=== PATIENT | male | born 1970 | race Caucasian/White ===

== ENCOUNTER 2021-12-02 06:25 | Inpatient (IN) | payer OTHER ==
[~2021-12-02] VITALS: Ht 182.9 cm; Wt 85.9 kg
[~2021-12-02 06:25] MED LIST: ASPI81CH PO; IBUP200 PO; LISI5 PO; Lisinopril-Hct1 EAC4 PO; METO50ER PO; NITR.4SL SL; SIMV5
[2021-12-02 06:54] LABS: BASOPHILS ABSOLUTE AUTO 0.05 K/mm3 (0.00-0.23); BASOPHILS PERCENT AUTO 0 % (0-2); EOSINOPHILS ABSOLUTE AUTO 0.07 K/mm3 (0.00-0.68); EOSINOPHILS PERCENT AUTO 1 % (0-6); Hematocrit 42.7 % (37.0-53.0); IMMATURE GRAN ABSOLUTE AUTO 0.05 K/mm3 (0.00-0.10); IMMATURE GRAN PERCENT AUTO 0 % (0-1); LYMPHOCYTES ABSOLUTE AUTO 0.84 K/mm3 (0.84-5.20); LYMPHOCYTES PERCENT AUTO 7 % (21-46); MONOCYTES ABSOLUTE AUTO 0.65 K/mm3 (0.16-1.47); MONOCYTES PERCENT AUTO 5 % (4-13); Mean Corpuscular HGB Conc 35.1 g/dL (31.5-36.5); Mean Corpuscular Volume 83 fL (80-100); Mean Platelet Volume 8.9 fL (9.1-12.4); NEUTROPHILS ABSOLUTE AUTO 11.09 K/mm3 (1.96-9.15); NEUTROPHILS PERCENT AUTO 87 % (41-73); Platelet Count 364 K/mm3 (150-400); RDW Coefficient Variation 14.6 % (11.7-14.2); RDW Standard Deviation 44.3 fL (35.1-46.3); Red Blood Cell Count 5.17 M/mm3 (4.30-5.90); White Blood Cell Count 12.75 K/mm3 (4.00-11.30)
[2021-12-02 07:10] LABS: Albumin/Globulin Ratio 0.6 (0.8-1.8); Bilirubin, Total 0.8 mg/dL (0.1-1.0); Calcium, Blood 9.5 mg/dL (8.5-10.1); Creatinine, Blood 0.67 mg/dL (0.60-1.20); Potassium, Blood 3.9 mmol/L (3.5-5.5)
--- NOTE | 2021-12-02 09:09 | NUR ---
History, Chart, Medications and Allergies reviewed before start of procedure.Patient confirms NPO status and agrees with scheduled surgery. Pre-Op teaching done. Pt verbalizes understanding. at bedside.
--- NOTE | 2021-12-02 09:53 | NUR ---
PT WAS EMERGENT, IN EXTREME PAIN, SWEATING, VOMITING, AND RUSHED BACK TO OR SOON ANESTHESIA AND DR HAD SEEN. PRE-OP MAY BE INCOMPLETE, COMPLETED TASKS TO THE BEST OF MY ABILITY IN THE GIVEN SITUATION.
--- NOTE | 2021-12-02 13:33 | NUR ---
ASSUMED CARE AT 1330, REPORT FROM ISAIAH MUELLER
--- NOTE | 2021-12-02 15:23 | NUR ---
AT 1430 REPORT GIVEN TO ANUM LIZ, HE WANTED TO MAKE SURE PT WAS SURG STATUS, AND TALK WITH DR ORDONEZ ABOUT TEMP DROP. RN KEPT PT IN PACU UNTILL SHE COULD GET CLAIFICATION FROM DR ORDONEZ WHO WAS IN SURGERY BUT ALMOST DONE. RN MOVED PT FROM PACU STATUS TO SURG AND PROVIDED VITALS/MONITORING. DR ORDONEZ UPDATED ON VITALS OKAY WITH PT GOING TO SURGICAL FLOOR. RN TOOK PT TO ROOM 211 WITH BELONGINGS.
--- NOTE | 2021-12-02 15:25 | NUR ---
1258 PT HAS 2 LIZETTE DRAINAGE TUBES, PICCO DRESSING WITH LEN UNDERNEATH, AND NEW STOMA PINK/RED COLORING.
--- NOTE | 2021-12-02 20:03 | NUR ---
ADMIT NOTE PATIENT NEW ADMIT TO UNIT FROM OR. WENT FROM ER TO OR WITH DR ORDONEZ FOR EX LAP FOR ABD PAIN. COLON CANCER FOUND IN SIGMOID COLON, COLECTOMY WAS DONE WITH LEFT ABD OSTOMY. MIDLINE SINCERE DRESSING C/D/I, AND BILAT LOWER LIZETTE DRAINS. METS WERE SEEN ON LIVER AND AND BOWEL WAS PERFED WITH STOOL IN ABD CAVITITY. PATIENT ARRIVED IN ROOM LETHARGIC BUT ABLE TO RESPOND APPROPRIATELY. ON 4L NC IN MOUTH. SATS STABLE IN 90S. NG TUBE TO RIGHT NARE. NG WAS PLACED TO LIWS. DILAUDID CNC MACHINE PROGRAMMER WAS STARTED. O2 WAS WEANED OFF. CONT BIOX WAS SET UP. IV FLUID WITH ABX WAS STARTED. SPOUSE WAS ATTENTIVE AT BEDSIDE. SULLIVAN PATENT AND DRAINING DARK DAVID URINE. REPORT GIVEN TO BLOCK HACKER RN.
[2021-12-03 04:07] LABS: Hemoglobin 13.1 g/dL (13.5-17.5); Mean Corpuscular HGB 28.7 pg (26.0-34.0); Mean Corpuscular HGB Conc 33.6 g/dL (31.5-36.5); Mean Corpuscular Volume 86 fL (80-100); Mean Platelet Volume 8.7 fL (9.1-12.4); Platelet Count 297 K/mm3 (150-400); RDW Coefficient Variation 15.4 % (11.7-14.2); RDW Standard Deviation 48.2 fL (35.1-46.3); Red Blood Cell Count 4.56 M/mm3 (4.30-5.90); White Blood Cell Count 11.69 K/mm3 (4.00-11.30)
[2021-12-03 04:30] LABS: BAND PERCENT MAN 41 % (0-8); BASOPHILS PERCENT MAN 0 % (0-2); EOSINOPHILS PERCENT MAN 0 % (0-6); LYMPHOCYTES ABSOLUTE MAN 0.35 K/mm3 (0.84-5.20); LYMPHOCYTES PERCENT MAN 3 % (21-46); MONOCYTES ABSOLUTE MAN 0.35 K/mm3 (0.16-1.47); MONOCYTES PERCENT MAN 3 % (4-13); NEUTROPHILS ABSOLUTE MAN 10.98 K/mm3 (1.96-9.15); SEG NEUTROPHILS PERCENT MAN 53 % (41-73); TOTAL CELLS COUNTED 100
[2021-12-03 04:32] LABS: Albumin, Blood 1.9 g/dL (3.4-5.0); Albumin/Globulin Ratio 0.5 (0.8-1.8); Bilirubin, Total 0.6 mg/dL (0.1-1.0); Bun/Creatinine Ratio 23.6 (12.0-20.0); Calcium, Blood 8.1 mg/dL (8.5-10.1); Creatinine, Blood 0.85 mg/dL (0.60-1.20); Potassium, Blood 4.3 mmol/L (3.5-5.5)
[2021-12-03 05:31] LABS: Total Protein, Blood 5.9 g/dL (6.4-8.2)
--- NOTE | 2021-12-03 07:15 | NUR ---
GRADUATE RESEARCH ASSISTANT SUMMARY POD 0 COLECTOMY WITH OSTOMY PLACEMENT. NO OUTPUT IN OSTOMY AT THIS TIME. APPROXIMATELY 260 ML OF OUTPUT BETWEEN BOTH LIZETTE DRAINS, LEFT DRAIN WITH SLIGHTLY MORE OUTPUT. MIDLINE SINCERE DRESSING C/D/I. PAIN WELL CONTROLLED WITH DILAUDID SPRING WINDER. PT ON 2-3L OF O2 SATTING 89-93%. MEDICATED WITH ATIVAN X2 FOR MILD WITHDRAWAL SYMPTOMS, PT VERY ANXIOUS AT TIMES AND DIAPHORETIC. PT ABLE TO SLEEP WELL AFTER ATIVAN. VSS, WCTM.
--- NOTE | 2021-12-03 10:30 | NUR ---
Call and new referral received for pt admitted yesterday with severe abd pain and emergent surgery due to bowel perforation from neoplasm. Pt found to have colon cancer with metastasis to liver. This is a new DX. Dr birch. Plan to see pt/ this afternoon for supportive visit. Pt has new colostomy and multiple drains placed after surgery. Pt also heavy alcohol user and withdrawl precautions, Rxs in place. RN reports pt and experiencing high level of anxiety.
--- NOTE | 2021-12-03 11:22 | NUR ---
SULLIVAN REMOVED. PT TOLERATING WELL. PT ENJOYING ICE CHIPS AT THIS TIME. DENIES NAUSEA OR INCREASE IN PAIN.
--- NOTE | 2021-12-03 13:50 | NUR ---
NOTIFIED BY TELE OF HR SUSTAINING IN THE 120'S. PT DENIES CHEST PAIN OR SOB. REPORTS ANXIETY INCREASING. MEDICATED WITH ATIVAN PER EMAR AND PER DR. ORDONEZ GIVE A 500CC BOLUS OF LR AT THIS TIME
--- NOTE | 2021-12-03 15:05 | NUR ---
Initial Pal Care visit: Case conferenced with pt's RN and reviewed EMR prior to my visit. Pt has a new dx as of yesterday of malignant neoplasm of the colon with mets to liver. He was in severe pain at home for three days and experienced perforation of the bowel, peritonitis and sepsis upon arrival in ER. Pt had emergent surgery. Pt appears older than his 51 years. He has etoh dependence and CAD. Pt appears anxious but is very receptive of visit. He denies severe pain or nausea currently and rates his pain at 3/10. He has an NG tube in place, which is clamped currently and allowed ice chips today, tolerating well. Pt is sitting up in chair. He states his went home for a bit. She was able to be present during Dr's visit earlier this am. After I introduced myself, I asked pt if he understood the information received and if he had any questions. He reports the plan is for a lot of testing over the next few days with results to be reviewed with him and sent to an oncologist for a consult, once obtained. He stated, "then they'll know if I am going to make it". He had asked his RN when he could return to work. He did not ask me about recovery timeframe and seems to be processing and understanding the gravity of his new cancer dx. Time spent listening and supporting pt. He reports that current medications have been effective in managing his pain, anxiety and nausea. Most pressing s/s currently, per pt, is anxiety. Pt agreeable to daily Pal Care visits for s/s managment and support. He expressed appreciation for the visit. Reported to RN on my visit before I left the unit.
--- NOTE | 2021-12-03 16:12 | NUR ---
SHIFT SUMMARY POD 1 EX LAP WITH NEW OSTOMY. NO FUNCTION IN OSTOMY, NO FLATUS HEARD, SEROUS DRAINAGE, SLIGHT AMOUNT IN BAG. MIDLINE PICCO REMAINS UNCHANGED AND MINIMAL DRAINAGE IN LIZETTE DRAINS. PT REPORTS NO PAIN OR NAUSEA SINCE TOLERATING ICE CHIPS. NG REMAINS CLAMPED. SULLIVAN REMOVED, AWAITING FIRST VOID SINCE REMOVAL. PT APPEARS TO BE SLIGHTLY CONFUSED AT TIMES, HE IS IMPULSIVE WITH SOME DECISIONS, ATTEMPTING TO TRANSFER SELF TO BED. HR REMAINS TACHY BUT DOWN TO LOW 110'S. DENIES ANY CHEST PAIN. DOWN TO 1L OXYGEN, SATS 92-94%.
--- NOTE | 2021-12-03 23:30 | NUR ---
INCREASED 02 NEEDS, TACYCARDIA PT HAS REQUIRED A INCREASE IN O2 THIS SHIFT. PT WENT FROM NEEDING 3-4; NC TO REQUIERING 8L VIA OXYMIZER. PT WAS HAVING A DIFFICULT TIME KEEPING HIS SATS ABOVE 90%. SATS RANGING IN THE MID TO UPPER 80'S. PT REPORTS SOB. PT LUNGS ARE CONGESTED, COURSE AND MOIST. PT HAS A NONPRODUCTIVE COUGH. PT REPORTS THAT HE IS UNABLE TO COUGH DEEPLY D/T THE PAIN. PT REMAINS TACYCARDIC ON TELE DISPITE 1.5 FLUID BOLUSES BY DAYSHIFT. HEART RATE IN THE 111-116 RANGE. TEMP IS 100.2-100.8 DESPITE COOLING MEASURES REMOVING BLANKETS AND COOLING ROOM TEMP. URINE OUTPUT IS LOW. 100 CC OUT AROUND 1800, NONE FOR THIS RN. DR. ORDONEZ CALLED AND NOTIFIED OF INCREASED O2 NEEDS, HR, URINE OUTPUT AND CONTINUED TACYCARDIA, FEVER. NO ADDITIONAL ORDERS TO ADDRESS HEART RATE. NEB TREATMENTS ORDERED TO HELP DECREASE O2 NEED. BLADDER SCAN ORDERED. WILL CONTINUE TO MONITOR. PT AND FAMILY AWARE OF CURRENT COURSE OF ACTION.
--- NOTE | 2021-12-04 01:21 | NUR ---
IV NO IV ACCESS FOR ZOSYN. LR AND DILAUDID MANAGER FOOD BEVERAGE RUNNING IN THE OTHER IV. PT HAS SECOND IV IN PLACE THAT IS NO LONGER PATENT.ONCOMING RN TO FOLLOW UP WITH IV ISSUE BEFORE STARTING 0000 ZOSYN.
--- NOTE | 2021-12-04 01:53 | NUR ---
IMPROVEMENT PT TEMP HAS IMPROVED, O2 NEEDS DECREASED AFTER NEB TREATMENT FROM 8L DOWN TO 6. PT BLADDER SCAN SHOWED 416, HE HAS NOW VOIDED 300. WILL REPORT TO ONCOMING RN FOR CONTINUED MONITORNING.
[2021-12-04 05:11] LABS: BASOPHILS ABSOLUTE AUTO 0.02 K/mm3 (0.00-0.23); BASOPHILS PERCENT AUTO 0 % (0-2); EOSINOPHILS ABSOLUTE AUTO 0.05 K/mm3 (0.00-0.68); EOSINOPHILS PERCENT AUTO 0 % (0-6); Hematocrit 35.4 % (37.0-53.0); IMMATURE GRAN PERCENT AUTO 1 % (0-1); LYMPHOCYTES ABSOLUTE AUTO 0.55 K/mm3 (0.84-5.20); LYMPHOCYTES PERCENT AUTO 4 % (21-46); MONOCYTES ABSOLUTE AUTO 0.72 K/mm3 (0.16-1.47); MONOCYTES PERCENT AUTO 5 % (4-13); Mean Corpuscular HGB 28.7 pg (26.0-34.0); Mean Corpuscular HGB Conc 33.9 g/dL (31.5-36.5); Mean Corpuscular Volume 85 fL (80-100); Mean Platelet Volume 9.3 fL (9.1-12.4); NEUTROPHILS ABSOLUTE AUTO 12.88 K/mm3 (1.96-9.15); NEUTROPHILS PERCENT AUTO 90 % (41-73); Platelet Count 309 K/mm3 (150-400); RDW Standard Deviation 46.8 fL (35.1-46.3); Red Blood Cell Count 4.18 M/mm3 (4.30-5.90); White Blood Cell Count 14.32 K/mm3 (4.00-11.30)
[2021-12-04 05:33] LABS: Albumin, Blood 1.9 g/dL (3.4-5.0); Anion Gap 6 mmol/L (6-16); Blood Urea Nitrogen 19 mg/dL (8-24); Bun/Creatinine Ratio 33.5 (12.0-20.0); CO2, Blood 28 mmol/L (21-32); Calcium, Blood 8.2 mg/dL (8.5-10.1); Chloride, Blood 99 mmol/L (98-108); Creatinine, Blood 0.57 mg/dL (0.60-1.20); Glomerular Filtration Rate 118 (60-); Glucose, Blood 99 mg/dL (70-99); Phosphorus, Blood 2.5 mg/dL (2.5-4.9); Potassium, Blood 3.9 mmol/L (3.5-5.5); Sodium, Blood 133 mmol/L (136-145)
--- NOTE | 2021-12-04 07:16 | NUR ---
SUMMARY ASSUMED CARE OF PT AT 215. AT 6 L N/C. SATS LOW TO MID 90'S.VOIDED TOTAL OF 300ML. MED WITH ZOFRAN.CONT WITH NAUSEA.NG OPENED TO SX WITH SUDDEN RETURN OF 700 ML OF BILE GREEN.PT HAS NEW POWER GLIDE LUE.DAY RN NOTES O2 REQUIREMENT INCREASED FROM DAY SHIFT YESTERDAY.NO OUTPUT EPR OSTOMY. DAY RN CALLED DR ORDONEZ AND HOSPITALIST CX CALLED FOR MEDICAL CONCERNS.
--- NOTE | 2021-12-04 07:42 | NUR ---
NOTIFED DR. ORDONEZ OF PATIENTS OUTPUT IN NG TUBE, INCREASED OXYGEN NEEDS AND HIS MENTATION. ORDERS RECIEVED FOR HOSPITALIST CONSULT. SPOKE WITH DR. ZAMARRIPA TO HELP MANAGE DELIRIUM AND WITHDRAWL SYMPTOMS. DR ZAMARRIPA CURRENTLY IN ROOM. AT BEDSIDE. PT RESTING IN BED. ABLE TO ANSWER ALL QUESTIONS APPRORPRIATLY, KNOWS DATE AND TIME, LOCATION, REASON FOR HOSPITALIZATION. BUT HAS ASKED THIS RN VARIOIUS QUESTIONS THAT ARE NONSENSICAL.
--- NOTE | 2021-12-04 11:34 | NUR ---
PT ATTEMPTING TO GET OUT OF BED. SPOUSE CALLED SHE WAS UNABLE TO REORIENT HIM. ATTEMPTING TO GET OUT OF BED WITH NO REGARD TO CORDS AND TUBES. THIS RN WAS ABLE TO GET HIM OUT OF BED ON SIDE OF BED WITH 2 ASSIST TO USE URINAL. PT DESATTED TO LOW 80'S WHILE STANDING AND TOOK APPROX 30-45 SECONDS TO RECOVER INTO LOW 90'S. PT VERY UNSTEADY AND IMPULSIVELY TRYING TO MOVE AROUND ROOM, WANTING TO GO FOR SMOKE, AGITATION WHEN REDIRECTING PATIENT. HE REFUSED TO ANSWER QUESTIONS BUT COULD NOT REMEMBER WHY HE WAS HERE EVEN AFTER BEING TOLD.
--- NOTE | 2021-12-04 13:37 | NUR ---
PT IS MUCH MORE CLEAR AT THIS TIME. HE HAS NO AGITATION AND HAS BEEN COMMUNICATING APPROPRIATLY. HE REPORTS ANXIETY IS DECREASED. HE IS SATTING 90-92% ON ROOM AIR CURRENTLY. VERY MILD TREMORS IN HANDS. ASKS SPOUSE TO CALL WHEN NEEDING TO VOID AT THIS TIME.
[2021-12-04 18:20] LABS: Source, Urine Foley catheter
[2021-12-04 18:33] LABS: Appearance, Urine Clear (Clear); Bilirubin, Urine Neg (Neg); Blood, Urine Neg (Neg); Glucose Qualitative, Urine Neg (Neg); Ketones, Urine Neg (Neg); Leukocyte Esterase, Urine Neg (Neg); Nitrite, Urine Neg (Neg); Protein, Urine Neg (Neg); Specific Gravity, Urine 1.005 (1.003-1.022); Urobilinogen, Urine NORM (Normal)
[2021-12-04 18:39] LABS: Color, Urine Pale Yellow (P-Yellow)
--- NOTE | 2021-12-04 19:15 | NUR ---
ASSUMPTION OF CARE BEDSIDE REPORT RECEIVED FROM ALANIS MUELLER. PT TRANSFERRED FROM SURGICAL FLOOR THIS EVENING. OMID RN AT BEDSIDE PERFORMING DRESSING CHANGE. PT HAS A MIDLINE SINCERE DRAIN, BILATERAL LIZETTE DRAINS WITH SEROSANGUANOUS DRAINAGE AND L SIDED COLOSTOMY. STOMA RED, NO DRAINAGE OR GAS IN BAG. NO BOWEL TONES AUDIBLE. NG CLAMPED. PT IS A&OX3. PT ANSWERS QUESTIONS BUT THEN SAYS NONSENSICAL PHRASES. HE REPEATEDLY ASKS FOR "ARLEN" AND "I HAVE SEPSIS". HE IS CONSTANTLY RESTLESS, PULLING AGAINST RESTRAINTS, ATTEMPING TO SIT UP. PT IS NOT REDIRECTABLE. HE VERBALIZES UNDERSTANDING BUT CONTINUES BEHAVIOR. PRECEDEX INCREASED TO 07MCG/KG/HR AND MEDICATED PER EMAR. CIWA 20. PT DENIES ABDOMINAL PAIN AND STS "I FEEL GREAT". LR INFUSING AT 100ML/HR. SINUS RHTYHM ON MONITOR WITH RATE 90S, SBP 120S. STRONG PULSES. HE IS ON 2L NC WITH SPO2 >93%. RR 20-30 WHILE RESTLESS. POWERGLIDE TO SULAIMAN, PERIPHERAL IV TO RFA. SEE SHIFT ASSESSMENT.
--- NOTE | 2021-12-04 19:16 | NUR ---
pt transfered to icu. report given at bedside to recieving nurse. belongings sent with patient and notified by credit charge authorizer. Midline picco dressing changed upon arrival. small dehisced spot approx 6 aleksandar up from bottom of incision. otherwise midline incision cdi. no redness noted around incision. stoma pink and beefy in appearance. lumen pointing down. 2 1/ appliance applied.
--- NOTE | 2021-12-04 19:19 | NUR ---
Transfer from surgical floor to ICU 11 Pt hypertensive and tachy. A/O to location, date/year, and able to follow directions occasionally. Pulling at lines/tubes/cords unable to redirect, SWB in place. Lawson placed and temp of 103.6, ice packs in place and treated per emar. NG tube in place and medications given per emar. Post surgery patient with midline picco dressing in place, monitor flashing green light. Small dehisced spot (6 aleksandar up from bottom of incision). Two beau drains in place. Stoma pink and beefy, no drainage currently, Surgical nurse Jono montilla at bedside changing dressings. Overall patient dusky and diaphoretic. CIWA 24, report givent nightshift and asked to treat per emar. Pt on MEDICAL EDUCATION COORDINATOR, DC'd due to low mentation and provider made aware. Treat per emar for pain. Pt in SVT for 16 beats, HR 170's, shortly after arrival. Dr. Larkin made aware. No new orders. Pt currently in sinus tach. Bedside report recieved from surgical floor and report given to oncoming nurse Kiara. See nurse shift assessment.
--- NOTE | 2021-12-05 02:10 | NUR ---
UPDATE PT MEDICATED PER EMAR FOR AGITATION AND WITHDRAWAL SYMPTOMS. CIWA 20, DECREASED TO 10. PRECEDEX AT 0.7MCG/KG/HR, TITRATION DUE TO PT ATTEMPTING TO REMOVE RESTRAINTS, SITTING UP AND TRYING TO GET OUT OF BED. PT IS NOT REDIRECTABLE. PT NOW SLEEPING, WAKENS TO VERBAL STIMULI BUT REMAINS DROWSY. PT'S CORE TEMP DECREASING, ICE PACKS REMOVED AND WARM BLANKETS APPLIED. SULLIVAN TEMP 95.0. VERIFIED WITH TEMPORAL, ORAL, AND RECTAL TEMP THAT WERE ALL CONSISTENT BETWEEN 94-96. BEAR HUGGER IN PLACE WITH MULTIPLE BLANKETS. PT HAD 9 BEAT RUN OF SVT, HR THEN DECREASED TO 40S FOR A FEW SECONDS AND INCREASED TO 70S. SINCE EVENT, HR HAS REMAINED IN 70S. BP STABLE. PRECEDEX TITRATED TO 0.4MCG/KG/HR THEN PLACED ON STANDBY.
[2021-12-05 04:24] LABS: BASOPHILS ABSOLUTE AUTO 0.03 K/mm3 (0.00-0.23); BASOPHILS PERCENT AUTO 0 % (0-2); EOSINOPHILS ABSOLUTE AUTO 0.16 K/mm3 (0.00-0.68); EOSINOPHILS PERCENT AUTO 1 % (0-6); Hemoglobin 11.8 g/dL (13.5-17.5); IMMATURE GRAN ABSOLUTE AUTO 0.07 K/mm3 (0.00-0.10); IMMATURE GRAN PERCENT AUTO 1 % (0-1); LYMPHOCYTES ABSOLUTE AUTO 0.69 K/mm3 (0.84-5.20); LYMPHOCYTES PERCENT AUTO 6 % (21-46); MONOCYTES ABSOLUTE AUTO 0.94 K/mm3 (0.16-1.47); MONOCYTES PERCENT AUTO 8 % (4-13); Mean Corpuscular HGB 28.8 pg (26.0-34.0); Mean Corpuscular HGB Conc 33.7 g/dL (31.5-36.5); Mean Corpuscular Volume 85 fL (80-100); Mean Platelet Volume 8.5 fL (9.1-12.4); NEUTROPHILS ABSOLUTE AUTO 10.51 K/mm3 (1.96-9.15); NEUTROPHILS PERCENT AUTO 85 % (41-73); Platelet Count 300 K/mm3 (150-400); RDW Coefficient Variation 14.6 % (11.7-14.2); RDW Standard Deviation 45.6 fL (35.1-46.3)
[2021-12-05 04:41] LABS: Albumin, Blood 1.7 g/dL (3.4-5.0); Anion Gap 8 mmol/L (6-16); Blood Urea Nitrogen 20 mg/dL (8-24); Bun/Creatinine Ratio 27.1 (12.0-20.0); CO2, Blood 30 mmol/L (21-32); Calcium, Blood 7.9 mg/dL (8.5-10.1); Chloride, Blood 96 mmol/L (98-108); Creatinine, Blood 0.74 mg/dL (0.60-1.20); Glomerular Filtration Rate 109 (60-); Glucose, Blood 103 mg/dL (70-99); Magnesium, Blood 2.2 mg/dL (1.6-2.4); Phosphorus, Blood 4.1 mg/dL (2.5-4.9); Potassium, Blood 3.1 mmol/L (3.5-5.5); Sodium, Blood 134 mmol/L (136-145)
--- NOTE | 2021-12-05 05:50 | NUR ---
SHIFT SUMMARY PT IS RECEIVING PRECEDEX 0.4MCG/KG/HR AND LR 100ML/HR. PT IS A&OX3. PT WILL ANSWER QUESTIONS BUT HAS FREQUENT EPISODES OF CONFUSION, MUMBLING WORDS AND MAKING NONSENSICAL STATEMENTS. PT OCCASIONALLY ATTEMPTS TO SIT UP IN BED, PULLS AGAINST RESTRAINTS AND IS NOT REDIRECTABLE. HE MAKES STRONG AND PURPOSEFUL MOVEMENTS WITH ALL EXTREMITIES. MOST RECENT CIWA 13. PT CONFUSED, SOMETIMES FEARFUL, TREMULOUS AND VISIBLY SWEATING. MEDICATED THROUGHOUT NIGHT PER EMAR. LUNG SOUNDS CLEAR T/O. 2L NC WITH SPO2 >95%, RR 14-26. OGT TO LOW CONTINUOUS SUCTION WITH 350ML DARK GREEN OUTPUT. SINCERE DRESSING C/D/I ON MIDLINE. BILAT LIZETTE DRAINS DRAINING SEROUS FLUID. R DRAIN HAD 60ML OUTPUT, L DRAIN 80ML. LLQ COLOSTOMY HAD ZERO OUTPUT. STOMA IS PINK. PT C/O 5/10 ADB PAIN. SULLIVAN PATENT AND DRAINING WITH SHIFT OUPUT OF 925ML. AT THE BEGINNING OF THE SHIFT URINE WAS CLEAR YELLOW, NOW IT IS DARK DAVID. SINUS RHYTHM ON MONITOR WITH RATE 70S-80S, BP STABLE. POWERGLIDE TO SULAIMAN, PERIPHERAL IV IN RFA. TMAX 103.5, CURREMT TEMP 98.7. WILL REPORT TO ONCOMING RN.
--- NOTE | 2021-12-05 07:30 | NUR ---
ASSUMPTION OF CARE RECEIVED REPORT FROM DEAN MUELLER AT 0700, ASSUMED CARE OF PATIENT. PATIENT IN BED, EYES CLOSED. EASILY AGITATED TO VERBAL AND PHYSICAL STIMULI. PATIENT MUMBLING WORDS AND ATTEMPTED TO PULL AT LINES AND WAS SITTING UP. VERBAL REASSURANCE, PATIENT RESPONDED AND ANSWERED QUESTIONS ABOUT PAIN APPROPRIATELY. 2L [address] WITH SP02 ABOVE 90%. NG TO RIGHT NARE TO CONTINUOUS SUCTIONS WITH SCANT GREEN OUTPUT. MIDLINE ABD SURGICAL INCISION COVERED WITH DRESSING AND WOUND VAC, C/D/I. BILATERAL LIZETTE DRAINS TO LOWER ABD QUADRANTS WITH SCANT S/S DRAINAGE. SULLIVAN PATENT AND DRAINING DAVID URINE. PRECEDEX INFUSING AT 0.4MCG/KG, POTASSIUM REPLACEMENT INFUSING ORDERED. WILL REVIEW ORDERS AND TREAT PRESCRIBED.
[2021-12-05 14:37] LABS: Bun/Creatinine Ratio 27.2 (12.0-20.0); Calcium, Blood 8.3 mg/dL (8.5-10.1); Creatinine, Blood 0.7 mg/dL (0.60-1.20); Potassium, Blood 3.3 mmol/L (3.5-5.5)
--- NOTE | 2021-12-05 18:24 | NUR ---
SHIFT SUMMARY PATIENT CONFUSED, CIWA UP TO 18. PRECEDEX INFUSING CURRENTLY AT 0.7MCG/KG, WITH PRN ATIVAN PUSHES NEEDED. PATIENT REPORTS PAIN CLEARLY, DILAUDID PRN GIVEN CHARTED. 2L [address] NC [address] WITH SP02 ABOVE 90%. NG TO RIGHT NARE REMAINS TO LOW CONTINUOUS SUCTION WITH GREEN OUTPUT. HEART RATE AND BLOOD PRESSURE REMAIN STABLE WITH METOPROLOL SCHEDULED. PPN INITIATED. WOUND TO MID ABD WITH SINCERE DRAIN, REDRESSED DUE TO ISSUES WITH SEAL. BILAT LOWER QUADRANT DRAINS INTACT WITH S/S DRAINAGE. SULLIVAN PATENT AND DRAINING DAVID URINE. POTASSIUM REPLACED CHARTED, LASIX REMAINS SCHEDULED. FEBRILE WITH TYLENOL WV GIVEN, FAN IN PLACE. TEMPERATURE CURRENTLY 101.2 WITH MAX OF 103.5. FAN TO BEDSIDE WITH BLANKETS REMOVED. WILL REPORT TO ONCOMING RN.
--- NOTE | 2021-12-05 19:20 | NUR ---
ASSUMPTION OF CARE BEDSIDE REPORT GIVEN BY DANNY MUELLER. PT RECEIVED RELAXING IN BED IN SOFT UPPER EXTREMETY RESTRAINTS. PT VSS. PT NOTED TO BE WEARING 3L NC, AND RECEIVING IV INFUSIONS LR, POTASSIUM REPLACEMENT, PPN AND PRECEDEX. PT NOTED TO HAVE ML INCISION WITH DRSG CDI, TWO IRA DRAINS IN PLACE DRAINING MOSTLY SEROUS FLUID. OSTOMY NOTED WITH NO COTENTS IN BAG. SOME MOISTURE IN BAG NOTED. SMALL STOMA NOTED BUT NOT WELL VISUALIZED. STOMA RED IN COLOR WITH NO OUTPUT. SULLIVAN CATHETER IS DRAINING CLEAR YELLOW URINE AND IS PATENT AND SECURE. PT ROOM CLOSE TO THE NURSES STATION, BED IN LOW POSITION AND LOCKED. SEE ASSESSMENT FOR FURTHER DETAILS. WILL CONTINUE TO MONITOR.
--- NOTE | 2021-12-06 | NUR ---
FOLLOW UP ASSESSMENT PT REMAINS RESTRAINED IN BED ON PRECEDEX GTT. PT REQUIRING SEVERAL DOSES OF IV ATIVAN DUE TO HIGH CIWA SCORES AND PT PRESENTATION. PT ANXIOUS, AGITATED AND CONFUSED. PT ATTEMPTING TO PULL NG TUBE OUT THAT IS TO LWS. ML ABD INCISION DRSG IS CDI. IRA DRAINS REMAIN DRAINING SEROUS FLUID. SEE I&O SHEET FOR RECORDING OF THESE OUTPUTS. VITALS HAVE BEEN STABLE DESPITE PT AGITATION. LUNGS ARE NOTABLY DIMINISHED, WEARING 3L NC. NO OUTPUT FROM END COLOSTOMY NOTED. URINE OUTPUT ADEQUATE. PT HAS BECOME FEBRILE. TYLENOL SUPPOSITORY GIVEN. WILL CONTINUE TO MONITOR.
[2021-12-06 03:47] LABS: BASOPHILS ABSOLUTE AUTO 0.06 K/mm3 (0.00-0.23); BASOPHILS PERCENT AUTO 0 % (0-2); EOSINOPHILS ABSOLUTE AUTO 0.15 K/mm3 (0.00-0.68); EOSINOPHILS PERCENT AUTO 1 % (0-6); Hematocrit 39.5 % (37.0-53.0); Hemoglobin 13.2 g/dL (13.5-17.5); IMMATURE GRAN ABSOLUTE AUTO 0.12 K/mm3 (0.00-0.10); IMMATURE GRAN PERCENT AUTO 1 % (0-1); LYMPHOCYTES ABSOLUTE AUTO 1.13 K/mm3 (0.84-5.20); LYMPHOCYTES PERCENT AUTO 6 % (21-46); MONOCYTES PERCENT AUTO 12 % (4-13); Mean Corpuscular HGB 28.4 pg (26.0-34.0); Mean Corpuscular HGB Conc 33.4 g/dL (31.5-36.5); Mean Corpuscular Volume 85 fL (80-100); Mean Platelet Volume 9.1 fL (9.1-12.4); NEUTROPHILS ABSOLUTE AUTO 14.57 K/mm3 (1.96-9.15); NEUTROPHILS PERCENT AUTO 80 % (41-73); Platelet Count 351 K/mm3 (150-400); RDW Coefficient Variation 14.8 % (11.7-14.2); RDW Standard Deviation 45.6 fL (35.1-46.3); Red Blood Cell Count 4.65 M/mm3 (4.30-5.90); White Blood Cell Count 18.13 K/mm3 (4.00-11.30)
[2021-12-06 04:03] LABS: Alanine Aminotransfer (ALT/SGP 21 U/L (12-78); Albumin, Blood 1.7 g/dL (3.4-5.0); Albumin/Globulin Ratio 0.4 (0.8-1.8); Alk Phos 85 U/L (50-136); Anion Gap 4 mmol/L (6-16); Aspartate Aminotrans (AST/SGOT 23 U/L (12-37); Bilirubin, Total 0.5 mg/dL (0.1-1.0); Blood Urea Nitrogen 17 mg/dL (8-24); Bun/Creatinine Ratio 26.9 (12.0-20.0); CO2, Blood 32 mmol/L (21-32); Calcium, Blood 8.3 mg/dL (8.5-10.1); Chloride, Blood 99 mmol/L (98-108); Creatinine, Blood 0.63 mg/dL (0.60-1.20); Globulin, Blood 4.4 g/dL (2.2-4.0); Glomerular Filtration Rate 114 (60-); Glucose, Blood 146 mg/dL (70-99); Magnesium, Blood 2.1 mg/dL (1.6-2.4); Phosphorus, Blood 2.3 mg/dL (2.5-4.9); Potassium, Blood 3.6 mmol/L (3.5-5.5); Sodium, Blood 135 mmol/L (136-145); Total Protein, Blood 6.1 g/dL (6.4-8.2); Triglycerides 101 mg/dL (30-160)
--- NOTE | 2021-12-06 04:37 | NUR ---
FOLLOW UP ASSESSMENT PT ASLEEP IN BED WEARING NASAL CANNULA. PT REMAINS RESTRAINED. PT HAD ONE EPISODE AROUND 0330 WHERE PT DESAT TO 79 AND WAS PLACED ON NRB FOR A FEW MINUTES AND RECOVERED QUICKLY AFTER SOME DEEP BREATHING AND COUGHING. PT COUGHED UP LARGE AMOUNT OF MUCUS. PT SWALLOWED THIS BEFORE WE COULD COLLECT THE SPUTUM. PT HAS BEEN MORE TACHYPNEIC THIS LAST HOUR. PT COMFORT OPTIMIZED. PT REMAINS ON PRECEDEX ON 0.7. LR @ 100. POTASSIUM REPLACEMENT HAS FINISHED. PRN ATIVAN AND PAIN MEDICINE GIVEN PT NEED. PT BLOOD CULTURES PRELIMINARY RESULT CAME BACK GRAM POSITIVE COCCI IN CL[facility]ERS AND THIS RESULT WAS CALLED TO DR. WRIGHT. PT IS ON ZOSYN. NO FURTHER ORDERS GIVEN. VITALS STABLE AT THIS TIME. WILL CONTINUE TO MONITOR.
--- NOTE | 2021-12-06 06:26 | NUR ---
SHIFT SUMMARY PT HAS BEEN STABLE FOR MOST OF THE NIGHT. MOST OF THIS PATIENT ISSUES ARE PAIN AND ETOH WITHDRAWAL. CIWA IN THE TEENS ALL NIGHT. SEE ALCOHOL WITHDRAWAL ASSESSMENT. LORAZEPAM GIVEN FOR THIS RATING AND PT AGITATION/CONFUSION. PT RESTRAINED THROUGHOUT THE NIGHT. RESTRAINTS ARE NOT APPROPRIATE FOR REMOVAL AT THIS TIME DUE TO PT INABILITY TO FOLLOW DIRECTIONS. PRECEDEX HAS BEEN INFUSING AT 0.7 ALL NIGHT. PT VSS THROUGHOUOT THE NIGHT. PT ABDOMEN IS DISTENDED, BOWEL SOUNDS ARE HYPOACTIVE AND NO OUTPUT NOTED IN COLOSTOMY BAG. UOP HAS BEEN ADEUATE. WILL PASS ALONG REPORT TO AM NURSE WHEN AVAILABLE. WILL CONTINUE TO MONITOR.
--- NOTE | 2021-12-06 08:00 | NUR ---
RECEIVED PT AT 0700, PT RESTRAINED, ASKING TO BE UNRESTRAINED. STATES HE NEEDS TO "STAND UP AND PEE". REORIENTED. PPN INFUSING @ 95ML/HR, PRECEDEX @ 0.7MCG, LR @ 100ML/HR. PIV IN RIGHT ARM, PG IN LEFT. SULLIVAN TO GRAVITY DRAINAGE. ABD DRESSING C/D/I, IRA X 2 LLQ/RLQ, COLOSTOMY INTACT WITH CONDENSATION. SEE ASSESS MENT FOR DETAILS.
--- NOTE | 2021-12-06 16:48 | NUR ---
PT HAS BEEN RESTLESS, THINKING HE IS AT THE BANK, AT THE BEDSIDE, SHE WAS WASHING HIS FACE AND HE TOLD HER NOT TO TELL "JESICA" (SHE WAS THE ONE DOING IT). HIS TEMP CAME DOWN WITH THE TORADOL. HE DENIES BELLY PAIN WHEN QUESTIONED IRA DRAINS WITH GOOD OUTPUT, SEROUS. NO DRAINAGE FROM MIDLINE INCISION. NO OUT- PUT FROM OSTOMY YET. CONTINUES TO BE TURNED Q2 AND PRN. ORAL CARE Q4.
--- NOTE | 2021-12-06 18:31 | NUR ---
PT HAS BEEN SLEEPING ON AND OFF T/O THE DAY. HE HAS BEEN ABLE TO SAY HE IS AT THE HOSPITAL AT VARYING TIMES T/O THE DAY. HE HAS SAID HE WAS AT THE BANK, HE WAS IN [place], HE ASKS TO GO OUTSIDE AND SMOKE, HE WANTS TO GO HOME. OCC. REDIRECTABLE. HE WAS MEDICATED WITH LIBRIUM PER TUBE, ATIVAN 1MG, AND TORADOL 15MG T/O THE SHIFT. HE HAD 50 AND 70 ML OUT THE IRA'S, L > R. ABD DRESSING REMAINS C/D/I, NO CHANGE IN OSTOMY. CONTINUES ON PPN @ 95, PRECEDEX @ 0.7MCG/KG, SULLIVAN TO GRAVITY DRAINAGE. AT BEDSIDE MOST OF THE AFTERNOON. WHEN ASKED ABOUT PAIN, DENIES. HAS BEEN REPOSITIONED Q2 AND PRN, ORAL CARE DONE Q4. COUGH MOIST, UNABLE TO PRODUCE. STATES THAT HE HAS COUGH EVERY DAY FROM SMOKING, SOUNDS VERY SIMILAR. BOWEL TONES QUIET.
--- NOTE | 2021-12-06 19:08 | NUR ---
ASSUMPTION OF CARE REPORT RECEIVED AT THE BEDSIDE WITH THIS PATIENT AND HIS . PT IS CURRENTLY CALM, HOLDING HIS WIFES HAND. PT APPEARS DROWSY. PT HAS A NG TUBE TO LWS DRAINING GREEN CONTENTS. PT IS CURRENTLY RECEIVING A PRECEDEX INFUSION AT 0.7 MCG/KG/HR. PT IS ALSO GETTING A PHOSPHORUS INFUSION AND PPN. NEW ANTIBIOTICS WERE ORDERED TODAY FOR COVERAGE OF PRELIMINARY POSITIVE BLOOD CULTURE. PT HAS A SULLIVAN IN PLACE AND IT IS PATENT, SECURE AND DRAINING TO GRAVITY. PT NOTED TO HAVE MIDLINE INCISION, IRA DRAINS X2 AND COLOSTOMY. THESE SITES WERE VISUALIZED BY THER MEDICAL TEAM AND THEY STATED THESE APPEARED EXPECTED. PT VITALS ARE STABLE AT THIS TIME. WILL CONTINUE TO MONITOR.
--- NOTE | 2021-12-07 00:22 | NUR ---
FOLLOW UP ASSESSMENT PT RESTING COMFORTABLY IN BED ON HIS LEFT SIDE. PT GIVEN PRN ATIVAN AND DILAUDID FOR PAIN. PT C/O ABDOMINAL PAIN AT 8. SEE PREVIOUS PAIN ASSESSMENTS. NO ACUTE DISTRESS NOTED AT THIS TIME. PT FEVER FINALLY SUBSIDING WITH A SULLIVAN TEMP OF 99.9. PT REMAINS CONFUSED AND CIWA ASSESSMENTS ARE BEING PERFORMED TO ASSESS S/S OF WITHDRAWAL AND TO MEDICATE THEM APPROPRIATELY TO AVOID ANY ADVERSE EVENTS THAT CAN RESULT IN ETOH WITHDRAWAL. NG REMAINS TO LWS EXCEPT WHEN RECEIVING PO MEDS IN WHICH IT IS CLAMPED FOR SOME TIME AFTER ADMINISTRATION. SULLIVAN CATHETHER OUTPUT CLEAR YELLOW. SULLIVAN CATHETER PATENT, SECURE AND DRAINING INTO SULLIVAN COLLECTION CONTAINER BY GRAVITY. PT REMAINS ON 0.7 OF PRECEDEX VIA POWERGLIDE IV IN SULAIMAN. PT REMAINS IN RESTRAINTS AND HAS PERIODS OF AGITATION THAT REQUIRE ATIVAN AT TIMES. ML INCISION IS COVERED BY A DRESSGING THAT IS CDI. TWO IRA DRAINS ARE DRAINING SEROUS FLUID ON EACH SIDE OF THE ABDOMEN. VITALS HAVE REMAINED STABLE. WILL CONTINUE TO MONITOR.
[2021-12-07 03:45] LABS: BASOPHILS ABSOLUTE AUTO 0.06 K/mm3 (0.00-0.23); BASOPHILS PERCENT AUTO 0 % (0-2); EOSINOPHILS ABSOLUTE AUTO 0.34 K/mm3 (0.00-0.68); EOSINOPHILS PERCENT AUTO 2 % (0-6); Hematocrit 36.1 % (37.0-53.0); Hemoglobin 12.3 g/dL (13.5-17.5); IMMATURE GRAN ABSOLUTE AUTO 0.13 K/mm3 (0.00-0.10); IMMATURE GRAN PERCENT AUTO 1 % (0-1); LYMPHOCYTES ABSOLUTE AUTO 1.24 K/mm3 (0.84-5.20); LYMPHOCYTES PERCENT AUTO 8 % (21-46); MONOCYTES ABSOLUTE AUTO 1.26 K/mm3 (0.16-1.47); MONOCYTES PERCENT AUTO 8 % (4-13); Mean Corpuscular HGB 28.5 pg (26.0-34.0); Mean Corpuscular HGB Conc 34.1 g/dL (31.5-36.5); Mean Corpuscular Volume 84 fL (80-100); Mean Platelet Volume 9.1 fL (9.1-12.4); NEUTROPHILS PERCENT AUTO 80 % (41-73); Platelet Count 346 K/mm3 (150-400); RDW Coefficient Variation 14.9 % (11.7-14.2); RDW Standard Deviation 45.7 fL (35.1-46.3); Red Blood Cell Count 4.32 M/mm3 (4.30-5.90); White Blood Cell Count 15.03 K/mm3 (4.00-11.30)
[2021-12-07 04:00] LABS: Bun/Creatinine Ratio 18.9 (12.0-20.0); Creatinine, Blood 0.9 mg/dL (0.60-1.20); Magnesium, Blood 2.2 mg/dL (1.6-2.4); Phosphorus, Blood 3.9 mg/dL (2.5-4.9); Potassium, Blood 3.3 mmol/L (3.5-5.5)
--- NOTE | 2021-12-07 04:00 | NUR ---
FOLLOW UP ASSESSMENT PT REMAINS RESTRAINED RESTING IN BED. PT HAS BEEN SLEEPING INTERMITTENTLY THROUGHOUT THE NIGHT BUT SEEMS MORE CONFUSED THIS NIGHT. PT CIWA SCORE HAS BEEN HIGH AND HAS REQUIRED SEVERAL DOSES OF ATIVAN. SEE EMAR AND CIWA DOCUMENTATION. VITALS HAVE REMAINED STABLE AND PT TEMP HAS WENT DOWN WITH ADJUSTMENT OF PT ENVIRONMENT AND MEDICATION. PT COMPLAINING WITH ABDOMEN HURTING. PT REPOSITIONED AND GIVEN PILLOW SUPPORT. ALSO SEE EMAR PAIN DYNAMICS AX TECHNICAL ARCHITECT. PT REMAINS ON PRECEDEX AT 0.7 MCG/KG/HR. EXCELLENT UOP NOTED IN SULLIVAN CATHETER. PT TUBES, DRAINS AND LINES SECURE AND PATENT. VSS. WILL CONTINUE TO MONITOR.
--- NOTE | 2021-12-07 06:22 | NUR ---
SHIFT SUMMARY OVERNIGHT PT HAS REMAINED CONFUSED, REQUIRING RESTRAINTS. PT HAS NGT PLACED IN RIGHT NOSTRIL CONNECTED TO LWS DRAINING DARK GREEN CONTENTS. PT HAS A DRESSING OVER A ML INCISION THAT IS CDI. THIS WAS CHANGED YESTERDAY BY DR. DELGADO. PT ALSO HAS A COLOSTOMY IN PLACE. APPLIANCE FITS WELL AND STOMA IS NOTED TO BE PINK/RED BUT HAS NOT HAD ANY DRAINAGE. IRA DRAINS NOTED ON RIGHT AND LEFT SIDE. BOTH DRAINS ARE PRODUCING SEROSANGUINOUS DRAINAGE WITH LEFT IRA PRODUCING > THAN RIGHT IRA. URINE OUTPUT FOR THIS SHIFT WAS EXCELLENT. SULLIVAN SECURE IN PLACE. PRECEDEX INFUSING AT 0.7 MCG/KG/HR. TKO INFUSING IN OTHER LUMEN OF POWERGLIDE TO GIVE IV ABX INTERMITTENTLY. PPN INFUSING IN PIV IN RIGHT WRIST. VITALS HAVE BEEN STABLE OVERNIGHT. PT NEEDS AGGRESSIVE PULMONARY TOILETING. WILL GIVE REPORT TO DAY RN WHEN AVAILABLE.
[2021-12-07 08:43] LABS: Vancomycin, Trough 18.2 ug/mL (5.0-10.0)
--- NOTE | 2021-12-07 12:43 | NUR ---
CARE OF PT ASSUMED AT 0700. PT SLEEPING, SEDATED ON PRECEDEX AT 0.7MCG. PPN AT 95CC/HR. RIGHT NGT TO LIS W MOD AMT BILE OUTPUT. TYPANIC BT'S PRESENT T/O. NO OUTPUT TO COLOSTOMY. STOMA IS LIN. FLEETS ENEMA GIVEN VIA STOMA PER DR ORDONEZ W/O MUCH OUTPUT. IRA DRAINAGE TO RIGHT SIDE SM AMT OF SEROUS DRAINAGE. LEFT IRA DRAINING LARGER AMT OF SS FLUID. PT MOANS W CARE, ABLE TO FOLLOW SOME SIMPLE COMMANDS. PT TEMP TRENDING UP T/O SHIFT, BP TRENDING DOWN. DR ORDONEZ CALLED AND UPDATED, DR ZAMARRIPA CALLED WELL. STAT CT OF ABD/PELVIS ORDERED. DR CASTRO CONSULTED AND UPDATED. CT OF CHEST ORDERED. TYLENOL CA GIVEN FOR TEMP 102.5. FAN ON PT, BLANKETS REMOVED, WILL ADD ICE APACKS. DILAUDID GIVEN W FLEETS ENEMA PT VERY UNCOMFORATBLE WHEN ABD TOUCHED. ATIVAN GIVEN DURING CT SCAN PT BECAME AGITATED JUST PRIOR TO SCAN. PICC LINE TO BE PLACED. PT'S CALLED AND UPDATED TWICE.
--- NOTE | 2021-12-07 13:11 | NUR ---
DR ORDONEZ IN TO SEE PT. THERE IS A STAPLE THAT HAD COME LOOSE AND MAY BE REMOVED AT ANY TIME. PT EXAMINED BY DR ORDONEZ. AFTER PICC PLACED CPN MAY BE STARTED.
--- NOTE | 2021-12-07 18:49 | NUR ---
SUMMERY: PT'S BP DID TREND DOWNWARD TODAY W MAP .65. LASIX DC'D BY DR CASTRO, LOPRESSOR HELD. BP MORE STABLE NOW. TMAX 102.8. TYLENOL GIVEN, ICE PACKS PLACED. CT OF CHEST/ABD/PELVIS COMPLETE. DR ORDONEZ IN SEVERAL TIMES TO CHECK ON PT. DR CASTRO CONSULTED. DR CASTRO CALLED AT 1400 FOR INCREASING O2 NEEDS. PT SEDATED BUT ABLE TO WAKE AND COUGH WHEN ASKED. COUGH STRONG BUT UNABLE TO BRING UP MUCUS. PT NT SUCTIONED SEVERAL TIMES W LARGE AMT OF THICK SPUTUM. SPUTUM SAMPLE SENT. CHST XRAY ORDERED AND TAKEN AT 1400. PT NOW ON 13L O2 VIA HIGH FLOW N/C. SATS >90% PRECEDEX INCREASED TO 1.4MCG PER DR CASTRO. ATIVAN GIVEN 3 TIMES FOR ETOH W/D/AGITATION. PT REMAINED CONFUSED T/O SHIFT, COOPERATIVE AND REDIRECTABLE AT TIMES. PT REQUIRED A FEW DOSES OF DILAUDID FOR ABD PAIN. NGT PUT OUT 500CC BILE. FLEETS ENEMA GIVEN VIA OSTOMY PER DR ORDONEZ AND HAS STARTED PRODUCING SM AMT OF LIQUID BROWN STOOL. PT DID WAKE UP AND ASK FOR BEER SEVERAL TIMES. PICC LINE PLACED. AT BEDSIDE AND GIVEN SEVERAL UPDATES T/O SHIFT. BOTH DR CASTRO AND DR ORDONEZ SPOKE W PT'S .
--- NOTE | 2021-12-07 20:00 | NUR ---
ASSUMPTION OF CARE REPORT RECEIVED AT THE BEDSIDE WITH PRESENT. PT PRESENTS DROWSY IN BED AND LOOKS PALE. PT'S OXYGEN REQUIREMENTS MORE THAN DOUBLED TODAT. PT HAS HAD A VERY WEAK, PRODUCTIVE COUGH THAT REQUIRED NT SUCTIONING ON THIS DAY. PT IS ON 15L HFNC, PT NSR ON THE MONITOR. PT HAS NEW PICC PLACED IN [place] THAT IS PATENT AND SECURE. PT ABDOMEN OBSEVRED WITH OFF-GOING NURSE AND PT HAS A DRESSING OVER COLECTOMY INCISION. PT HAS ONE REMAINING STAPLE THAT WE HAVE BEEN INSTRUCTED TO REMOVE BUT PT IS DISTENDED AND THERE IS CONCERN FOR DEHISCENCE SO STAPLE REMOVAL WAS DECIDED AGAINST. PT ALSO NOTED TO HAVE [address] DRAINING MOSTLY SEROUS FLUID. ABDOMEN IS SLIGHTLY DISTENDED BUT SOME BOWEL CONTENTS HAVE STARTED TO COME FROM THE COLOSTOMY. PT IS RESTRAINED BUT IS TOLERATING THIS WELL. PT ON PRECEDEX AT 1.4 MCG HAS PRNS FOR AGITATION. SULLIVAN IS PATENT, SECURE AND DRAINING CLEAR, YELLOW URINE. VSS AT THIS TIME. WILL CONTINUE TO MONITOR.
[2021-12-08 03:34] LABS: BASOPHILS ABSOLUTE AUTO 0.06 K/mm3 (0.00-0.23); BASOPHILS PERCENT AUTO 0 % (0-2); EOSINOPHILS ABSOLUTE AUTO 0.34 K/mm3 (0.00-0.68); EOSINOPHILS PERCENT AUTO 2 % (0-6); Hematocrit 35.4 % (37.0-53.0); Hemoglobin 12.2 g/dL (13.5-17.5); IMMATURE GRAN ABSOLUTE AUTO 0.18 K/mm3 (0.00-0.10); IMMATURE GRAN PERCENT AUTO 1 % (0-1); LYMPHOCYTES ABSOLUTE AUTO 1.23 K/mm3 (0.84-5.20); LYMPHOCYTES PERCENT AUTO 9 % (21-46); MONOCYTES ABSOLUTE AUTO 1.22 K/mm3 (0.16-1.47); MONOCYTES PERCENT AUTO 9 % (4-13); Mean Corpuscular HGB Conc 34.5 g/dL (31.5-36.5); Mean Corpuscular Volume 84 fL (80-100); Mean Platelet Volume 9.3 fL (9.1-12.4); NEUTROPHILS ABSOLUTE AUTO 11.12 K/mm3 (1.96-9.15); NEUTROPHILS PERCENT AUTO 79 % (41-73); Platelet Count 430 K/mm3 (150-400); RDW Coefficient Variation 15.4 % (11.7-14.2); RDW Standard Deviation 47.7 fL (35.1-46.3); Red Blood Cell Count 4.21 M/mm3 (4.30-5.90); White Blood Cell Count 14.15 K/mm3 (4.00-11.30)
[2021-12-08 03:50] LABS: Magnesium, Blood 2.5 mg/dL (1.6-2.4)
[2021-12-08 03:51] LABS: Albumin, Blood 1.6 g/dL (3.4-5.0); Anion Gap 6 mmol/L (6-16); Blood Urea Nitrogen 19 mg/dL (8-24); Bun/Creatinine Ratio 20.3 (12.0-20.0); CO2, Blood 29 mmol/L (21-32); Calcium, Blood 8.2 mg/dL (8.5-10.1); Chloride, Blood 107 mmol/L (98-108); Creatinine, Blood 0.94 mg/dL (0.60-1.20); Glomerular Filtration Rate 98 (60-); Glucose, Blood 143 mg/dL (70-99); Phosphorus, Blood 4.6 mg/dL (2.5-4.9); Potassium, Blood 3.2 mmol/L (3.5-5.5); Sodium, Blood 142 mmol/L (136-145)
--- NOTE | 2021-12-08 06:02 | NUR ---
SHIFT SUMMARY PT HAS RESTED MOST OF THE NIGHT ON PRECEDEX AT 1.4 MCG. PT HAS REQUIRED INTERMITTENT PRN MEDS FOR PAIN AND AGITATION, BUT VITALS HAVE REMAINED STABLE THROUGHOUT THE NIGHT. PT WAS AFEBRILE MOST OF THE NIGHT. PT STILL HAS A NG TO LWS DRAINING GREEN CONTENTS. SULLIVAN IS SECURE AND PATENT. URINE OUTPUT HAS BEEN ADEQUATE FOR THE NIGHT. PT RECEIVING NUTRITION VIA PPN ADMINISTERED IV. SMALL AMOUNT OF DARK BROWN DRAINAGE NOTES IN COLOSTOMY BAG. IRA DRAINS EMPTIED OF MOSTLY SEROUS FLUID. OUTPUT CHARTED. K+ WAS NOTED TO BE LOW THIS MORNING. 40 MEQ K+ ORDERED PER DR. WRIGHT. REPORT TO BE GIVEN TO DAYSHIFT NURSE WHEN AVAILABLE.
--- NOTE | 2021-12-08 08:38 | NUR ---
CARE OF PT ASSUMED AT 0700. PT VERY RESTLESS IN BED, CONFUSED. PRECEDEX IS AT 1.4MCG; PT PULLING ON RESTRAINTS, NG BECAME LOOSE AND NEEDED TO BE RE-TAPED. ATIVAN 2MG IV GIVEN. K+ RIDER STARTED. HYPOACTIVE BT'S TO LEFT QUAD, SCANT AMT OF STOOL TO COLOSTOMY, SCANT SS DRAINAGE TO IRA X2. MIDLINE DRSG INTACT. PT NOW HYPERTENSIVE. SATS 97% ON 11L VIA HIGH FLOW N/C. TEMP IS DOWN AT 99.2. PT STILL HAS WET COUGH. PT'S CALLED AND GIVEN UPDATE THIS MORNING.
--- NOTE | 2021-12-08 10:56 | NUR ---
DR ORDONEZ IN TO SEE PT. ORDERS TO REPEAT FLEETS VIA STOMA W PAPI MARISCAL CATH. IRA DRAIN MIGHT BE REMOVED TOMORROW. DR CASTRO IN TO SEE PT. FULL UPDATE GIVEN. LASIX RESTARTED. PT AGITATED AND CRYING OUT "HURTS". DILAUDID GIVEN FOR PAIN.
--- NOTE | 2021-12-08 13:13 | NUR ---
FLEETS ENEMA GIVEN; SMALL AMT OF STOOL BACK. O2 TITRATED DOWN TO 8L, SATS 100%. PT DID REQUIRE NT SUCTIONING; KARIN WELL. LARGE AMTS OF THICK YELLOW SPUTUM SUCTIONED. MUCOMYST UDN ORDERED. WILL CONT TO ENCOURAGE COUGHING.
--- NOTE | 2021-12-08 16:35 | NUR ---
PT GIVEN MUCOMYST UDN BY RT. COPIOUS AMT OF THICK WHITE/YELLOW SPUTUM SUCTIONED, PT ALSO REQUIRED NT SUCTION HE WAS UNABLE TO CLEAR HIS OWN AIRWAY AND SATS BEGAN TO DIP INTO 80'S. PT'S AT BEDSIDE.
--- NOTE | 2021-12-08 21:14 | NUR ---
pT AGITATED THIS EVENING CALLING OUT DEMANDING WHISKEY AND TO LEAVE. HE THINKS HE IS IN AN AMBULANCE AND WANTS TO GO HOME. PT KEEPS TRAYING TO PULL OUT TUBES RESTRAINTS INPLACE FOR PT SAFETY AND TO MAINTAIN ESSENTIAL TUBES AND IV'S. HAD TO ENT SUCTION PT GOT COPIOUS AMOUNTS OF THICK WHITE MUCOUS. PT IS CONSTANTLY MOVING FROM SIDE TO SIDE IN BED. CIWA CONSISTENTLY GREATER THAN 20. PT HAS PRECEDEX AT 1.4 RUNNING IN ADDITION TO PRN LIBRIUM AND ATIVAN GIVEN PER CIWA PROTOCOLS. WILL CONTINUE TO MONITOR AT THIS TIME.
--- NOTE | 2021-12-08 23:32 | NUR ---
PT CONTINUES TO BE RESTLESS IN BED. PT SHIFTS SELF BACK AND FORTH FROM SIDE TO SIDE. PUTS FEET OVER SIDE RAILS. KICKS OUT PILLOWS USED TO FLOAT HEELS AND PULLS OUT PILLOWS UNDER ARMS AND PUSHES THEM ONTO THE FLOOR. MEDICATING PER CIWA PROTOCOL WITH ATIVAN AND LIBRIUM IN ADDITION TO CONTINOUS PRECEDEX GTT.
[2021-12-09 01:27] LABS: Vancomycin, Trough 21.3 ug/mL (5.0-10.0)
--- NOTE | 2021-12-09 02:46 | NUR ---
PT YELLING OUT "HELP" AND WHEN RN ENTERED ROOM PT KEPT YELLING HE WAS GOING TO "SHANK YOU". PT KEPT KICKING LEGS AND KICKING PILLOWS OFF THE BED. PT GRABBED SULLIVAN AND TRIED TO PULL IT OUT WITH BILAT SOFT RESTRAINTS IN PLACE. ADMINISTERED LIBRIUM PER CIWA ORDERS.
[2021-12-09 03:36] LABS: BASOPHILS ABSOLUTE AUTO 0.04 K/mm3 (0.00-0.23); BASOPHILS PERCENT AUTO 0 % (0-2); EOSINOPHILS PERCENT AUTO 2 % (0-6); Hematocrit 35.6 % (37.0-53.0); IMMATURE GRAN PERCENT AUTO 1 % (0-1); LYMPHOCYTES ABSOLUTE AUTO 1.27 K/mm3 (0.84-5.20); LYMPHOCYTES PERCENT AUTO 10 % (21-46); MONOCYTES PERCENT AUTO 8 % (4-13); Mean Corpuscular HGB 28.5 pg (26.0-34.0); Mean Corpuscular HGB Conc 33.7 g/dL (31.5-36.5); Mean Corpuscular Volume 85 fL (80-100); Mean Platelet Volume 9.1 fL (9.1-12.4); NEUTROPHILS PERCENT AUTO 79 % (41-73); Platelet Count 503 K/mm3 (150-400); RDW Coefficient Variation 15.4 % (11.7-14.2); RDW Standard Deviation 47.6 fL (35.1-46.3); Red Blood Cell Count 4.21 M/mm3 (4.30-5.90); White Blood Cell Count 12.61 K/mm3 (4.00-11.30)
[2021-12-09 03:52] LABS: Albumin, Blood 1.6 g/dL (3.4-5.0); Albumin/Globulin Ratio 0.3 (0.8-1.8); Bilirubin, Total 0.4 mg/dL (0.1-1.0); Bun/Creatinine Ratio 23.6 (12.0-20.0); Calcium, Blood 8.5 mg/dL (8.5-10.1); Creatinine, Blood 0.89 mg/dL (0.60-1.20); Globulin, Blood 4.6 g/dL (2.2-4.0); Magnesium, Blood 2.5 mg/dL (1.6-2.4); Phosphorus, Blood 3.7 mg/dL (2.5-4.9); Potassium, Blood 3.2 mmol/L (3.5-5.5); Total Protein, Blood 6.2 g/dL (6.4-8.2)
--- NOTE | 2021-12-09 06:07 | NUR ---
PT STARTED YELLING LOUDLY HELLO HELP ME. RN ENTERED ROOM PT KICKING OFF PILLOWS TRYING TO PULL LINES AND SULLIVAN. TALKING NONSENSICAL NOT REDIRECTABLE. GAVE ATIVAN PER CIWA ORDERS. WILL MONITOR.
--- NOTE | 2021-12-09 06:08 | NUR ---
END OF SHIFT SUMMARY PT CIWA SCORES REMAINED 25 THROUGHOUT THE NIGHT. PT WILL BE LAYING STILL AND THEN START YELLING AND KICKING LEGS AND TRYING TO PULL OUT LINES AND WAS NOT REDIRECTABLE. HAD TO GIVE FREQUENT DOSES OF ATIVAN PER CIWA ORDERS IN ADDITION TO LIBRIUM DOSES WELL. BOTH WOULD SEEM TO LAST ROUGHLY 1.5-2 HOURS BEFORE PT WAS AGITATED AGAIN. PT ALSO HAS PRECEDEX AT 1.4 INFUSING WELL. PT HAS NG TUBE IN RIGHT NARE. PT REQUIRING 13-15 L O2 THROUGH HIGH FLOW NC TO MAINTAIN SATS. PT FREQUENTLY SUCTIONED THROUGHOUT THE NIGHT WITH LARGE AMOUNTS OF THICK WHITE SPUTUM. PT MOVES AROUND CONSTANTLY IN BED AND THROWS PILLOWS OFF THE BED AND ATTEMPTS TO GET A HOLD OF AND PULL OUT LINES. WILL GIVE REPORT TO ONCOMING RN.
--- NOTE | 2021-12-09 07:21 | NUR ---
TOOK OVER CARE OF PT AT 0700. PT ON 1.4 OF PRECEDEX GTT, 12L HFNC.
--- NOTE | 2021-12-09 17:16 | NUR ---
SUMMARY NEURO: PT MORE COOPERATIVE THE DAY PROGRESSES. ORIENTED TO SELF, AND ORIENTED TO CITY X1. REORIENTED. PT WAS EXPERIENCING HALLUCINATIONS AND DELUSIONS AT BEGINNING OF SHIFT AND WOULD OSCILLATE BETWEEN IMPULSIVE AND LETHARGIC. THE LAST FEW HOURSE PT HAS STOPPED HALLUCINATING EVERYTIME HE WAKES UP BUT IS STILL ANXIOUS. PT MOVES ALL EXTREMETIES WITH EQUAL STRENGTH. PUPILS ARE NOW AT A 2 AND ARE NOW ABLE TO ASSESS BRISK CONSTRICTION. PT BEGAN THE SHIFT NEEDING 2MG ATIVAN Q2 AND HAS SINCE DECREASED TO 1MG Q2-3. CARDIAC: PT HAS BEEN IN NSR, WITH A SHORT PERIOD OF TACHYCARDIA UP TO 105. PT HAS BEEN RANGING BETWEEN 80-95 MOSTLY. BP'S HAVE RANGED FROM A SYSTOLIC OF 105-150'S. FAINT PULSES IN ALL EXTREMETIES. PALE APPEARANCE TO BLE. DUSKY APPEARANCE IN PT'S FACE. LUNGS: DIMINISHED THROUGHOUT. PT IS TACHPNEIC AND TAKING SHALLOW BREATHS. PT HAS BEEN UNABLE TO PARTICIPATE WITH A FLUTTER VALVE OR INCENTIVE SPIROMETER. PT IS CURRENTLY ON 8 L HFNC. A NASAL TRUMPET WAS PLACED AT THE BEGINNING OF THE SHIFT AND WAS USED TO FACILITATE DEEP NT SUCTIONING. A REPEAT SPUTUM SAMPLE WAS SENT- VERIFIED WITH LAB TO CONTINUE CULTURE EVEN THOUGH SAMPLE IS PRESUMED INADEQUATE. LARGE MUCOUSE PLUGS SUCTIONED THROUGHOUT THEW DAY OF CLEAR/YELLOW FROTHY CHARACTER. PT'S ORAL CAVITY IS DRY, EVEN AFTER APPLYING MOISTURIZER REPEATEDLY AND SMALL BLEEDING LACERATIONS NOTED. GI: PT'S MIDLINE INCISION WAS CHANGED WITH DR. ORDONEZ AT BEDSIDE. IODINE AND SURE PREP WAS USED PRIOR TO PLACING A [place] DRESSING. DRESSING DATED. NO DRAINAGE NOTED. LOOSE STAPLE WAS REMOVED BY . EDGES WERE APPROXIMATED AND NO REDNESS NOTED ALONG INCISION. IRA DRAINS WERE REMOVED BR , SEROUS FLUID HAS BEEN DRAINING ONTO THE DRESSINGS AND CHANGED NEEDED. PT HAS AN NG TO LIWS THAT HAS EMPTIED 450ML OF BROWN/GREEN FLUID. BOWELS SOUNDS WERE ABSENT AT 0800, PT WAS GIVEN 5MG OF REGLAN. PT NOW HAS ACTIVE BOWEL SOUNDS IN RUQ, HYPOACTIVE IN LUQ AND ABSENT BILAT LOWER QUADRANTS. SLIGHT DISTENTION NOTED IN THE RUQ/LIVER AREA. STOMA IS AN ODD LIN/PALE PINK COLOR AND HAS A LEATHERY TEXTURE- DR. ORDONEZ MADE AWARE. COLOSTOMY IS DRAINING LIGHT BROWN WATER, WITH SOME MUCOUS SHREDS. NO LEAK NOTED AROUND STOMA APPLIANCE. COLOSTOMY BAG WAS EMPTIED AT 0800 WITH 10ML, THEN AGAIN AT 1200 WITH 2.5ML, NO OUTPUT AT 1600. DR. ORDONEZ STATED TO POSSIBLE START TRICKLE FEEDS AFTER SIGNS OF GAS OR INCREASED OUTPUT FROM COLOSTOMY AND TO CONTACT OVER THE WEEKEND. : SULLIVAN IN PLACE, DRAINING BELOW LEVEL OF BLADDER. SULLIVAN CARE COMPLETED. SKIN: CLAMMY, DUSKY APPEARANCE. PT'S HAD 40MEQ OF POTASSIUM REPLACED SINCE AM LAB DRAW. PT'S NEW CPN BAG ALSO HAS 60MEQ OF POTASSIUM.
--- NOTE | 2021-12-09 18:07 | NUR ---
Review of patient decline with bus inspector. Review of patient on rounds with team. Called to have a careful conversationabout future care needs and code status. has a lot of family support through social media and texting. She does not have a lot of local support. Their son arriver today with his family so that has helped. is having great stress in that she was supposed to start a promotion this week and could not take the pormotion due to his illness. Her employer stepped up and gave her the opportunity to work remotely during her husbands time of need. She wants to be with her but he has had bouts of aggitation when she is present. She feels this makes him worse. she is struggling because he was not complaing of any pain until just before the event. We discussed his new cancer diagnosis and prognosis. We discussed that if he does not improve may not be able to tolerate and oncology care. She reviewed some of her and Dr. Noel conversation and preparing for decline. She is starting to process his cancer diagnosis. we discussed that he could end back up on the ventilator. She knows that may be futile, she relays a serious discussion they had about his congregational eliu and his desire to fithe to the . He made her promise to give him everything she promised whe will honor his wishes. Advised we will give him full respect and help her through this process. We will follow up.
--- NOTE | 2021-12-09 20:07 | NUR ---
WENT IN TO DO AN ASSESSMENT PT AWAKE WITH BOTH EYES OPENED. PT KNEW NAME, DATE OF , HE KNEW HE WAS IN THE HOSPITAL AND HE HAD CANCER, HE WAS ABLE TO STATE THE YEAR, THE CITY, AND THE STATE HE WAS IN. PT WANTED TO SEE HIS . HE TOLD RN HE WANTS THE AGAINST MEDICAL ADVICE PAPERWORK THAT HE WAS LEAVING AND GOING TO ANOTHER HOSPITAL. SPOKE WITH [employer] INSTRUCTORAMI PLASENCIA AND WITH DR. RUTHERFORD BOTH AGREED TO HAVE FAMILY COME IN AND TO TALK WITH PT. DR. RUTHERFORD GAVE VERBAL ORDER TO SHUT OFF PRECEDEX AT THIS TIME IT WAS ON AT 0.6. AND STEP SON ARE NOW AT BEDSIDE TALKING WITH PT. HE IS CALMING DOWN IS GETTING HIM REDIRECTED. WILL MONITOR. PT DID COUGH AND RN SUCTIONED LARGE AMOUNT OF THICK WHITE SPUTUM.
--- NOTE | 2021-12-09 22:02 | NUR ---
PT ALERT AND ORIENTED FOLLOWING ALL COMMANDS AND NO LONGER ATTEMPTING TO PULL LINES. IS STAYING WITH PT THROUGH THE NIGHT TO HELP KEEP HIM CALM. RESTRAINTS DISCONTINUED AT THIS TIME.
[2021-12-10 03:28] LABS: BASOPHILS ABSOLUTE AUTO 0.06 K/mm3 (0.00-0.23); BASOPHILS PERCENT AUTO 0 % (0-2); EOSINOPHILS ABSOLUTE AUTO 0.17 K/mm3 (0.00-0.68); EOSINOPHILS PERCENT AUTO 1 % (0-6); Hemoglobin 12.2 g/dL (13.5-17.5); IMMATURE GRAN ABSOLUTE AUTO 0.12 K/mm3 (0.00-0.10); IMMATURE GRAN PERCENT AUTO 1 % (0-1); LYMPHOCYTES ABSOLUTE AUTO 1.88 K/mm3 (0.84-5.20); LYMPHOCYTES PERCENT AUTO 13 % (21-46); MONOCYTES PERCENT AUTO 8 % (4-13); Mean Corpuscular HGB 28.3 pg (26.0-34.0); Mean Corpuscular Volume 86 fL (80-100); Mean Platelet Volume 9.2 fL (9.1-12.4); NEUTROPHILS ABSOLUTE AUTO 10.99 K/mm3 (1.96-9.15); NEUTROPHILS PERCENT AUTO 77 % (41-73); Platelet Count 542 K/mm3 (150-400); RDW Coefficient Variation 15.5 % (11.7-14.2); Red Blood Cell Count 4.31 M/mm3 (4.30-5.90); White Blood Cell Count 14.32 K/mm3 (4.00-11.30)
[2021-12-10 03:53] LABS: Anion Gap 6 mmol/L (6-16); Blood Urea Nitrogen 23 mg/dL (8-24); Bun/Creatinine Ratio 22.5 (12.0-20.0); CO2, Blood 27 mmol/L (21-32); Calcium, Blood 8.8 mg/dL (8.5-10.1); Chloride, Blood 113 mmol/L (98-108); Creatinine, Blood 1.02 mg/dL (0.60-1.20); Glomerular Filtration Rate 88 (60-); Glucose, Blood 119 mg/dL (70-99); Magnesium, Blood 2.4 mg/dL (1.6-2.4); Phosphorus, Blood 4.2 mg/dL (2.5-4.9); Potassium, Blood 3.3 mmol/L (3.5-5.5); Sodium, Blood 146 mmol/L (136-145); Vancomycin, Trough 19.2 ug/mL (5.0-10.0)
--- NOTE | 2021-12-10 03:56 | NUR ---
PT GOT ANXIOUS WAS HAVING PAIN AND TRYING TO CRAWL OUT OF BED. GAVE ATIVAN AND HYDROMORPHONE. HR INCREASED TO 133 WIHT REPOSITIONED.
--- NOTE | 2021-12-10 06:01 | NUR ---
PT OFF PRECEDEX FOLLOWING COMMANDS AND ORIENTED. STAYED AT BEDSIDE THROUGH THE NIGHT. PT OUT OF RESTRAINTS DOES NOT ATTEMPT TO PULL LINES AND IS SAYING PLEASE AND THANK YOU. POTASSIUM WAS 3.[address] SEE MAR. PPN INCREASED TO GOAL RATE OF 75ML/HR. HAD LARGE STOOL FROM COLOSTOMY ABOUT 600 MLS OF DARK BROWN LIQUID STOOL. STILL GETTING A LOT OF MUCOUS WITH SUCTIONING. REMAINS ON 8 LITERS O2 VIA HFNC. PT HR INCREASED AFTER MUCOMIST TX REMAINS BETWEEN 100-120. WILL GIVE REPORT TO ONCOMING RN.
--- NOTE | 2021-12-10 07:51 | NUR ---
TOOK OVER CARE OF PT AT 0700, PT RESTING ON 14L HFNC
--- NOTE | 2021-12-10 13:29 | NUR ---
PT DESATTING INTO HIGH 70'S, RESPIRATORY NOTIFIED, UNRESOLVED WITH REPOSITIONING, NT SUCTIONING AND INCREASING O2 SUPPLY. PT THEN PLACED ON BIPAP. NOTIFIED, PT'S NOTIFIED. THEN BEGAN SETTING UP FOR INTUBATION. 1245 HASEEBTA TO ROOM 1249 20 OF ETOMIDATE 1250 ETT 8.0 26 AT LIP PROPOFOL GTT STARTED AND TITRATED 1251 2MG VERSED PUSH 1258 50MCG OF FENTANYL 1301 2MG ATIVAN PUSH CXR COMPLETED. PT VENTED ON ACVC 16/450/7/100%
[2021-12-10 14:23] LABS: Hematocrit 37.9 % (37.0-53.0); Hemoglobin 12.2 g/dL (13.5-17.5)
--- NOTE | 2021-12-10 19:09 | NUR ---
SUMMARY NEURO: PT INTUBATED/SEDATED. CARDIAC: PT HAS BEEN TACHY ALL SHIT 120'S-140'S. PO METOPROLOL RESTARTED. 5MG IV METOPROLOL GIVEN WITH EFFECT. PT LATER BOLUSED WO WITH 1L LR. EKG COMPLETED, H&H CHECKED AND STABLE, POTASSIUM LAB DRAWN AND REPLACEMENT ORDERED. PRN ATIVAN GIVEN. GI: DARK BROWN/GREEN FORMED OUTPUT FROM COLOSTOMY. TRICKLE RATE OF 10ML TUBE FEEDS RESTARTED AFTER INTUBATION. MIDLINE DRESSING CDI. : SULLIVAN IN PLACE AND DRAINING BELOW THE BLADDER. LUNGS: PT INTUBATED ON ACVC 16/450/7/50%. SEDATED WITH 50MCG OF PROPOFOL. LARGE MUCOUS PLUG COUGHED UP TODAY, FOLLOWED BY LARGE AMOUNTS OF SECRETIONS. LUNGS SOUNDS NOW PRESENT IN THE RIGHT UPPER LOBE.
--- NOTE | 2021-12-11 00:41 | NUR ---
PT GIVEN BED BATH ALL TURN SHEETS AND PILLOW CASES CHANGED. ORAL CARE PERFORMED AND ET TUBE MOVED TO THE LEFT. FIO2 DECREASED TO 30 % sats at 97% will monitor.
--- NOTE | 2021-12-11 02:02 | NUR ---
pt sats kept dropping to 90% increased fio2 back to 35%
[2021-12-11 04:01] LABS: BASOPHILS ABSOLUTE AUTO 0.07 K/mm3 (0.00-0.23); BASOPHILS PERCENT AUTO 1 % (0-2); EOSINOPHILS ABSOLUTE AUTO 0.28 K/mm3 (0.00-0.68); EOSINOPHILS PERCENT AUTO 2 % (0-6); Hematocrit 33.7 % (37.0-53.0); IMMATURE GRAN ABSOLUTE AUTO 0.11 K/mm3 (0.00-0.10); IMMATURE GRAN PERCENT AUTO 1 % (0-1); LYMPHOCYTES ABSOLUTE AUTO 1.41 K/mm3 (0.84-5.20); LYMPHOCYTES PERCENT AUTO 10 % (21-46); MONOCYTES ABSOLUTE AUTO 1.05 K/mm3 (0.16-1.47); MONOCYTES PERCENT AUTO 7 % (4-13); Mean Corpuscular HGB 28.6 pg (26.0-34.0); Mean Corpuscular HGB Conc 32.6 g/dL (31.5-36.5); Mean Corpuscular Volume 88 fL (80-100); Mean Platelet Volume 9.5 fL (9.1-12.4); NEUTROPHILS ABSOLUTE AUTO 11.34 K/mm3 (1.96-9.15); NEUTROPHILS PERCENT AUTO 79 % (41-73); Platelet Count 536 K/mm3 (150-400); RDW Standard Deviation 51.7 fL (35.1-46.3); Red Blood Cell Count 3.84 M/mm3 (4.30-5.90); White Blood Cell Count 14.26 K/mm3 (4.00-11.30)
[2021-12-11 04:18] LABS: Magnesium, Blood 2.5 mg/dL (1.6-2.4)
[2021-12-11 04:24] LABS: Alanine Aminotransfer (ALT/SGP 18 U/L (12-78); Albumin, Blood 1.8 g/dL (3.4-5.0); Albumin/Globulin Ratio 0.4 (0.8-1.8); Alk Phos 158 U/L (50-136); Anion Gap 6 mmol/L (6-16); Aspartate Aminotrans (AST/SGOT 21 U/L (12-37); Bilirubin, Total 0.3 mg/dL (0.1-1.0); Blood Urea Nitrogen 30 mg/dL (8-24); CO2, Blood 27 mmol/L (21-32); Calcium, Blood 8.8 mg/dL (8.5-10.1); Chloride, Blood 113 mmol/L (98-108); Creatinine, Blood 1.25 mg/dL (0.60-1.20); Globulin, Blood 4.5 g/dL (2.2-4.0); Glomerular Filtration Rate 69 (60-); Glucose, Blood 138 mg/dL (70-99); Phosphorus, Blood 3.2 mg/dL (2.5-4.9); Potassium, Blood 3.6 mmol/L (3.5-5.5); Sodium, Blood 146 mmol/L (136-145); Total Protein, Blood 6.3 g/dL (6.4-8.2); Vancomycin, Trough 21.3 ug/mL (5.0-10.0)
--- NOTE | 2021-12-11 06:17 | NUR ---
NO ACUTE CHANGES OVER NIGHT. PT ON PEEP OF 7 FIO2 OF 35% SATS REMAINING IN MID 90'S. HR 100-120 ST. BP STABLE. COLOSTOMY HAD ABOUT [address] TREVOR KATE PT BEDSIDE THIS AM GAVE VERBAL TO INCREASE TF TO 20 ML/HR. RESIDUALS HAVE BEEN LOW THROUGHOUT THE NIGHT. PT DOES HAVE A LOT OF ORAL SECRETIONS REQUIRING FREQUENT SUCTIONING. WILL GIVE REPORT TO ONCOMING RN.
--- NOTE | 2021-12-11 07:23 | NUR ---
TOOK OVER CARE OF PT AT 0700. PT VENTED ON ACVC 450/16/7/35%, PROPOFOL AT 50MCG.
--- NOTE | 2021-12-11 16:40 | NUR ---
SUMMARY PT INTUBATED ON ACVC 16/450/5/30%, SEDATED WITH 35MCG OF PROPOFOL NEURO: PT'S SEDATION WAS PAUSED FOR APPROXIMATELY 20 MINUTES THIS MORNING BEFORE PT WAS ABLE TO WEAKLY FOLLOW COMMANDS AND ONLY AFTER STERNAL RUBS. PT'S SEDATION WAS OFF UNTIL ABOUT 1030 BEFORE THE PT'S PUPILS DILATED TO A THREE AND BECAME ALERT ENOUGH TO FOLLOW COMMANDS WITHOUT PRESSURE. PT WAS FOLLOWING COMMANDS WITH EQUAL STRENGTH IN ALL EXTREMETIES BUT STILL WEAK AND LETHARGIC. SEDATION RESTARTED DUE TO PT COUGHING. CARDIAC: PT'S HEART RATE HAS BEEN 90'S-120'S, INCREASING THE DAY PROGRESSED. PO METOPROLOL INCREASED. LUNGS: COPIOUS AMOUNTS OF CLEAR SECRETIONS FROM ETT, SOME STREAKS OF BLOOD WHEN ORAL. COURSE BILAT UPPER LOBES, DIMINISHED BILAT LOWER LOBES. GI: MIDLINE DRESSING CDI, COLOSTOMY STILL PRODUCING DARK BROWN LIQUID OUTPUT, LOW/NO RESIDUALS OF TUBE FEEDS. CPN STOPPED. : URINE IS GREEN, NOTIFIED. PT ON LOWEST TOLERATING DOSE OF PROPOFOL AND CPN STOPPED. SULLIVAN IN PLACE WITH BAG BELOW BLADDER. SUCTIONING
[2021-12-12 04:24] LABS: BASOPHILS ABSOLUTE AUTO 0.06 K/mm3 (0.00-0.23); BASOPHILS PERCENT AUTO 1 % (0-2); EOSINOPHILS ABSOLUTE AUTO 0.33 K/mm3 (0.00-0.68); EOSINOPHILS PERCENT AUTO 3 % (0-6); Hematocrit 33.3 % (37.0-53.0); Hemoglobin 10.8 g/dL (13.5-17.5); IMMATURE GRAN ABSOLUTE AUTO 0.14 K/mm3 (0.00-0.10); IMMATURE GRAN PERCENT AUTO 1 % (0-1); LYMPHOCYTES ABSOLUTE AUTO 1.61 K/mm3 (0.84-5.20); LYMPHOCYTES PERCENT AUTO 12 % (21-46); MONOCYTES ABSOLUTE AUTO 1.21 K/mm3 (0.16-1.47); MONOCYTES PERCENT AUTO 9 % (4-13); Mean Corpuscular HGB 28.3 pg (26.0-34.0); Mean Corpuscular HGB Conc 32.4 g/dL (31.5-36.5); Mean Corpuscular Volume 87 fL (80-100); NEUTROPHILS ABSOLUTE AUTO 9.89 K/mm3 (1.96-9.15); NEUTROPHILS PERCENT AUTO 75 % (41-73); Platelet Count 534 K/mm3 (150-400); RDW Coefficient Variation 16.2 % (11.7-14.2); RDW Standard Deviation 52.1 fL (35.1-46.3); Red Blood Cell Count 3.81 M/mm3 (4.30-5.90); White Blood Cell Count 13.24 K/mm3 (4.00-11.30)
[2021-12-12 04:36] LABS: Bun/Creatinine Ratio 19.5 (12.0-20.0); Creatinine, Blood 1.13 mg/dL (0.60-1.20); Magnesium, Blood 2.7 mg/dL (1.6-2.4); Phosphorus, Blood 4.1 mg/dL (2.5-4.9)
--- NOTE | 2021-12-12 05:33 | NUR ---
NO ACUTE CHANGES OVERNIGHT.PT REMAINED INTUBATED AND SEDATED THROUGHOUT SHIFT. WANTS TO BE PRESENT FOR SBT. SHE IS IN THE ROOM WITH DOCTOR IS READY. SPOKE WITH LUIS ANGEL FILLING MACHINE SET UP MECHANIC AND DOCTOR COMING ON FOR DAY SHIFT LIKES TO BE PRESENT FOR SBT. PT ON 35 OF PROPOFOL. WILL GIVE REPORT TO ONCOMING RN.
--- NOTE | 2021-12-12 08:00 | NUR ---
PT REMAINS INTUBATED, SEDATED, AND RESTRAINED. PT SEDATED ON PROPOFOL @ 35 MCG/KG/MIN. PT OPENS EYES WITH PAINFUL STIMULI-RESTS QUIETLY WHEN NOT DISTURBED. ECG SHOWS SR WITH RATE 90'S. PT IS AFEBRILE. BP STABLE. LUNGS COARSE L>R AND DIMINISHED IN THE BASES. ETT WITH FEW, THICK, WHITE SECRETIONS. VENT: AC 16, TV 450, PEEP 5, FIO2 35% SATS>90%. ANTICIPATE WEANING TRIAL DURING DR. SANCHEZ ROUNDS TODAY. ABDOMEN IS SOFT WITH BT'S X 4. MIDLINE DRESSING C/D/I. COLOSTOMY WITH SMALL AMOUNT OF DARK, BROWN LIQUID STOOL. OSTOMY STOMA SLIGHTLY DUSKY, BUT OVERALL PINK. SULLIVAN TO BSD WITH ADEQUATE AMOUNT OF YELLOW/GREEN URINE TO BSD. HEEL AND ELBOW PROTECTION/FOAM DRESSING C/D/I. PT BOOSTED IN BED AND EXTREMITIES ELEVATED ON PILLOWS. PT SPOUSE AT BEDSIDE-UPDATED TO CURRENT STATUS AND PLAN OF CARE.
--- NOTE | 2021-12-12 10:45 | NUR ---
DR. SANCHEZ IN TO SEE PT. FULL UPDATE GIVEN. PROPOFOL DRIP DECREASED TO 17 MCG/KG/MIN. PT PLACED ON PS 12, FIO2 30%-RR 20, SATS 93%
--- NOTE | 2021-12-12 12:00 | NUR ---
PS TRIAL CONTINUES. SATS>90% PT OPENING EYES TO VOICE AND SHAKES HIS HEAD "NO" WHEN ASKED IF IN PAIN. PRECEDEX DRIP @ 0.6 MCG/KG/MIN AND PROPOFOL @ 17 MCG/KG/MIN. WILL TITRATE PROPOFOL TO OFF TOLERATED.
--- NOTE | 2021-12-12 12:30 | NUR ---
PT RESTING QUIETLY ON VENT WITH PRECEDEX @ 0.7 MCG/KG/MIN. PROPOFOL DRIP OFF. SATS>90% STILL ON PS 12/FIO2 30%
--- NOTE | 2021-12-12 15:00 | NUR ---
DR. SANCHEZ IN TO SEE PT. UPDATE GIVEN. ORDER GIVEN TO INCREASE PRECEDEX TO 1.4 MCG/KG/MIN-TITRATE PROPOFOL DOWN TOLERATED. INCREASED PRECEDEX TO 1.4 MCG/KG/MIN AND TITRATED PROPOFOL DOWN TO 15 MCG/KG/MIN.
--- NOTE | 2021-12-12 16:00 | NUR ---
PT RESTING QUIETLY ON PRECEDEX @ 1.4 MCG/KG/MIN AND PROPOFOL @ 15 MCG/KG/MIN. CONTINUES ON PS 12, FIO2 30%-SATS>90%. ECG SHOWS SR WITH RATE 70'S. SBP 120'S. PT TOLERATING NGTF @ 30 CC/HR WITHOUT DIFFICULTY. ABDOMINAL DRESSING REMAINS C/D/I. COLOSTOMY CONTINUES TO DRAIN MODERATE AMOUNT OF BROWN/GREEN STOOL. SULLIVAN TO BSD WITH ADEQUATE AMOUNT OF GREEN URINE TO UROMETER.
--- NOTE | 2021-12-12 17:09 | NUR ---
INTAKE 527 VS. 1150 OUT THIS SHIFT.
[2021-12-13 04:43] LABS: Hematocrit 36.4 % (37.0-53.0); Hemoglobin 11.4 g/dL (13.5-17.5); Mean Corpuscular HGB 27.9 pg (26.0-34.0); Mean Corpuscular HGB Conc 31.3 g/dL (31.5-36.5); Mean Corpuscular Volume 89 fL (80-100); Mean Platelet Volume 9.7 fL (9.1-12.4); Platelet Count 554 K/mm3 (150-400); RDW Standard Deviation 52.5 fL (35.1-46.3); Red Blood Cell Count 4.09 M/mm3 (4.30-5.90); White Blood Cell Count 12.63 K/mm3 (4.00-11.30)
[2021-12-13 05:03] LABS: Magnesium, Blood 2.8 mg/dL (1.6-2.4)
[2021-12-13 05:08] LABS: Anion Gap 6 mmol/L (6-16); Blood Urea Nitrogen 20 mg/dL (8-24); CO2, Blood 24 mmol/L (21-32); Calcium, Blood 8.9 mg/dL (8.5-10.1); Chloride, Blood 116 mmol/L (98-108); Creatinine, Blood 0.95 mg/dL (0.60-1.20); Glomerular Filtration Rate 96 (60-); Glucose, Blood 129 mg/dL (70-99); Potassium, Blood 3.9 mmol/L (3.5-5.5); Sodium, Blood 146 mmol/L (136-145); Triglycerides 159 mg/dL (30-160)
--- NOTE | 2021-12-13 05:43 | NUR ---
NO ACUTE CHANGES OVERNIGHT. PT FOLLOWING COMMANDS NODDING HEAD APPROPRIATELY. WAS ABLE TO LET RN KNOW HE WAS COLD AND HAD PAIN. PT HR DID GO SB AFTER PM DOSE OF METOPROLOL. NOW SR IN 60-70'S. GOT LOW 44 BUT DID NOT SUSTAIN. ONLY 150 MLS OUT OF COLOSTOMY AT THIS TIME. GOT 800 MLS OF URINE FROM SULLIVAN. TF INCREASED TO 40 MLS. GOAL IS 55. RESIDUALS REMAIN LOW. WILL GIVE BEDSIDE REPORT TO ONCOMING RN.
--- NOTE | 2021-12-13 08:00 | NUR ---
PT REMAINS SEDATED, MECHANICALLY VENTILATED, AND RESTRAINED. OPENS EYES TO VOICE AND FOLLOW SIMPLE COMMANDS. PT SHOOK HIS HEAD "YES" WHEN ASKED IF HE WAS IN PAIN-MED WITH DILAUDID 1 MG IVP X 1. PRECEDEX @ 1.4 MCG/KG/MIN AND PROPOFOL @ 15 MCG/KG/MIN. ECG SHOWS SR WITH RATE 70-80'S. SBP 110'S-120'S. NO NOTED EDEMA. LUNGS COARSE TO UPPER LOBES, BUT MINIMAL ETT SECRETIONS. PT REMAINS ON PS VENTILATION. PS DECREASED TO 10 @ 0715. PT MAINTAINS SATS>90% AND TV>450. FIO2 30% ABDOMINAL/MIDLINE DRESSING C/D/I. COLOSTOMY APPLIANCE INTACT WITH SMALL AMOUNT OF GREEN LIQUID STOOL-STOMA SLIGHLTY DUSKY, BUT OVERALL PINK. ABDOMEN IN SOFT. NGTF PIVOT 1.5 INCREASED TO GOAL RATE OF 55 CC/HR NO RESIDUAL @ RATE OF 40 CC/HR. SULLIVAN TO BSD WITH MODERATE AMOUNT OF GREEN URINE TO UROMETER. PREVENTIVE DRESSINGS INTACT TO ELBOWS AND HEELS.
--- NOTE | 2021-12-13 10:45 | NUR ---
DR. SANCHEZ IN TO SEE PT. UPDATE GIVEN. PT AWAKE AND GESTURING THAT HE WANTS TO WRITE. RIGHT HAND UN-RESTRAINED AND PT ATTEMPTED TO WRITE. HOWEVER, PT JUST SCRIBBLED ON THE PAPER. PT THEN REACHED FOR ETT. RIGHT WRIST PLACED BACK IN RESTRAINT. PT AGITATED AND PULLING ON RESTRAINTS. PT POINTING AT RN, BUT UNABLE TO INDICATE WHAT IT IS THAT HE IS TRYING TO COMMUNICATE. PT SPOUSE AT BEDSIDE. SHE DECIDED TO MOVE TO THE RIGHT SIDE OF THE BED OUT OF PT VIEW SHE FELT THAT SHE WAS AGITATING HIM. PS DECREASED TO 5. DR. SANCHEZ TO RE-EVALUATE PT IN 30 MINUTES AND POSSIBLY LIBERATE FROM VENTILATOR.
--- NOTE | 2021-12-13 11:32 | NUR ---
PT SUCCESSFULLY LIBERATED FROM VENT AND PLACED ON 2 LITERS NASAL CANULA. PT FOLLOWING COMMANDS AND COOPERATIVE WITH CARE AT THIS TIME. PRECEDEX CONTINUES @ 1.4 MCG/KG/MIN. PT VOICE IS HOARSE, BUT HE IS ABLE TO COUGH UP SECRETIONS. SATS>90%.
--- NOTE | 2021-12-13 13:30 | NUR ---
PT REPORTS 7/10 ABDOMINAL PAIN-MED WITH DILAUDID 1 MG IVP-SEE EMAR. REPOSITIONED TO LEFT SIDE-HEELS FLOATED.
--- NOTE | 2021-12-13 13:45 | NUR ---
PT RESTING QUIETLY WITHOUT NOTED DISTRESS. DR. SANCHEZ IN BRIEFLY TO SEE PT. PRECEDEX TITRATED DOWN TO 1.0 MCG/KG/MIN PER VERBAL ORDER DR. SANCHEZ.
--- NOTE | 2021-12-13 14:30 | NUR ---
DR. ORDONEZ IN TO SEE PT. ORAL CARE DONE AND NYSTATIN SWABBED INTO PT MOUTH. PT GIVEN ONE SMALL ICE CHIP PER DR. ORDONEZ VERBAL ORDER. PT HAD DIFFICULTY SWALLOWING AND YANKEUR SUCTION PRODUCTIVE OF A LARGE AMOUNT OF THICK, YELLOW SPUTUM. PT VERY COOPERATIVE WITH CARE- DB AND COUGHING ON COMMAND. PRECEDEX @ 1 MCG/KG/MIN AND NO AGITATION NOTED.
--- NOTE | 2021-12-13 17:58 | NUR ---
DURING 1600 ASSESSMENT, INITIALLY PT AWAKE AND ALERT AND FOLLOWING COMMANDS. PT ABLE TO COUGH AND ALLOWING RN TO YANKEUR SUCTION. SATS >90% ON 2 LITERS NASAL CANULA. HR 90'S SR TO ST. TEMP 101.4. LUNGS VERY COARSE TO UPPER LOBES AND DIMINISHED IN THE BASES. SUDDENLY, PT BECAME VERY AGITATED AND STARTED HALLUCINATING. PT ATTEMPTING TO GET OUT OF BED. PT PULLING ON LINES AND TUBES AND ATTEMPTING HIT AND KICK STAFF. PRECEDEX TITRATED UP TO 1.4 MCG/KG/MIN @ 1620. PT CONTINUED TO BE AGITATED AND STARTED SCREAMING "HELP!" SATS DOWN TO 88%-FIO2 TITRATED UP TO 6 LITERS TO KEEP SATS>90%. DR. SANCHEZ SUMMONED TO BEDSIDE. PT MEDICATED WITH ATIVAN @ 1625. HE RECEIVED A TOTAL OF 4 MG IVP AND WAS STILL AGITATED. SOFT WRIST RESTRAINTS PLACED. PT RESPIRATIONS AUDIBLY MOIST, BUT HE WOULD NO LONGER ALLOW FOR ORAL SUCTIONING. RT AT BEDSIDE. PT MED WITH ZYPREXA 10 MG IM X 1-SEE EMAR. ONCE PT LESS RESTLESS, CXR AND CPT DONE TO RIGHT SIDE. A NASAL TRUMPET WAS INSERTED AND THEN PT NT SUCTIONED FOR A LARGE AMOUNT OF PURULENT SPUTUM. AFTER NT SUCTIONING, SATS 97% AND FIO2 TITRATED DOWN TO 3 LITERS NASAL CANULA. PT JESICA WAS AT THE BEDSIDE DURING THIS EPISODE. DIVYA FROM PALLIATIVE CARE AT BEDSIDE SUPPORTING PT SPOUSE.
--- NOTE | 2021-12-13 18:17 | NUR ---
Met with pt's today, as pt was yelling out. Staff at bedside, and appeared distraught. I asked her how long they've been , her line of work, etc. She appeared to calm with the distraction and told me about her and the pt's marriage in 2006, life in [place] for 14 years, and their new life here in [place]. 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 This is not what I had expected to hear, but I continued to actively listen as she made her way through many thoughts and feelings. She had acknowledged several days ago that pt may not become well enought to participate in chemo. Pt was in soft restraints when I left, as he was hallucinating and attempting to kick at staff and see "policemen with guns". Palliative will continue to working with pt and .
--- NOTE | 2021-12-13 18:30 | NUR ---
PT GIVEN LASIX 40 MG IVP X [address] SANCHEZ ORDERS. PT GRIMACING, MOANING, RESTLESS, AND TENSE-MED WITH DILAUDID 1 MG IVP X 1 SEE EMAR. MED WITH TYLENOL SUPPOSITORY FOR TEMP 101.4.
--- NOTE | 2021-12-13 21:52 | NUR ---
PT GOT AGITATED WITH RT WHILE DOING TREATMENTS WAS YELLING AND KICKING AT STAFF. DIFFICULT TO REDIRECT TOOK SEVERAL MINUTES TO GET HIM TO CALM DOWN. PT NOW CALM AND FOLLOWING COMMANDS AND OPENING EYES. WILL CONTINUE TO MONITOR.
[2021-12-14 06:21] LABS: Magnesium, Blood 2.4 mg/dL (1.6-2.4)
[2021-12-14 06:22] LABS: Bun/Creatinine Ratio 22.1 (12.0-20.0); Calcium, Blood 8.7 mg/dL (8.5-10.1); Creatinine, Blood 1.04 mg/dL (0.60-1.20); Phosphorus, Blood 3.9 mg/dL (2.5-4.9); Potassium, Blood 3.2 mmol/L (3.5-5.5)
--- NOTE | 2021-12-14 06:31 | NUR ---
PT WEANED DOWN TO 0.4 ON PRECEDEX USING IV PUSH ATIVAN AND DILAUDID PRN. ATIVAN APPEARS TO BE WORKING BETTER FOR AGITATION AND ANXIETY THAN PRECEDEX ALONE. CONTINUED SUCTIONING COPIOUS AMOUNTS OF SECRETIONS FROM PT. HE IS NOT ABLE TO COUGH THEM UP AND IS HIGH RISK OF ASPIRATION. MINIMAL OUTPUT FROM COLOSTOMY ONLY 50 CC OVERNIGHT. RESTRAINTS REMAIN IN PLACE PT GETS AGITATED AND CONFUSED AND CAN BE COMBATIVE AND DOES TRY TO PULL OUT LINES. V/S STABLE SATS BETWEEN 90-95% ON 2L NC. WILL CONTINUE TO MONITOR AND GIVE BEDSIDE REPORT TO ONCOMING RN.
--- NOTE | 2021-12-14 07:15 | NUR ---
ASSUMED CARE OF PT @0700. BEDSIDE REPORT GIVEN. PT IS CALM, BUE RESTRAINTS IN PLACE. PRECEDEX INFUSING @0.4MCG/KG/MIN, TWO TKO LINES @5MLS/HR. PICC LINE HOLLY, PERIPHERAL IV SULAIMAN, NASAL TRUMPET IN PLACE, O2 @3 LITERS VIA NASAL CANNULA. ABDOMINAL SURG SITE BANDAGE INTACT AND CLEAN. MODERATE AMOUNT OF DARK BROWN LIQUID STOOL IN COLOSTOMY. SULLIVAN CATH PATENT AND DRAINING TO GRAVITY.
--- NOTE | 2021-12-14 09:23 | NUR ---
SWO JESICA, GAVE UPDATE ON PT CONDITION.
--- NOTE | 2021-12-14 16:34 | NUR ---
T/C with pt's Magalie today. She visited pt earlier today, and decided to spend the rest of the day at home, due to feeling "exhausted and overwhelmed". She states this morning went much better than yesterday for pt. He has not been combative today, and although he was confused, he was calm. Today, she wonders if this phase of confusion will improve and what the future holds if he doesn't. She states she does realize his condition remains guarded. She complimented the staff in all departments they've been in contact with, and states her appreciation for "the excellent ongoing care from the doctors to the housekeepers". Magalie also states she is finally realizing she needs to take care of herself without feeling so much guilt. I reminded her that without first caring for ourselves, we are much less able to care for those we love. She states she needed to hear this today, and plans to stay home for the evening. Plan to check in with her again tomorrow.
--- NOTE | 2021-12-14 19:01 | NUR ---
SUMMARY: NEURO/PSYCH/MOBILITY: PT ALERT AND ORIENTED TO SELF, PLACE, AND FAMILY, FOLLOWS COMMANDS. WORKED W/PT AND OT TODAY. BECAME AGITATED AND DISORIENTED DURING AFTERNOON CARE. SOFT WRIST RESTRAINTS IN PLACE. PRECEDEX 0.4MCG/KG/HOUR. RESP: LUNGS CLEAR W/DIMINISHED BASES. SPO2 >94% ON 3L NC. RR 20. COPIOUS AMOUNTS OF ORAL SECRETIONS THAT REQUIRED MULTIPLE ORAL SUCTIONING THROUGH SHIFT. CARDIAC: CONTINUOUS MONITORING. HR 90-110. SBP 130-140'S. NO EDEMA NOTED. GI: COLOSTOMY BAG IN PLACE. PRODUCING LARGE AMOUNTS OF LIQUID BROWN STOOLS. APPLIANCE CHANGED, STOMA WAS BEEFY RED AND RETRACTED. DR ORDONEZ AWARE. MIDLINE ABDOMINAL INCISION DRESSING CHANGED. DOBHOFF INSERTED AND PIVOT TUBE FEED STARTED AT 25MLS/HR. : SULLIVAN CATH IN PLACE AND DRAINING CLEAR YELLOW URINE TO GRAVITY. SKIN: MEPIPLEX ON L ELBOW. MIDLINE INCISION DRESSING CHANGES PRN. PICC LINE IN HOLLY INFUSING AND PATENT. LUE PERIPHERAL PATENT W/SALINE LOCK.
--- NOTE | 2021-12-14 19:35 | NUR ---
ASSUMPTION OF CARE BEDSIDE REPORT GIVEN. PT NOTED TO BE IN BED, AGITATED, TURNING FROM SIDE TO SIDE. PT SWEATY. PT MADE COMFORTABLE REPOSITIONED IN BED. PT WEARING RESTRAINTS. PT ATTEMPTING TO PULL AT TUBES AND LINES. PT WEARING NASAL CANNULA AND VITALS ARE WNL. PT MADE SAFE BY PUTTING THE BED IN LOW POSITION, HEAD OF BED ELEVATED AND WHEELS LOCKED. PT IS CLOSE TO NURSING STAFF AND IS NOTED TO BE A FALL RISK. CONTINUING TO MONITOR.
--- NOTE | 2021-12-14 20:15 | NUR ---
ASSUMED CARE OF PT. REPORT RECEIVED FROM AMI BLISS. PT IS RESTLESS AND AGITATED IN BED. ON PRECEDEX GTT AT 0.6MCG/KG/HR. RESPONDS TO VOICE, BUT DOES NOT ANSWER QUESTIONS APPROPRIATELY. PT CAN HAVE ATIVAN AND DILAUDID NEEDED FOR PAIN AND AGITATION. DOBHOFF WAS PLACED TODAY, PIVOT TF RUNNING AT 25ML/HR. NC AT 2LPM, TURNED DOWN TO 1LPM. PT HAS ORAL SECRETIONS THAT NEED FREQUENT SX. COLOSTOMY IN PLACE WITH DARK BROWN/GREEN LIQUID OUTPUT, PLACED OVER MIDLINE DRESSING. SOME SATURATION NOTED ON DRESSING. SULLIVAN DRAINING YELLOW URINE TO GRAVITY. MEPILEX REMOVED ON L ELBOW FOR INSPECTION, SKIN INTACT, NO REDNESS. BELOW
--- NOTE | 2021-12-14 20:48 | NUR ---
BEDSIDE HANDOFF REPORT GIVEN TO MONI EDOUARD. PT AGAIN REPOSOTIONED AND MADE SAFE. NO ACUTE DISTRESS NOTED AT THIS TIME OTHER THAN AGITATION. PT RESTRAINED, HOB >30 DEGRESS. VSS OTHER THAN SOME NOTED TACYCARDIA.
--- NOTE | 2021-12-14 22:58 | NUR ---
DR WRIGHT IS CALLED FOR TEMP 100.7. ORDERS FOR BLODD CX X2 AND ASPIRIN RECEIVED.
[2021-12-15 04:03] LABS: Bun/Creatinine Ratio 25.6 (12.0-20.0); Calcium, Blood 8.6 mg/dL (8.5-10.1); Creatinine, Blood 0.94 mg/dL (0.60-1.20); Magnesium, Blood 2.6 mg/dL (1.6-2.4); Phosphorus, Blood 3.8 mg/dL (2.5-4.9); Potassium, Blood 3.3 mmol/L (3.5-5.5)
--- NOTE | 2021-12-15 04:48 | NUR ---
DR HALL IS CALLED WITH MORNING LAB RESULTS. IV POTASSIUM 20MEQ ORDERED AND WILL HAVE DIETARY CONSULT FOR MANAGEMENT OF TF PT MAY BENEFIT FROM INCREASED FREE WATER.
--- NOTE | 2021-12-15 06:44 | NUR ---
NO ACUTE CHANGES OVERNIGHT. PT REMAINS CONFUSED, RESPONDS TO VOICE BUT DOES NOT FOLLOW COMMANDS. PRECEDEX IS TITRATED DOWN TO 0.4MCG/KG/HR AND PRN ATIVAN AND DILAUDID ARE GIVEN SPARINGLY. PT IS RESTFUL FOR SEVERAL HOURS OVERNIGHT. HE HAS BEEN ON RA SINCE APPROX MIDNIGHT ND MAINTAINS SPO2 IN HIGH 90'S. OCCASIONAL SECRETIONS REQUIRE DEEP SX, WHICH PT TOLERATES WELL. FEVER RESOLVED WITH TYLENOL AND ASPIRIN. BLD CX PENDING. PT HAS GOOD URINE OUTPUT. TF IS NOW AT 45ML/HR WITH GOAL 55. DIETARY CONSULT IS ORDERED FOR MANAGEMENT. WILL CONTINUE TO MONITOR AND REPORT TO ONCOMING SHIFT.
--- NOTE | 2021-12-15 07:15 | NUR ---
ASSUMED CARE OF PT @0700. PT CALM AND QUIET DURING BEDSIDE REPORT. MUMBLING INCOHERANTLY. NOT ORIENTED. RR 20, SPO2 >94% ON RA. HR 90'S, SBP 130'S. PRECEDEX 0.2MCG/KG/HR. TWO TKO LINES INFUSING @10MLS/HR. PIVOT TF @45MLS/HR. COLOSTOMY LEAKING INTO SURGICAL INCISION/DRESSING. SULLIVAN CATH PATENT AND DRAINING TO GRAVITY.
--- NOTE | 2021-12-15 15:44 | NUR ---
JESICA CALLED AND NOTIFIED THAT PT PASSED SPEECH EVAL AND IS ABLE TO HAVE A PUREE DIET AND LIQUIDS. PT RESTING COMFORTABLY IN ROOM.
--- NOTE | 2021-12-15 17:50 | NUR ---
SUMMARY NEURO/PSYCH/MOBILITY: PRECEDEX INFUSING @0.2MCG/KG/HR. PT WAS ALERT AND ORIENTED X3 MOST OF THE MORNING. WORKED WITH PT/OT/ST. ABLE TO USE WALKER AND GATE BELT FOR TRANSFERS TO AND FROM RECLINER TO BED. PT COOPERATIVE AND APPRECIATIVE OF CARE. PT BECAME AGGITATED AND WAS HAVING VISUAL HALLUCINATIONS THIS EVENING. HALIDOL AND SEROQUEL GIVEN. MULTIPLE ATTEMPTS TO GET OUT OF BED. VEST RESTRAINT APPLIED. PT CALM AND RESTING IN BED. TEMP REMAINED <99.6 THROUGHOUT SHIFT. RESP: LUNGS CLEAR W/DIMINISHED R BASE. RR 19. SPO2 >92% ON RA. PT HAS COPIOUS AMOUNTS OF THICK ORAL SECRETIONS. OROPHARYNGEAL SUCTION PERFORMED MULTIPLE TIMES THROUGHOUT SHIFT. CARDIAC: CONTINUOUS CARDIAC MONITORING. HR 90-110'S. SBP 120-130'S. NO EDEMA NOTED. GI: COLOSTOMY APPLIANCE CHANGED THIS AM. MODERATE AMOUNTS OF LIQUID BROWN STOOLS THROUGHOUT SHIFT. PIVOT TF INFUSING AT GOAL RATE OF 55MLS/HR. SPEECH THERAPY EVAL: PT ON PUREE AND THIN LIQUIDS. : SULLIVAN CATH REMOVED END OF SHIFT. SKIN: MIDLINE INCISION DRESSING CHANGES PRN. MEPILEX ON BILATERAL ELBOWS. SKIN ASSESSMENT REMAINS UNCHANGED THROUGHOUT SHIFT. PICC PATENT AND INFUSING HOLLY. POWER GLIDE SALINE LOCK SULAIMAN.
--- NOTE | 2021-12-15 19:40 | NUR ---
ASSUMPTION OF CARE REPORT RECEIVED AT THE BEDSIDE FROM JOEY AND RAH RNS. PT RELAXING IN BED, WEARING A VEST RESTRAINT. PT HAD BEEN TRYING TO GET UP OUT OF BED. PT IS NO LONGER IN ANY WRIST RESTRAINTS AND DOES WELL WITH REDIRECTION AND REMINDERS TO LEAVE MEDICAL DEVICES AND TUBES IN PLACE. PT REPOSITIONED IN BED AND PULLED UP. VEST RESECURED. PT HAS A HOLLY PICC LINE THAT HAS PRECEDEX INFUSING AT 0.2 AND D5 @ 125 TO ADDRESS HYPONATREMIA. PT ALSO HAS SMALL BORE FEEDING TUBE IN THE NOSE. PT RECEIVING EN VIA DH TUBE. PT ASLSO IS ORDERED A PUREED DIET AND PASSED SPEECH EVAL TODAY WITHOUT ISSUES. SULLIVAN CATHETER HAS BEEN REMOVED PER MD ORDER. PT SAFE WITH BED IN LOW POSITION AND WHEELS LOCKEC. SIDRAILS UP X3. NO ACUTE DISTRESS NOTED AT THIS TIME. VSS. WILL CONTINUE TO MONITOR.
--- NOTE | 2021-12-15 22:00 | NUR ---
PT WAS OBSERVED ATTEMPTING TO GET OUT OF BED. PT REORIENTED AND PLACED BACK IN BED. VEST RETRAINT CHECKED AND RESECURED. PT GIVEN PAIN MEDICATION DUE TO ADBOMINAL DISCOMFORT AND HALDOL DUE TO AGITATION. PT HAS BEEN REQUIRING THIS INTERMITTENTLY. PT IS ORIENTED TO SELF AND LOCATION BUT DOESNT UNDERSTAND HIS SITUATION AND LIMITATIONS IN MOBILITY. PT GIVEN IV HALDOL AND GOT PT INTO A COMFORTABLE POSITION. VSS. WILL CONTINUE TO MONITOR.
--- NOTE | 2021-12-16 | NUR ---
FOLLOW UP ASSESSMENT PT REMAINS STABLE AT THIS TIME. PT LAYING IN BED, VERY RESTLESS INTERMITTENTLY. PT CAN TELL ME WHO HE IS AND WHERE HE IS BUT DOES NOT UNDERSTAND HIS LIMITATIONS OR HIS SITUATION, PT CONTINUOUSLY ATTEMPTING TO GET OUT OF BED. DENISSE VEST REMAINS IN PLACE AND IS SECURE. PT ON ROOM AIR, SATS ARE GOOD AND NAD NOTED AT THIS TIME. PT REMAINS WITH A LOW GRADE FEVER. PT HAVING GOOD COLOSTOMY OUTPUT, BUT HAS NOT VOIDED AT THIS TIME SINCE SULLIVAN WAS REMOVED AND EXTERNAL CATHETHER APPLIED. WILL CONITNUE TO MONITOR.
[2021-12-16 03:57] LABS: BASOPHILS ABSOLUTE AUTO 0.07 K/mm3 (0.00-0.23); BASOPHILS PERCENT AUTO 1 % (0-2); EOSINOPHILS ABSOLUTE AUTO 0.42 K/mm3 (0.00-0.68); EOSINOPHILS PERCENT AUTO 4 % (0-6); Hematocrit 30.9 % (37.0-53.0); IMMATURE GRAN ABSOLUTE AUTO 0.03 K/mm3 (0.00-0.10); IMMATURE GRAN PERCENT AUTO 0 % (0-1); LYMPHOCYTES ABSOLUTE AUTO 1.97 K/mm3 (0.84-5.20); LYMPHOCYTES PERCENT AUTO 19 % (21-46); MONOCYTES ABSOLUTE AUTO 0.78 K/mm3 (0.16-1.47); MONOCYTES PERCENT AUTO 8 % (4-13); Mean Corpuscular HGB 28.1 pg (26.0-34.0); Mean Corpuscular HGB Conc 32.4 g/dL (31.5-36.5); Mean Corpuscular Volume 87 fL (80-100); Mean Platelet Volume 9.6 fL (9.1-12.4); NEUTROPHILS ABSOLUTE AUTO 7.18 K/mm3 (1.96-9.15); NEUTROPHILS PERCENT AUTO 69 % (41-73); Platelet Count 550 K/mm3 (150-400); RDW Coefficient Variation 15.6 % (11.7-14.2); Red Blood Cell Count 3.56 M/mm3 (4.30-5.90); White Blood Cell Count 10.45 K/mm3 (4.00-11.30)
--- NOTE | 2021-12-16 04:00 | NUR ---
PT BECAME AGITATED A LITTLE AFTER MIDNIGHT. PT PRECEDEX WAS INCREASED FROM 0.4 TO 0.6 AT 0100 AND PATIENT WAS GIVEN HALDOL. AFTER THIS WAS INEFFECTIVE, RESIDENT ROD CUP FILLER WAS NOTIFIED AND AN ADDITIONAL 50MG OF SEROQUEL WAS GIVEN A ONE TIME DOSE FOR AGITATION. PT PRECEDEX REMAINS AT 0.6. PT RECEIVING EN VIA DHT FOR EXTRA NUTRITIONAL SUPPORT. PT VERY RESTLESS THROUGHOUT THE NIGHT AND IS ENDORSING VISUAL HALLUCINATIONS AND HAS DELUSIONS ABOUT MEN IN HIS ROOM "SMOKING METH". PT REMAINS OTHERWISE STABLE WITH VITALS. PT HAS STILL NOT VOIDED. BEDSIDE BLADDER SCANNER READS >600 IN BLADDER. PT STRAIGHT CATHED AND IMMEDIATELY RECEIVED >350 OF URINE. NOW TO GRAVITY TO DRAIN. COLOSTOMY HAS HAD GOOD OUTPUT AND IS NOTED TO HAVE FREQUENT FLATUS BUILDING UP IN BAG. PT VEST RESTRAINT REMAINS IN PLACE. PT IS SAFE WITH SIDERAILS UP X3, BED LOCKED IN LOW POSTION WITH THE BED ALARM ACTIVE. WILL CONTINUE TO MONITOR.
[2021-12-16 04:25] LABS: Bun/Creatinine Ratio 27.6 (12.0-20.0); Creatinine, Blood 0.83 mg/dL (0.60-1.20); Potassium, Blood 3.4 mmol/L (3.5-5.5)
--- NOTE | 2021-12-16 07:00 | NUR ---
ASSUMED CARE OF PT @0700. PT SLEEPING DURING BEDSIDE REPORT. SPO2 92% ON RA. HR 70'S. SPB 150'S. PIVOT TF INFUSING AT GOAL RATE 55MLS/HR. PRECEDEX 0.6MCG/KG/HR. TKO 10MLS/HR.
--- NOTE | 2021-12-16 18:15 | NUR ---
SUMMARY NEURO/PSYCH/MOBILITY: PT REMAINED ALERT, ORIENTED, COOPERATIVE, AND PLEASANT THROUGHOUT SHIFT. WORKED WITH PT/OT/SPEECH AND IS ABLE TO TRANSITION FROM BED TO RECLINER AND BACK WITH WALKER AND ASSISTANCE. PT IS ABLE TO COMPLETE MOST ADL'S WITH MINIMAL ASSISTANCE. PRECEDEX TITRATED DOWN AND TURNED OFF. RESP: LUNGS ARE CLEAR WITH DIMINISHED BASE ON RIGHT SIDE. RR 15-25. SPO2 >92% ON RA. PT HAS REDUCATION IN ORAL SECRETIONS THIS AFTERNOON. DID NOT NEED ORALPHARYNGEAL SUCTIONING THIS SHIFT. ABLE TO COUGH AND MANAGE SECRETIONS. CARDIAC: CONTINUOUS CARDIAC MONITORING. HR 90-120. SBP 130-150'S. NO EDEMA NOTED. GI: OSTOMY APPLIANCE CHANGED AT 1800. STOMA IS BEEFY AND MOIST. MODERATE AMOUNTS OF LIQUID BROWN STOOLS. PIVOT TF INFUSING AT GOAL RATE 55MLS/HR. PT IS ON MECHANICAL SOFT DIET. EATING 10-15% OF EACH MEAL. : PT VOIDING INDEPENDENTLY INTO URINAL MODERATE AMOUNTS OF YELLOW URINE. SKIN: MIDLINE INCISION DRESSING CHANGED. MEPILEX BILATERAL ELBOWS. SKIN ASSESSMENT REMAINS UNCHANGED THROUGHOUT SHIFT. PICC PATENT AND INFUSING TKO HOLLY. POWERGLIDE PATENT W/SALINE LOCK SULAIMAN.
--- NOTE | 2021-12-16 19:15 | NUR ---
ASSUMPTION OF CARE BEDSIDE REPORT GIVEN WITH THE PATIENT RESTING COMFROTABLY IN BED. PT HAS HAD SOME CHANGES IN MEDICATIONS SINCE PREVIOUS SHIFT AND SEEMS TO BE TOLERATING THEM VERY WELL. SEROQUEL WAS INCREASED AND OTHER ANTIPSYCHOTICS WERE DEC'D. ZYPREXA IM ON STANDBY USE PRN AGITATION. WILL AVOID THIS OPTION. PT DEMONSTRATED ABILITY TO SIT ON EOB AND SPONTANEOUSLY VOID. URINE NOTED TO BE CLEAR/STRAW COLORED PT HAS HAD LASIX TODAY. NO DISTRESS NOTED WITH THIS ACTIVITY. PT WAS ABLE TO GET BACK IN BED AND POSTITION HIMSELF WITH LIGHT ASSSISTANCE. PT MUCH MORE ALERT AND ORIENTED TO SITUATION. PT RESTING COMFORTABLY ON ROOM AIR, COLOSTOMY INTACT. MIDLINE ABDOMINAL INCISION DRESSING CDI. NERUROVASCULAR SYSTEM IS WNL. PO MEDS GIVEN AND PT NOW APPEARS TO BE RESTING AT 2130. VSS. WILL CONTINUE TO MONITOR.
--- NOTE | 2021-12-17 | NUR ---
FOLLOW UP ASSESSMENT THIS PATIENT WAS OBSERVED RESTING IN BED AT THIS TIME. NO ACUTE DISTRESS NOTED. PT HAD A EPISODE OF AGITATION EARLIER AND WAS GIVEN AN ADDITIONAL SEROQUEL PER THE HSOPTIALIST. PT ORDERED PRN ZYPREXA, BUT WANTED TO HOLD OFF ON THAT A LAST MEASURE FOR AGITATION. SEROQUEL WORKED WELL FOR THE PATIENT. PT HAS BEEN GETTING PAIN MEDICINE INTERMITTENTLY FOR ABDOMEN S/P COLECTOMY. PT HAS BEEN ALERT AND ORIENTED MOST OF THE NIGHT BUT IS HAZY ABOUT HIS CURRENT MEDICAL CONDITION AND THE EVENTS OF WHAT HAS HAPPENED SINCE HE WAS ADMITTED AND REQUIRED EMERGENCY SURGERY. PT CALM AND FOLLOWS COMMANDS WELL. VSS. WILL CONTINUE TO MONITOR.
[2021-12-17 03:58] LABS: BASOPHILS ABSOLUTE AUTO 0.06 K/mm3 (0.00-0.23); BASOPHILS PERCENT AUTO 1 % (0-2); EOSINOPHILS ABSOLUTE AUTO 0.39 K/mm3 (0.00-0.68); EOSINOPHILS PERCENT AUTO 4 % (0-6); Hematocrit 34.9 % (37.0-53.0); Hemoglobin 11.1 g/dL (13.5-17.5); IMMATURE GRAN ABSOLUTE AUTO 0.02 K/mm3 (0.00-0.10); IMMATURE GRAN PERCENT AUTO 0 % (0-1); LYMPHOCYTES ABSOLUTE AUTO 2.08 K/mm3 (0.84-5.20); LYMPHOCYTES PERCENT AUTO 21 % (21-46); MONOCYTES ABSOLUTE AUTO 0.74 K/mm3 (0.16-1.47); MONOCYTES PERCENT AUTO 7 % (4-13); Mean Corpuscular HGB 27.3 pg (26.0-34.0); Mean Corpuscular HGB Conc 31.8 g/dL (31.5-36.5); Mean Corpuscular Volume 86 fL (80-100); Mean Platelet Volume 9.8 fL (9.1-12.4); NEUTROPHILS ABSOLUTE AUTO 6.88 K/mm3 (1.96-9.15); NEUTROPHILS PERCENT AUTO 68 % (41-73); Platelet Count 607 K/mm3 (150-400); RDW Coefficient Variation 15.3 % (11.7-14.2); RDW Standard Deviation 48.3 fL (35.1-46.3); Red Blood Cell Count 4.06 M/mm3 (4.30-5.90); White Blood Cell Count 10.17 K/mm3 (4.00-11.30)
[2021-12-17 04:20] LABS: Bun/Creatinine Ratio 29.9 (12.0-20.0); Calcium, Blood 8.8 mg/dL (8.5-10.1); Creatinine, Blood 0.77 mg/dL (0.60-1.20); Magnesium, Blood 2.2 mg/dL (1.6-2.4); Phosphorus, Blood 3.4 mg/dL (2.5-4.9); Potassium, Blood 3.3 mmol/L (3.5-5.5)
--- NOTE | 2021-12-17 05:17 | NUR ---
SHIFT SUMMARY OVERNIGHT PT WAS STABLE, NOTED TO BE SINUS TACH ON THE MONITOR MOST OF THE NIGHT BUT ALSO CONCURRENTLY HAD A LOW GRADE FEVER. TMAX 99.3. PT HAS BEEN TURNING INDEPENDENTLY IN BED AND SITTING ON THE EDGE OF BED TO USE THE URINAL. PT VITALS HAVE BEEN STABLE OVERNIGHT OTHERWISE. PT HAS HAD GOOD URINE OUTPUT AND STOOL OUT OF OSTOMY. PT ALSO HAVING GAS IN APPLIANCE, REQUIRING BURPING OF THE BAG SEVERAL TIMES. PT STILL WITH THE DH TUBE IN PLACE RECEIVING PIVOT FOR EN SUPPORT. PICC TO HOLLY IS SALINE LOCKED, INTERMITTENTLY RECEIVING ANTIBIOTICS. PT MUCH MORE ORIENTED THIS SHIFT. WILL CONTINUE TO MONITOR.
--- NOTE | 2021-12-17 13:10 | NUR ---
REASSESSMENT PT CONTINUES TO BE ALERT AND ORIENTED, CONVERSING APPROPRIATELY. HE HAS BEEN SITTING UP ON THE EOB OR IN THE RECLINER ON AND OFF THROUGHOUT THE MORNING. LUNGS HAVE A FEW CRACKLES IN THE BASES, REMAINS ON RA WITH SPO2 95%. SINUS TACH WITH RATE IN THE 100S AT REST, UP TO 120S WITH ACTIVITY. POOR APPETITE. STILL RECEIVING TUBE FEED. COLOSTOMY WITH GOOD OUTPUT, LOOSE BROWN STOOL IN THE BAG. STOMA PINK. DR. SANCHEZ GAVE OK FOR PT TO BE PCU STATUS. PT'S AT THE BEDSIDE CURRENTLY.
--- NOTE | 2021-12-17 17:35 | NUR ---
SHIFT SUMMARY PT HAS CONTINUED TO BE ALERT AND ORIENTED THROUGHOUT THE SHIFT. MEDICATED ONCE FOR PAIN WITH GOOD EFFECT. REMAINS ON RA WITH SPO2 IN THE MID 90S. SINUS TACH WITH RATE IN THE 110S AT REST, 130 WITH ACTIVITY. PT ATE 1 BOWL OF FRUIT LOOPS THAT HIS BROUGHT IN BUT OTHERWISE HAS HAD POOR APPETITE. HE STATES EVERYTHING HAS A METALLIC TASTE MAKING IT UNAPPEALING. STILL RECEIVING TUBE FEED AND TOLERATING. COLOSTOMY WITH LOOSE BROWN STOOL IN THE BAG. VOIDING USING URINAL. PT REFUSED PHYSICAL THERAPY AND A BATH TODAY BECAUSE HE SAID HE FEELS WORN OUT, BUT HE DOES GET TO THE EDGE OF THE BED FREQUENTLY TO VOID, STOOD SEVERAL TIMES AND SAT IN THE CHAIR FOR ABOUT AN HOUR. PT ALSO SAYS HE HAS BEEN DOING THE LEG EXERCISES THE THERAPIST GAVE HIM. PT'S SPENT THE AFTERNOON AT THE BEDSIDE AND HAS BEEN UPDATED.
--- NOTE | 2021-12-17 19:30 | NUR ---
ASSUMPTION OF CARE REPORT GIVEN AT THE BEDSIDE WITH THE PATIENT AND HIS . PT CONTRIBUTING TO CONVERSATION AND VERBALIZED SHE IS FEELING RELIEVED KNOWING HE IS NO LONGER AGITATED. PT APPEARS COMFORTABLE IN BED AND HAS BEEN DOWN GRADED TO PCU STATUS. PATIENT IS ABLE TO INDEPENDENTLY MOVE IN BED AND SIT TO EOB TO VOID CLEAR YELLOW URINE. PT REMAINS WITH A DH TUBE IN PLACE TO SUPPLEMENT PATIENT NUTRITION. PIVOT TUBE FEEDING @55ML/HR. PT REPORTS JUST A GENERAL SENSE OF NOT FEELING WELL, EVEN THOUGH THE PATIENT DOESNT APPEAR TO BE IN ANY KIND OF DISTRESS. PT WAS UNABLE TO VERBALIZE WHAT EXACTLY IS BOTHERING HIM. PT ASSISTED WITH REPOSITIONING AND IMPROVING COMFORT. PT VITALS ARE STABLE BUT PT IS NOTED TO BE SINUS TACH ON THE MONITOR. WILL MONITOR PATIENT FOR S/S OF DEHYDRATION OR FEVER. WILL CONTINUE TO MONITOR.
--- NOTE | 2021-12-18 00:07 | NUR ---
FOLLOW UP ASSESSMENT FOLLOW UP ASSESSMENT COMPLETED AT THE BEDSIDE DURING HOURLY ROUNDING. PT REMAINS STABLE. PT OBSERVED SLEEPING IN BED WITH DH TUBE IN PLACE WITH PIVOT THROUGH IT AT 55. PT NSR ON THE MONITOR AND VITALS HAVE BEEN STABLE OTHER THAN SOME TACHYCARDIA NOTED. PT SAT GREAT ON ROOM AIR. HOLLY PICC SALINE LOCKED. PT VOIDING PER URINAL. WILL CONTINUE TO MONITOR.
--- NOTE | 2021-12-18 00:30 | NUR ---
NOT LONG AFTER MY MIDNIGHT ASSESSMENT PT WAS VISUALIZED GETTING OUT OF BED. PT HAD URINATED ALL OVER HIS GOWN AND VARIOUS OTHER ITEMS. PT ATTEMPTING TO UNSCREW PICC LINE. EDUCATED PT ON THE IMPORTANCE OF LEAVING MEDICAL DEVICES/ LINES ALONE AND CALLING OUT BEFORE ATTEMPTING TO GET OUT OF BED. PT ALSO REMOVED HIS DH TUBE. IT WAS FOUND IN THE FLOOR. PT HAS BEEN ALERT AND ORIENTED PRIOR TO THIS SO THERE IS SOME DEFINITE CONCERN FOR ICU DELERIUM. TURNED PT BED ALARM BACK ON. INSTRUCTED PT TO USE THE CALL LIGHT AND GET ASSISTANCE FROM STAFF IF HE NEEDS TO DO ANYTHING THAT REQUIRES HIM TO GET UP AND OOB. WILL CONTINUE TO MONITOR.
[2021-12-18 03:30] LABS: BASOPHILS ABSOLUTE AUTO 0.06 K/mm3 (0.00-0.23); BASOPHILS PERCENT AUTO 1 % (0-2); EOSINOPHILS ABSOLUTE AUTO 0.29 K/mm3 (0.00-0.68); EOSINOPHILS PERCENT AUTO 3 % (0-6); Hematocrit 33.8 % (37.0-53.0); Hemoglobin 11.1 g/dL (13.5-17.5); IMMATURE GRAN ABSOLUTE AUTO 0.05 K/mm3 (0.00-0.10); IMMATURE GRAN PERCENT AUTO 0 % (0-1); LYMPHOCYTES ABSOLUTE AUTO 2.27 K/mm3 (0.84-5.20); LYMPHOCYTES PERCENT AUTO 20 % (21-46); MONOCYTES PERCENT AUTO 8 % (4-13); Mean Corpuscular HGB Conc 32.8 g/dL (31.5-36.5); Mean Corpuscular Volume 85 fL (80-100); Mean Platelet Volume 9.8 fL (9.1-12.4); NEUTROPHILS ABSOLUTE AUTO 8.07 K/mm3 (1.96-9.15); NEUTROPHILS PERCENT AUTO 69 % (41-73); Platelet Count 545 K/mm3 (150-400); RDW Coefficient Variation 15.4 % (11.7-14.2); RDW Standard Deviation 48.1 fL (35.1-46.3); Red Blood Cell Count 3.96 M/mm3 (4.30-5.90); White Blood Cell Count 11.64 K/mm3 (4.00-11.30)
[2021-12-18 03:50] LABS: Albumin, Blood 2.4 g/dL (3.4-5.0); Albumin/Globulin Ratio 0.5 (0.8-1.8); Bilirubin, Total 0.3 mg/dL (0.1-1.0); Bun/Creatinine Ratio 32.7 (12.0-20.0); Calcium, Blood 8.7 mg/dL (8.5-10.1); Creatinine, Blood 0.86 mg/dL (0.60-1.20); Magnesium, Blood 2.1 mg/dL (1.6-2.4); Phosphorus, Blood 4.1 mg/dL (2.5-4.9); Potassium, Blood 3.5 mmol/L (3.5-5.5); Total Protein, Blood 7.4 g/dL (6.4-8.2)
--- NOTE | 2021-12-18 04:58 | NUR ---
SHIFT SUMMARY PT HAS RESTED COMFORTABLY OVERNIGHT IN BED. PT HAS BEEN ORIENTED MOST OF THE NIGHT, BUT HAD SOME CONFUSION AROUND 2 AM. PT WAS DROWSY FROM SEROQUEL SO THIS COULD HAVE BEEN A CONTRIBUTING FACTOR SINCE THIS IS A NEW MED FOR HIM. PT REORIENTED AND GUIDED BACK TO BED. PT HAS BEEN SLEEPING SINCE WITH NO ACUTE DISTRESS NOTED. VITALS HAVE ALL BEEN STABLE THROUGHOUT THE NIGHT. PT HAS BEEN VOIDING IN THE URINAL AND HAS HAD ADEQUATE OUTPUT THROUGHOUT THE NIGHT. LABS WERE DRAWN AND ARE NOTED TO BE CONSISTENT WITH PREVIOUS LAB FINDINGS. POTASSIUM IS 3.5, NOT REQUIRING REPLACEMENT THIS MORNING. HE WILL HAVE ANOTHER DOSE IN THE AM SO THIS SHOULD KEEP HIM ABOVE 3.5. VITALS ARE STABLE. WILL CONTINUE TO MONITOR.
--- NOTE | 2021-12-18 11:51 | NUR ---
REASSESSMENT PT HAS BEEN RESTING IN BED OR SITTING UP ON THE EDGE OF THE BED THIS MORNING. HE STATES THAT HE GENERALLY ISN'T FEELING WELL AGAIN TODAY. HE DESCRIBES GENERAL MALAISE AND SOME BODY ACHES. AFEBRILE. DISCUSSED WITH DR. COBOS. DOBHOFF REMAINS OUT AND PT WAS ABLE TO EAT A LITTLE BIT OF BREAKFAST. OFFERED TO ORDER HIM OTHER FOOD BUT PT REFUSES. HE STATES HE WILL ASK HIS IF ANYTHING SOUNDS GOOD. OFFERED PT BATH BUT HE SAYS HE HAS PLANS TO HAVE HIS HELP HIM LATER TODAY. PT WAS ABLE TO SLEEP FOR ABOUT AN HOUR THIS MORNING. OSTOMY PUTTING OUT LOOSE BROWN STOOL. EDUCATIONON OSTOMIES STARTED WHILE EMPTYING PT'S BAG. VOIDING USING THE URINAL.
--- NOTE | 2021-12-18 16:07 | NUR ---
Pt's mentation has improved dramatically. He is no longer requiring restraints, and is able to answer questions appropriately. No new issues at this time.
--- NOTE | 2021-12-18 16:46 | NUR ---
SHIFT SUMMARY PT HAS CONTINUED TO BE ALERT AND ORIENTED THROUGHOUT THE SHIFT. WHEN HE WAS WAKING UP FROM A NAP THIS AFTERNOON PT STATES THAT HE HE SAW A CAT IN THE CORNER OF THE ROOM, BUT HE WOKE UP MORE HE REALIZED THAT HE WAS SEEING THINGS AND THEN THE CAT WENT AWAY. HE HAS CONTINUED ON RA, CLEAR LUNGS. COUGHING BUT NOT BRINGING ANYTHING UP. SINUS TACH IN THE LOW 100S AT REST TODAY. PT ATE A LITTLE BIT OF BREAKFAST AND THEN A LITTLE BIT OF LUNCH THAT HIS BROUGHT IN. OSTOMY CONTINUES TO PUT OUT LOOSE BROWN STOOL. STOMA PINK. PT'S CAME IN AND WAS UPDATED. CONTINUING TO MONITOR.
--- NOTE | 2021-12-18 19:51 | NUR ---
ASSUMPTION OF CARE NOTE BEDSIDE REPORT GIVEN WITH THE PATIENT AVAILABLE TO CONTRIBUTE. PT IS SITTING COMFORTABLTY IN BED, NOTED TO BE SINUS TACH ON THE MONITOR, OTHER VSS. PT IS BECOMING MORE ORIENTED AND ACTIVE IN HIS CARE. PT IS SPONTANEOUSLY VOIDING IN THE URINAL AND IS ABLE TO DO THIS STANDING AT THE BEDSIE. PT IS CONTINUING TO ADVANCE AND IS ANTICIPATED TO GO OUT OF THE ICU SOON. WILL CONTINUE TO MONITOR.
--- NOTE | 2021-12-19 | NUR ---
PT A&OX4 DURING THE BEGIMNNING OF THE SHIFT, BUT ONCE THE SUN WENT DOWN THE PATIENT BECAUSE CONFUSED. IT STARTED WITH SOME PLEASANT CONFUSION AND THEN PROGRESSED TO WANTING TO LEAVE. REORIENTED AND REMINDED THE PATIENT OF THE RECENT EVENTS AND HE IS AGREEABLE AND CAME AROUND AND STATED HE REMEMBERS NOW. PATIENT HAS BEEN VERY PLEASANT AND THANKFUL FOR CARE. PT HAS BEEN STANDING AND USING THE URINAL AND IS ABLE TO WALK AROUND THE ROOM WITH ASSISTANCE. I ANTICIPATE PT BEING TRANSFERRED OUT OF THE ICU IF HE CONTINUES TO IMPROVE AT THIS RATE. WILL CONTINUE TO MONITOR.
[2021-12-19 04:11] LABS: BASOPHILS PERCENT AUTO 1 % (0-2); EOSINOPHILS ABSOLUTE AUTO 0.41 K/mm3 (0.00-0.68); EOSINOPHILS PERCENT AUTO 4 % (0-6); Hemoglobin 10.9 g/dL (13.5-17.5); IMMATURE GRAN ABSOLUTE AUTO 0.05 K/mm3 (0.00-0.10); IMMATURE GRAN PERCENT AUTO 1 % (0-1); LYMPHOCYTES ABSOLUTE AUTO 2.39 K/mm3 (0.84-5.20); LYMPHOCYTES PERCENT AUTO 24 % (21-46); MONOCYTES ABSOLUTE AUTO 0.83 K/mm3 (0.16-1.47); MONOCYTES PERCENT AUTO 8 % (4-13); Mean Corpuscular HGB 27.4 pg (26.0-34.0); Mean Corpuscular HGB Conc 32.1 g/dL (31.5-36.5); Mean Corpuscular Volume 85 fL (80-100); Mean Platelet Volume 10.6 fL (9.1-12.4); NEUTROPHILS ABSOLUTE AUTO 6.14 K/mm3 (1.96-9.15); NEUTROPHILS PERCENT AUTO 62 % (41-73); Platelet Count 410 K/mm3 (150-400); RDW Coefficient Variation 15.5 % (11.7-14.2); RDW Standard Deviation 48.5 fL (35.1-46.3); Red Blood Cell Count 3.98 M/mm3 (4.30-5.90); White Blood Cell Count 9.92 K/mm3 (4.00-11.30)
[2021-12-19 04:19] LABS: Bun/Creatinine Ratio 27.9 (12.0-20.0); Creatinine, Blood 0.86 mg/dL (0.60-1.20); Potassium, Blood 3.5 mmol/L (3.5-5.5)
--- NOTE | 2021-12-19 05:58 | NUR ---
SHIFT SUMMARY PT HAD A VERY GOOD NIGHT LAST NIGHT. HE WAS MUCH LESS CONFUSED THAN HE HAS BEEN THE LAST COUPLE OF WEEKS. PT REPORTS PAIN AT THE SURGICAL SITE WITH QUICK MOVEMENTS OR ABRUPT TURNS. PT PULLED DH TUBE OUT YESTERDAY SO TGHE PATIENT HAS A MECHANICAL SOFT FIET THAT HE NEEDS TO BE ENCOURAGERD TO GET HIS NUTRITION TO HELP HEAL FROM SURGERY. VITALS HAVE BEEN STABLE ALL NIGHT. WILL DONTINEU TO MONITOR.
--- NOTE | 2021-12-19 06:28 | NUR ---
SHIFT SUMMARY PT HAS BEEN STABLE OVERNIGHT. PT HAS REMAINED ON ROOM AIR, IS ABLE TO STAND AND VOID AND HAS BEEN ORIENTED EXCEPT FOR A COUPLE OF TIMES HE FORGETS WHERE HE IS/SITUATION. THESE EPISODES HAVE ALL HAPPENED AT NIGHT AND THEY ARE LIKELY DELERIUM SINCE PT IS ORIENTED THE REST OF THE DAY. NEW MEDICATION SEROQUEL CAN ALSO MAKE YOU A LITTLE DISORIENTED AT TIMES. PT WANTING TO GO SMOKE BUT REINFORCED THE FACT THAT HE HAS NO CIGARETTES AND SMOKING IS ALSO NOT ALLLOWED ON THE CAMPUS. PT PUT BACK INTO BED, SAFE WITH BED IN LOW AND LOCKED POSITION.
--- NOTE | 2021-12-19 09:25 | NUR ---
ASSUMED CARE OF TEREZA AT 0700, HE HAS BEEN UP AND WALKING ABOUT THE ROOM, HE WAS UP IN THE CHAIR FOR BREAKFAST. HE IS USING HIS URINAL INDEPENDENTLY, IS WITHOUT ANY COMPLAINTS OF PAIN. HE IS TOLERATING HIS PILLS WHOLE WITH SODA, S/T IN TO RE-EVAL AND MOVED HIM UP IN HIS DIET. HIS COLOSTOMY IS C/D/I, TAPED WELL, STATES HE NEEDS EDUCATION ON HOW TO CARE FOR THIS AT HOME. WILL WORK WITH HIM TODAY IN REGARDS TO THIS. HE WANTS TO GO FOR A WALK AROUND THE UNIT AND GET HIMSELF CLEANED UP. HE IS BEING APPROPRIATE, RECALLING NAMES OF STAFF THAT COME IN, CONCERNED ABOUT HIS BLOOD PRESSURE. REMINDED THAT HE JUST TOOK HIS METOPROLOL.
--- NOTE | 2021-12-19 12:48 | NUR ---
TEREZA FINISHED HIS LUNCH, HE ATE HIS SANDWICH AND DRANK HIS MILK, WHILE UP IN THE CHAIR. HE WENT BACK TO BED. DRESSING OVER INCISION REMOVED AND LEFT OPEN TO AIR, LEN INTACT, SKIN C/W/D. THE STOMA SITE WAS UNDRESSED AND PT WAS TAUGHT HOW TO MEASURE, CUT AND PLACE APPLIANCE. QUESTIONS WERE ANSWERED AND PT EXPRESSED UNDERSTANDING. PT ENCOURAGED TO CONTINUE TO ASK QUESTIONS AND REMINDED THAT HOME HEALTH WILL BE AVAILABLE FOR THE SHORT TERM TO ASSIST WITH ANY CONCERNS HE MAY HAVE ONCE HE GOES HOME.
--- NOTE | 2021-12-19 16:54 | NUR ---
TEREZA HAS WORKED WITH BOTH PT AND OT, HE HAS GIVEN HIMSELF A BATH. HE IS INDE- PENDENT IN THE ROOM, TO THE BATHROOM WHEN NEEDED. HE HAS WALKED AROUND THE UNIT WITHOUT AID. HIS ILIOSTOMY IS CLEAN/DRY/INTACT. MORE TEACHING DONE IN REGARDS TO CHANGING BAG POSITION. WILL ASK NEXT SHIFT TO LET HIM DO THE EMPTY. HE HAS BEEN DOZING ON AND OFF, UP IN THE CHAIR FOR MEALS. WATCHING TELEVISION AND CARRYING ON CONVERSATION.
--- NOTE | 2021-12-20 06:21 | NUR ---
Shift summary. Pt rested in bed throughout shift. Alert and oriented, on room air. No acute events overnight, VS stable throughout shift. See shift assessment for further details. Will continue to monitor and report off to dayshift RN.
[2021-12-20] MEDS ORDERED: BUSP5 PO (12:10)
[2021-12-20] MEDS ORDERED: QUETIAPINE FUMA50 M5 PO (12:10)
[2021-12-20] MEDS ORDERED: Seroquel Xr50 MG PO (12:12)
[2021-12-20] MEDS ORDERED: QUET200 PO (12:29)
--- NOTE | 2021-12-20 12:45 | NUR ---
SUMMARY PT A/OX4. DENIES PAIN. AMB INDEP IN ROOM. REPLACED OSTOMY APPLIANCE TWICE TODAY. REMOVED LEN TO MID ABD PER DR. ORDONEZ. SITE LOOKS GOOD. PT IS SET UP WITH HOME HEALTH FOR DISCHARGE. ALSO HAS APPT SET UP WITH ONCOLOGY. DISCHARGE INSTRUCTIONS GONE OVER WITH PT AND SPOUSE. VERBALIZES UNDERSTANDING. SENT HOME WITH EXTRA OSTOMY DEVICES. PICC LINE REMOVED. PT TAKEN OUT TO CAR VIA W/C WITH BOARDING SPECIALIST AND ACCOMPANYING. NO SIGN OF DISTRESS PT LEAVES THE UNIT.
== END 2021-12-20 12:45 | disposition home or self-care (01) | DRG 853 ==
LOC: ER 06:25 → SURS 08:53 → ICUW 14:04 → SURS 14:04 → ICUW 12-04 18:12
PROVIDERS: Emergency Medicine; Family Medicine; Internal Medicine; Internal Medicine Critical Care Medicine; Surgery; ADMIT Surgery
PROC: HZ2ZZZZ Detoxification Services for Substance Abuse Treatment (ICD-10-PCS; 2021-12-02)
PROC: 3E03329 Introduction of Other Anti-infective into Peripheral Vein, Percutaneous Approach (ICD-10-PCS; principal; 2021-12-02 10:00)
PROC: 0D1N0Z4 Bypass Sigmoid Colon to Cutaneous, Open Approach (ICD-10-PCS; 2021-12-02 10:00)
PROC: 0DBN0ZZ Excision of Sigmoid Colon, Open Approach (ICD-10-PCS; 2021-12-02 10:00)
PROC: 02HV33Z Insertion of Infusion Device into Superior Vena Cava, Percutaneous Approach (ICD-10-PCS; 2021-12-07)
PROC: 0BH18EZ Insertion of Endotracheal Airway into Trachea, Via Natural or Artificial Opening Endoscopic (ICD-10-PCS; 2021-12-11)
PROC: 5A1945Z Respiratory Ventilation, 24-96 Consecutive Hours (ICD-10-PCS; 2021-12-11)
DX: A41.9 Sepsis, unspecified organism (principal); G92.8 Other toxic encephalopathy; J18.9 Pneumonia, unspecified organism; K63.1 Perforation of intestine (nontraumatic); K65.9 Peritonitis, unspecified; J96.01 Acute respiratory failure with hypoxia; C18.9 Malignant neoplasm of colon, unspecified; C78.7 Secondary malignant neoplasm of liver and intrahepatic bile duct; E87.1 Hypo-osmolality and hyponatremia; F10.239 Alcohol dependence with withdrawal, unspecified; J91.8 Pleural effusion in other conditions classified elsewhere; J98.11 Atelectasis; C78.00 Secondary malignant neoplasm of unspecified lung; Z78.1 Physical restraint status; E87.6 Hypokalemia; E86.0 Dehydration; R45.1 Restlessness and agitation; I25.10 Atherosclerotic heart disease of native coronary artery without angina pectoris; I10 Essential (primary) hypertension; F17.210 Nicotine dependence, cigarettes, uncomplicated; I25.2 Old myocardial infarction; Z98.890 Other specified postprocedural states; Z79.82 Long term (current) use of aspirin; Z79.899 Other long term (current) drug therapy
CPT/HCPCS: 31500; 36415; 36569; 51702; 70470; 71045; 71260; 74177; 80048; 80053; 80069; 80202; 81003; 82140; 82378; 82947; 83690; 83735; 83880; 84100; 84132; 84145; 84295; 84478; 84484; 85014; 85018; 85025; 85027; 87040; 87070; 87075; 87076; 87077; 87185; 87186; 87205; 88309; 88342; 92526; 92610; 93005; 93010; 94002; 94003; 94640; 94664; 94667; 94668; 94760; 94762; 96374; 96375; 97110; 97112; 97116; 97162; 97164; 97167; 97530; 97535; 99285-25; A9270; C1751; C9113; J0295; J1100; J1170; J1630; J1650; J1885; J1940; J2060; J2250; J2270; J2370; J2405; J2543; J2704; J2765; J3010; J3370; J3411; J3475; J3480; J7030; J7050; J7060; J7070; J7120; J7131; Q9967

== ENCOUNTER 2022-01-09 05:56 | Day surgery (SDC) | payer OTHER ==
[~2022-01-09] VITALS: Ht 182.9 cm; Wt 83.5 kg
[~2022-01-09 05:56] MED LIST changes: +BUSP5 PO; +QUET200 PO; +QUETIAPINE FUMA50 M5 PO; +Seroquel Xr50 MG PO
--- NOTE | 2022-01-09 07:33 | NUR ---
Ambulatory in Day Surgery. Patient confirms NPO status and agrees with scheduled surgery. Lungs clear T/O to Auscultation. Pre-Op teaching done. Pt verbalizes understanding. Patient reports completing Chlorhexadine shower X2 prior to admission to hospital.
--- NOTE | 2022-01-09 09:10 | NUR ---
Patient up to Ambulate independently. Gait steady. Discharge instructions reviewed with patient. Patient verbalizes understanding. Copy given to patient to take home. Discharged via wheelchair to private car for ride home. PT OP SITES X [address] NO DRAINAGE NOTED INSTRUCTIONS GIVEN TO
--- NOTE | 2022-01-09 09:15 | NUR ---
Patient up to Ambulate independently. Gait steady. Discharge instructions reviewed with patient. Patient verbalizes understanding. Copy given to patient to take home. Discharged via wheelchair to private car for ride home. PT GIVEN 1 NORCO FOR INCREASING PAIN THAT IS NOW TOLERABLE PER PT. PT HAS TWO SITES THAT ARE CLEAR
== END 2022-01-09 23:03 | disposition home or self-care (01) ==
LOC: ORSCMMR 05:56 → ORD 07:30 → ORSCMMR 07:30
PROVIDERS: Surgery
PROC: 0JH60WZ Insertion of Totally Implantable Vascular Access Device into Chest Subcutaneous Tissue and Fascia, Open Approach (ICD-10-PCS; principal; 2022-01-09 07:30)
DX: C18.7 Malignant neoplasm of sigmoid colon (principal); C78.7 Secondary malignant neoplasm of liver and intrahepatic bile duct; I25.2 Old myocardial infarction; I10 Essential (primary) hypertension; Z79.899 Other long term (current) drug therapy
CPT/HCPCS: 77001; A9270; C1788; J0690; J1100; J1642; J2001; J2250; J2370; J2405; J2704; J3010; J7120

== ENCOUNTER 2022-09-19 12:18 | Day surgery (SDC) | payer OTHER ==
[~2022-09-19] VITALS: Ht 182.9 cm; Wt 87.1 kg
--- NOTE | 2022-09-19 15:21 | NUR ---
09/19/22 1521 RICO WEN PT WAS SCOPED RECTALLY FIRST AND THEN THROUGH THE STOMA.
[2022-09-19 15:25] VITALS: BP 128/81
[2022-09-20] MEDS ORDERED: NICO21TP (07:55)
== END 2022-09-19 15:35 | disposition home or self-care (01) ==
LOC: ORSCSDS 12:18
PROVIDERS: Surgery
PROC: 0DBM8ZX Excision of Descending Colon, Via Natural or Artificial Opening Endoscopic, Diagnostic (ICD-10-PCS; principal; 2022-09-19 14:00)
PROC: 0DBP8ZX Excision of Rectum, Via Natural or Artificial Opening Endoscopic, Diagnostic (ICD-10-PCS; principal; 2022-09-19 14:00)
DX: Z85.038 Personal history of other malignant neoplasm of large intestine (principal); K62.1 Rectal polyp; D12.4 Benign neoplasm of descending colon; Z93.3 Colostomy status; I21.9 Acute myocardial infarction, unspecified; I10 Essential (primary) hypertension; F17.210 Nicotine dependence, cigarettes, uncomplicated; Z79.82 Long term (current) use of aspirin; Z79.899 Other long term (current) drug therapy
CPT/HCPCS: 88305; J2250; J2704; J7120

== ENCOUNTER 2022-09-20 06:02 | Inpatient (IN) | payer OTHER ==
[~2022-09-20] VITALS: Ht 182.9 cm; Wt 91.6 kg
[2022-09-20] VITALS (22 sets, daily range): BP systolic 116–147; BP diastolic 79–96
[2022-09-20] MEDS ORDERED: NICO21TP (07:55)
--- NOTE | 2022-09-20 10:14 | NUR ---
NICODERM PATCH REMOVED FROM UPPER RIGHT ARM PER DR. GREER REQUEST. WILL RE START IN PACU PER ORDERS
--- NOTE | 2022-09-20 16:41 | NUR ---
SHIFT SUMMARY/POST OP NOTE: POD 0 COLOSTOMY CLOSURE PATIENT IS A&OX4. VS ARE WNL AND IS ON RA. PAIN IS MANAGED SO FAR WITH IV DILAUDID BUT ALSO HAS OXY PRN. HE IS TOLERATING SMALL AMOUNTS OF CLEAR LIQUIDS PO INTAKE. ABD HAS 4 LAP SITES THAT ARE C/D/I. BOWEL TONES ARE HYPOACTIVE. SULLIVAN IS DRAINING PER GRAVITY WITH LIGHT YELLOW URINE. PATIENT DENIES NAUSEA OR VOMITING AT THIS TIME. PATIENT CALLS APPROPRIATELY. HE IS LAYING IN BED WITH CALL LIGHT IN REACH.
[2022-09-21 04:33] VITALS: BP 125/90
[2022-09-21 05:20] LABS: Hematocrit 43.4 % (37.0-53.0); Hemoglobin 14.6 g/dL (13.5-17.5); Mean Corpuscular HGB 34.2 pg (26.0-34.0); Mean Corpuscular HGB Conc 33.6 g/dL (31.5-36.5); Mean Corpuscular Volume 102 fL (80-100); Mean Platelet Volume 9.5 fL (9.1-12.4); Platelet Count 273 K/mm3 (150-400); RDW Standard Deviation 48.7 fL (35.1-46.3); Red Blood Cell Count 4.27 M/mm3 (4.30-5.90); White Blood Cell Count 12.88 K/mm3 (4.00-11.30)
[2022-09-21 05:33] LABS: Bun/Creatinine Ratio 8.9 (12.0-20.0); Calcium, Blood 8.8 mg/dL (8.5-10.1); Creatinine, Blood 0.68 mg/dL (0.60-1.20); Magnesium, Blood 2.1 mg/dL (1.6-2.4); Potassium, Blood 3.7 mmol/L (3.5-5.5)
--- NOTE | 2022-09-21 06:32 | NUR ---
SUMMARY PT REPORTS PASSING FLATUS.VERB SLEPT WELL.
[2022-09-21 07:21] VITALS: BP 132/90
--- NOTE | 2022-09-21 13:21 | NUR ---
PT REPORTED "PUSHED TOO HARD" TRYING TO HAVE BM IS HAVING INCREASED PAIN. WAS MEDICATED PER ORDERS FOR PAIN SHORTLY PRIOR TO INCIDENT. PT COACHED ON RELAXATION BREATHING. DECLINED OFFER OF ICE OR HEAT TO ABD. STATES JUST WANTS TO REST IN BED. SO BEDSIDE. CALL LIGHT IN REACH.
[2022-09-21] MEDS ORDERED: OXAYDO5 M1 PO (14:19)
[2022-09-21 14:48] VITALS: BP 127/91
--- NOTE | 2022-09-21 14:56 | NUR ---
DISCHARGED PT'S PAIN MUCH IMPROVED WHEN DR ORDONEZ ROUNDED. DC ORDERS OBTAINED. DR ORDONEZ SENT PAIN MED SCRIPT ELECTRONICALLY TO [facility]. DC'D PATIENT'S IV, CATHETER INTACT. VSS. REVIEWED DC INSTRUCTIONS; PT VERBALIZED UNDERSTANDING. PT LEFT UNIT IN WC ACCOMPANIED BY SPOUSE WITH POSSESSIONS AND DC PAPERWORK IN HAND.
== END 2022-09-21 14:58 | disposition home or self-care (01) | DRG 330 ==
LOC: SURS 06:02 → PRE IP 07:30 → SURS 13:43
PROVIDERS: ADMIT Surgery
PROC: 0DBN4ZZ Excision of Sigmoid Colon, Percutaneous Endoscopic Approach (ICD-10-PCS; principal; 2022-09-20 09:00)
DX: Z43.3 Encounter for attention to colostomy (principal); C18.7 Malignant neoplasm of sigmoid colon; C78.7 Secondary malignant neoplasm of liver and intrahepatic bile duct; I10 Essential (primary) hypertension; L72.3 Sebaceous cyst; F17.210 Nicotine dependence, cigarettes, uncomplicated; F10.90 Alcohol use, unspecified, uncomplicated; I25.10 Atherosclerotic heart disease of native coronary artery without angina pectoris; J44.9 Chronic obstructive pulmonary disease, unspecified; F12.90 Cannabis use, unspecified, uncomplicated; K66.0 Peritoneal adhesions (postprocedural) (postinfection); Z98.890 Other specified postprocedural states; I25.2 Old myocardial infarction; Z79.82 Long term (current) use of aspirin; Z79.811 Long term (current) use of aromatase inhibitors; Z79.899 Other long term (current) drug therapy
CPT/HCPCS: 36415; 80048; 83735; 85027; A9270; J0694; J1100; J1170; J1644; J1650; J1885; J2405; J2704; J3010; J7120

== ENCOUNTER 2024-05-05 04:17 | Inpatient (IN) | payer OTHER ==
[~2024-05-05] VITALS: Ht 182.9 cm; Wt 69.5 kg
[2024-05-05] VITALS (41 sets, daily range): BP systolic 75–116; BP diastolic 59–77
[~2024-05-05 04:17] MED LIST changes: +HYDR1TAB94; +METOPROLOL TART5010 PO; +NICO21TP; +OXAYDO5 M1 PO; +PROM25 PO
[2024-05-05] MEDS ORDERED: Albuterol 2.5 MG/3 ML VIAL INH SCH (04:25)
[2024-05-05] MEDS ORDERED: Vancomycin HCL 1,000 MG in NS 250 ML IV ONE (04:40)
[2024-05-05] MEDS ORDERED: NS 1,000 ML IV SCH ×4 (04:40→05:20)
[2024-05-05] MEDS ORDERED: Digoxin 0.25 MG/ML 2ML Amp IV ONE (04:40)
[2024-05-05] MEDS ORDERED: Piperacillin/Tazobactam Sod 4.5 GM in NS 100 ML IV ONE (04:40)
[2024-05-05 04:46] LABS: Hematocrit 42.4 % (37.0-53.0); Hemoglobin 14.4 g/dL (13.5-17.5); Mean Corpuscular HGB 35.3 pg (26.0-34.0); Mean Corpuscular Volume 104 fL (80-100); Mean Platelet Volume 10.6 fL (9.1-12.4); Platelet Count 243 K/mm3 (150-400); RDW Coefficient Variation 15.9 % (11.7-14.2); RDW Standard Deviation 61.1 fL (35.1-46.3); Red Blood Cell Count 4.08 M/mm3 (4.30-5.90); White Blood Cell Count 20.13 K/mm3 (4.00-11.30)
[2024-05-05 04:48] LABS: PO2 Arterial 67.5 mmHg (80-100); pH Blood Arterial 7.33 (7.35-7.45)
[2024-05-05] MEDS ORDERED: FLU VACC TS2024-25(6MOS UP)/PF 45 MCG/0.5 ML SYRINGE IM ONE ×2 (05:05)
[2024-05-05] MEDS ORDERED: Ipratropium/Albuterol SulF 2.5-0.5MG/3 ML Amp INH PRN ×2 (05:05→05:20)
[2024-05-05] MEDS ORDERED: Ondansetron HCl 2 MG / ML 2ML Vial IV PRN ×2 (05:05→05:20)
[2024-05-05 05:06] LABS: Albumin, Blood 2.1 g/dL (3.4-5.0); Albumin/Globulin Ratio 0.4 (0.8-1.8); Bilirubin, Total 0.6 mg/dL (0.1-1.0); Bun/Creatinine Ratio 46.9 (12.0-20.0); Calcium, Blood 11.2 mg/dL (8.5-10.1); Creatinine, Blood 0.68 mg/dL (0.60-1.20); Potassium, Blood 3.2 mmol/L (3.5-5.5); Total Protein, Blood 7.1 g/dL (6.4-8.2)
[2024-05-05 05:13] LABS: BAND PERCENT MAN 22 % (0-8); BASOPHILS PERCENT MAN 0 % (0-2); EOSINOPHILS PERCENT MAN 0 % (0-6); LYMPHOCYTES ABSOLUTE MAN 2.01 K/mm3 (0.84-5.20); LYMPHOCYTES PERCENT MAN 10 % (21-46); MONOCYTES ABSOLUTE MAN 2.01 K/mm3 (0.16-1.47); MONOCYTES PERCENT MAN 10 % (4-13); SEG NEUTROPHILS PERCENT MAN 58 % (41-73); TOTAL CELLS COUNTED 100
[2024-05-05 05:43] LABS: Influenza A, PCR NEGATIVE (NEGATIVE); Influenza B, PCR NEGATIVE (NEGATIVE); Resp Syncytial Virus, PCR NEGATIVE (NEGATIVE); SARS-Cov-2 (COVID-19) PCR, MMC NEGATIVE (NEGATIVE)
[2024-05-05] MEDS ORDERED: Potassium Chloride 40 MEQ in NS 250 ML IV ONE (06:00)
[2024-05-05] MEDS ORDERED: Albumin (Human) 25gm/100ml 100 ML IV ONE (06:05)
[2024-05-05] MEDS ORDERED: Vancomycin HCL 1,500 MG in NS 250 ML IV ONE (06:10)
[2024-05-05] MEDS ORDERED: dexmedeTOMIDine 100 ML IV SCH (06:30)
[2024-05-05] MEDS ORDERED: MethylPREDNISolone Sod Succ 125 MG Vial IV SCH (07:00)
--- NOTE | 2024-05-05 07:06 | NUR ---
PT ARRIVES TO ICU ROOM 10 AT APPROX 0550 PT ALERT, ON CPAP 10/100%. LUNG SOUNDS COARSE AND DIM IN BASES. PT TACHY RATE OF 120S ON CONTINUOUS MONITOR. BP SOFT, LEVO ON STAND BY. PT NOT TOLERATING CPAP MASK- ORDERS TO START PRECEDEX DRIP RECIEVED. INITIATED AT 0.2MCG/KG/HR. PT PALE AND COOL, SKIN TO BACKSIDE AND KNEES MOTTLED. PT , JESICA TO BEDSIDE. PLAN OF CARE ONGOING.
[2024-05-05] MEDS ORDERED: Enoxaparin 40 MG/0.4 ML SYR SC SCH ×2 (09:00)
[2024-05-05] MEDS ORDERED: Piperacillin/Tazobactam Sod 4.5 GM in NS 100 ML IV SCH (10:00)
--- NOTE | 2024-05-05 10:43 | NUR ---
0700 ASSUMED CARE OF PT WITH PT CONSENT. BEDSIDE REPORT RECIEVED FROM OUTGOING RNLUIS. PT RESTING IN BED, RESPIRATIONS EQUAL AND NON-LABORED, PT ON BI-PAP, PT ABLE TO COMMUNICATE NEEDS. FALL PRECAUTIONS IN PLACE. AT BEDSIDE.
--- NOTE | 2024-05-05 13:20 | NUR ---
Spiritual care visit conducted. Pt was asleep. Pt's spouse is friendly and actively engaging in conversation. Pt's spouse describes long history of medical complications including a begum with colon cancer as well as a bout of pneumonia. Pt describes many difficulty but responds to them with gratitude for the attentive healhcare provided on numerous visits. This prepress manager encouraged pt's spouse to continue cultivating gratitude. Spiritual assessment conducted. Provided compassionate and non-judgemental listening and demonstrated an understanding of pt's spouse's incense burning practices and provided space for pt's spouse to examine her beliefs and practices. Pt grew up confucianism but no longer practices or attends hindu. Pt's spouse is not necessarily relgious but reports being raising in a [place] background and is . Pt's spouse feels deeply connected to the "creator" via observations of natural phenomea. Pt's spouse derives "power" from things such as the sunset or nature. Pt's spouse does not immediate family to connect with locally but reports feeling supported by a large "virtual family." Prayer offered. Pt's spouse expressed gratitude and thanked me for prayer and visit and verbalized being eager for this prepress manager to visit with spouse when they're awake.
--- NOTE | 2024-05-05 13:35 | NUR ---
REASSESSMENT PT REMAINS ALERT AND ORIENTED. HIS MAP HAS MAINTAINED ABOVE 65 WITHOUT STARTING THE LEVOPHED. HR HAS ALSO DECREASED AND IS IN THE 80S. PT STATES HE IS FEELING MUCH BETTER. LUGNS CONTINUE TO BE COARSE AND HAVE SOME WHEEZES. PRODUCTIVE COUGH, BUT PT HAS NOT BEEN ABLE TO SPIT THE SPUTUM OUT YET. HE HAS BEEN OFF OF CPAP AND ON 11-13L OXYMASK FOR ABOUT 3 HOURS. NO VOID THIS MORNING. BLADDER SCAN SHOWED 560ML AND PT UNABLE TO VOID SO STRAIGHT CATH FOR 650ML. PT'S WAS AT THE BEDSIDE THROUGH THE MORNING AND UPDATED THROUGHOUT.
[2024-05-05] MEDS ORDERED: Lactated Ringer's 1,000 ML IV SCH (16:05)
[2024-05-05] MEDS ORDERED: Lactated Ringer's 1,000 ML IV ONE (16:05)
[2024-05-05] MEDS ORDERED: Ipratropium/Albuterol SulF 2.5-0.5MG/3 ML Amp INH SCH (16:20)
[2024-05-05] MEDS ORDERED: Vancomycin HCL 1,000 MG in NS 250 ML IV SCH (18:00)
--- NOTE | 2024-05-05 18:38 | NUR ---
END OF SHIFT- PT REPOSITIONED, ABX TX ONGOING, SEE BENITO, PT COMMUNICATING NEEDS,SAFETY MEASURES IN PLACE, CALL LIGHT IN REACH, PLAN OF CARE ONGOING. BUTCH, RN ASSISTED WITH CARE OF PATIENT.
[2024-05-05] MEDS ORDERED: Lactobacil 2-S.Thermo-Bifido 1 1 Cap PO SCH (21:00)
[2024-05-06] VITALS (45 sets, daily range): BP systolic 87–143; BP diastolic 57–93
[2024-05-06 03:40] LABS: Hematocrit 29.5 % (37.0-53.0); Mean Corpuscular HGB 34.7 pg (26.0-34.0); Mean Corpuscular HGB Conc 33.9 g/dL (31.5-36.5); Mean Corpuscular Volume 102 fL (80-100); Mean Platelet Volume 9.9 fL (9.1-12.4); Platelet Count 198 K/mm3 (150-400); RDW Standard Deviation 59.7 fL (35.1-46.3); Red Blood Cell Count 2.88 M/mm3 (4.30-5.90)
[2024-05-06 03:59] LABS: BAND PERCENT MAN 25 % (0-8); BASOPHILS PERCENT MAN 0 % (0-2); EOSINOPHILS PERCENT MAN 0 % (0-6); LYMPHOCYTES ABSOLUTE MAN 0.34 K/mm3 (0.84-5.20); LYMPHOCYTES PERCENT MAN 3 % (21-46); MONOCYTES ABSOLUTE MAN 0.68 K/mm3 (0.16-1.47); MONOCYTES PERCENT MAN 6 % (4-13); NEUTROPHILS ABSOLUTE MAN 10.37 K/mm3 (1.96-9.15); SEG NEUTROPHILS PERCENT MAN 66 % (41-73); TOTAL CELLS COUNTED 100
[2024-05-06 04:01] LABS: Bun/Creatinine Ratio 71.4 (12.0-20.0); Calcium, Blood 9.3 mg/dL (8.5-10.1); Creatinine, Blood 0.35 mg/dL (0.60-1.20); Magnesium, Blood 1.6 mg/dL (1.6-2.4); Phosphorus, Blood 2.4 mg/dL (2.5-4.9); Potassium, Blood 3.3 mmol/L (3.5-5.5)
[2024-05-06] MEDS ORDERED: Potassium Phosphate Dibasic 20 MM in Dextrose 5% 500 ML IV ONE (05:30)
--- NOTE | 2024-05-06 07:35 | NUR ---
NOC SHIFT SUMMARY PT ORIENTED AND COOPERATIVE W/ CARE. WAS ANXIOUS T/O NIGHT AND WOULD CALL OUT. COMPLAINTS OF NOT GETTING ENOUGH AIR- ENDORSES ANXIETY. PRECEDEX DRIP INITIATED AT 0.2MCG/KG/HR W/ GOOD EFFECT. PT NSR, RATE OF 70S. BP STABLE. LUNGS REMAIN COARSE W/ PRODUCTIVE COUGH. PT TOLERATING AIRVO WELL, SEE RT NOTES FOR SETTINGS. NO BM THIS SHIFT. PT STRAIGHT CATHED FOR RETENTION AND TOLERATED POORLY. SEVERE PAIN UPON INSERTION- NO RESISTANCE FELT. NO BLOOD IN URINE. REQUESTED WATER FREQUENTLY- POSSIBLE ASPIRATION [facility]. PT DECLINED PO MEDICAITON. PT AFEBRILE DURING SHIFT. PLAN OF CARE ONGOING.
[2024-05-06] MEDS ORDERED: Lidocaine 2% Jelly Uro-Jet TOP PRN (09:05)
[2024-05-06] MEDS ORDERED: OLAN2.5 PO (11:05)
[2024-05-06] MEDS ORDERED: OXYC10TA19 PO (11:06)
--- NOTE | 2024-05-06 11:21 | NUR ---
Met with pt's Magalie at bedside. Pt intermittently waking, moans and grimaces. Asked about pain, pt said, "Yes, ma'am. I'm having chest and all over pain. I could use some pain medication." Pt has no pain medication ordered currently. Per , takes 20mg oxycodone up to 2 times daily as needed. Med rec completed. Discussed with bedside RN, and phone call placed to hospitalist regarding pain, and nothing currently for pain on JUN. Pt's is tearful, states she is beginning the mourning process. She states she knows the patient's health is declining faster over the past few weeks, states his appetite has decreased, he is sleeping more. She wants to continue to honor his wish for intubation if needed. Pt is currently not oriented to place or time. Palliative Care will remain available, will continue offering support to patient and .
[2024-05-06] MEDS ORDERED: Morphine Sulfate 10 MG/ML 1MLSYR INH ONE (12:05)
[2024-05-06] MEDS ORDERED: LORazepam 2 MG/ML 1ML Injection IV PRN (13:10)
[2024-05-06] MEDS ORDERED: OxyCODONE HCL 5 MG TAB PO PRN (13:15)
[2024-05-06] MEDS ORDERED: Promethazine HCl 25 MG Tab PO PRN (13:15)
[2024-05-06] MEDS ORDERED: Lactated Ringer's 1,000 ML IV SCH (14:00)
[2024-05-06] MEDS ORDERED: Thiamine HCl 100 MG Tab PO SCH (14:00)
[2024-05-06] MEDS ORDERED: Folic Acid 1 MG TAB PO SCH (14:00)
[2024-05-06] MEDS ORDERED: Vancomycin HCL 1,250 MG in NS 250 ML IV SCH (18:00)
[2024-05-06 18:09] LABS: Vancomycin, Trough 11.5 ug/mL (5.0-10.0)
[2024-05-06] MEDS ORDERED: BusPIRone HCl 5 MG Tab PO SCH (21:00)
[2024-05-06] MEDS ORDERED: OLANZapine 5 MG Tab PO SCH (21:00)
--- NOTE | 2024-05-06 21:00 | NUR ---
ASSUMPTION OF CARE CARE OF PT ASSUMED AT 1900 AFTER RECEIPT OF REPORT FROM DAY RN. PT SLEEPING, AWAKES TO VOICE AND ORIENTED TO SELF. WILL ASSESS FURTHER ORIENTATION DURING SEDATION VACATION. PRECEDEX INFUSING AT 0.4. REPORTEDLY PT HAS BEEN IN PAIN. HE TAKES 20MG Q 4 OXYCODONE AT HOME AND IS PRESCRIBED TO 10MG HERE. WILL TREAT ACCORDINGLY. HR NSR IN THE 70'S WITH MAP OF 101. LR INFUSING AT 75. PT SATURATIONS > 94% ON 3L NC. AIRVO IS IN THE ROOM, MOST RECENT SETTING OF 40/40, IF NEEDED OR PT ABLE TO TOLERATE. NO CHEST PAIN OR SOB. PT HAS THICK LIN SECRETIONS BEING EXPECTORATED INTO ORAL CAVITY; WILL SUCTION NEEDED. SULLIVAN PATENT AND DRAINING- IN PLACE FOLLOWING A FEW PAINFUL STRAIGHT CATHERIZATIONS. CALL LIGHT IS NEARBY.
[2024-05-07] VITALS (28 sets, daily range): BP systolic 105–155; BP diastolic 72–105
[2024-05-07] MEDS ORDERED: FentaNYL Citrate 50 MCG/ML 2 ML Injection IV PRN (02:45)
[2024-05-07 03:21] LABS: Hematocrit 31.2 % (37.0-53.0); Hemoglobin 11.1 g/dL (13.5-17.5); Mean Corpuscular HGB 35.7 pg (26.0-34.0); Mean Corpuscular HGB Conc 35.6 g/dL (31.5-36.5); Mean Corpuscular Volume 100 fL (80-100); Mean Platelet Volume 9.8 fL (9.1-12.4); Platelet Count 178 K/mm3 (150-400); RDW Coefficient Variation 15.9 % (11.7-14.2); RDW Standard Deviation 59.2 fL (35.1-46.3); Red Blood Cell Count 3.11 M/mm3 (4.30-5.90); White Blood Cell Count 11.64 K/mm3 (4.00-11.30)
[2024-05-07 03:38] LABS: Albumin, Blood 1.7 g/dL (3.4-5.0); Anion Gap 12 mmol/L (3-11); Blood Urea Nitrogen 19 mg/dL (8-24); Bun/Creatinine Ratio 46.6 (12.0-20.0); CO2, Blood 22 mmol/L (21-32); Calcium, Blood 9.6 mg/dL (8.5-10.1); Chloride, Blood 108 mmol/L (98-108); Creatinine, Blood 0.41 mg/dL (0.60-1.20); Glomerular Filtration Rate 128 (60-); Glucose, Blood 118 mg/dL (70-99); Phosphorus, Blood 2.6 mg/dL (2.5-4.9); Potassium, Blood 3.5 mmol/L (3.5-5.5); Sodium, Blood 138 mmol/L (136-145)
[2024-05-07 04:01] LABS: BAND PERCENT MAN 7 % (0-8); BASOPHILS PERCENT MAN 0 % (0-2); EOSINOPHILS PERCENT MAN 0 % (0-6); LYMPHOCYTES ABSOLUTE MAN 0.46 K/mm3 (0.84-5.20); LYMPHOCYTES PERCENT MAN 4 % (21-46); MONOCYTES ABSOLUTE MAN 0.46 K/mm3 (0.16-1.47); MONOCYTES PERCENT MAN 4 % (4-13); SEG NEUTROPHILS PERCENT MAN 85 % (41-73); TOTAL CELLS COUNTED 100
--- NOTE | 2024-05-07 07:53 | NUR ---
PT SOMNOLENT, OPENS EYES AND RESPONDS TO VOICE AND ORIENTED TO SELF. PRECEDEX INFUSING AT 0.2. PT IS IN PAIN, MOSTLY IN HIS STOMACH. FENTANYL WAS ORDERED DURING SHIFT DUE TO SWALLOWING/ASPIRATION CONCERNS AND THE 25MCG IS NOT LASTING THE 4 HOURS BETWEEN POTENTIAL DOSES. HR NSR IN THE 70'S WITH MAP OF 101. LR INFUSING AT 75. PT SATURATIONS > 90% ON RA SINCE 299. NO CHEST PAIN OR SOB. PT HAS THICK LIN SECRETIONS BEING EXPECTORATED INTO ORAL CAVITY; WAS ONLY ABLE TO SUCTION A SMALL AMOUNT DURING SHIFT. SULLIVAN PATENT AND DRAINING- IN PLACE FOLLOWING A FEW PAINFUL STRAIGHT CATHERIZATIONS. CALL LIGHT IS NEARBY. REPORT GIVEN TO ONCOMING NURSE.
--- NOTE | 2024-05-07 10:44 | NUR ---
Spiritual Care Visit. Pt. is resting. spouse is at bedside and welcomes my visit. Introductions are made and a life review is facililtated. After a short time other staff arrived. Spouse and this assistant county engineer agreed to have me return again later in the day.
[2024-05-07] MEDS ORDERED: Lactated Ringer's 1,000 ML IV SCH (12:00)
--- NOTE | 2024-05-07 17:03 | NUR ---
SPOKE TO NATHALIA THIS MORNING. DISCUSSED GOALS OF CARE WITH FOR SPOUSE TAE WITH HER. PER NATHALIA SHE WISHES TO GET TAE WELL ENOUGH HE CAN GO HOME AND BE ABLE TO AT LEAST BE ABLE TO EAT A LITTLE AND INTERACT WITH HER WITH WATCHING TV STATING "WATCH ONE MORE FOOTBALL GAME WITH ME". AT TIME OF VISIT PT [facility] BUT HIS OXYGEN SATS DROPPED TO 80'S WHEN TRANSFERRED TO [facility] FOR THE TEST AND WAS NOT ABLE TO TOLERATE SO HE DID NOT END UP GOING TO GET TEST. IT WAS POSTPONED UNTIL TOMORROW. THIS LED INTO A DISCUSSION OF WHAT PT AND SHE WOULD WANT IF HE IS UNABLE TO BE ABLE TO EAT OR DRINK FLUIDS. DISCUSSED OPTIONS OF HOSPICE CARE AT HOME VS. NG TUBE OR IV NUTRITION WHICH SHE INDICATED WAS DISCUSSED WITH HER BY SPEECH THERAPY. NATHALIA STATED SHE DOES NOT WANT HIM TO HAVE A NG TUBE BUT SHE HAS NOT RULED IT OUT. DISCUSSED CONCERNS OF POSSIBILITY HER MAY NOT TOLERATE TUBE FEEDINGS AND IT WOULD BE VERY SLOW PROGRESS DUE TO HIS POOR ORAL INTAKE PRIOR TO HOSPITALIZATION. I ASKED NATHALIA IF SHE WOULD BE AGREEABLE TO HOSPICE AT HOME IF HE DOES NOT RECOVER FROM HIS CURRENT ILLNESS. NATHALIA INDICATED SHE WOULD NOT BE ABLE TO TAKE CARE OF HIM AT HOME. WE DISCUSSEED OPTIONS OF FOSTER CARE. SHE IS INDECISIVE AT THIS TIME. NATHALIA WAS GIVEN BOOKLETS, 'CONSIDERING COMFORT CARE' AND 'HARD CHOICES FOR LOVING PEOPLE'. DIRECTED HER TO SOME PAGES TO READ AND LET HER KNOW IF SHE HAD ANY QUESTIONS TO PLEASE REACH OUT.
--- NOTE | 2024-05-07 17:50 | NUR ---
SUMMARY PT A/O TO SELF. HAS BEEN CALM ALL DAY UNTIL THIS EVENING, NOW HE IS PICKING AT LINES AND ATTEMPTING OOB. EASILY REDIRECTED. THIS AFTERNOON PT WAS GOING FOR A BARRIUM SWALLOW TEST WHEN HIS SPO2 DROPPED TO 80% WHILE ON 2L NC FOR TRANSFER TO [facility]. PLACED OXYMASK AT 15L. ONCE PT WAS SETTLED BACK IN BED HE WAS TITRATED BACK DOWN TO 4L NC. SOMETIMES PT DOESN'T HAVE O2 ON AND SPO2 STILL READING 89%. BARRIUM SWALLOW TEST WAS NEVER DONE. WILL ATTEMPT AGAIN TOMORROW. NO OTHER ACUTE CHANGES THIS SHIFT. WILL BE TRANSFERING PT TO ROOM 347.
--- NOTE | 2024-05-07 18:57 | NUR ---
CALLED JESICA TO NOTIFY HER OF ROOM CHANGE. CELL PHONE IS WITH PT BELONGINGS TAKEN WITH PT TO ROOM 347.
[2024-05-07] MEDS ORDERED: Mirtazapine 15 MG SoluTab PO SCH (21:00)
--- NOTE | 2024-05-07 23:05 | NUR ---
05/07/242219 PATIENT FOUND ON THE GROUND WITH HEAD RESTING ON BED FRAME. PT STATES HE LOST HIS BALANCE. PT HAS BEEN BEDREST. ( PT IN NEXT ROOM WAS YELLING OVER AN EXTENDED AMOUNT OF TIME. PT WAS TRYING TO GET AWAY FROM THE NOISE.) PT WAS ASSISTED BACK TO BED. DOES SAY HE HIT IS HEAD AND THAT HIS BACK HURTS. SOME FINE REDMARKS TO RT UPPER AND MID BACK. RT EYEBROW SL SWOLLEN. VERY TINY SKIN TEAR LEFT ELBOW. PT IS SLOW TO RESPOND BUT ALERT TO SELF AND WHERE HE IS. SAID MANUEL WAS PRESIDENT. VITAL SIGNS ELEVATED, INCREASED O2 NEEDS AFTER FALL. DR. BLOOM NOTIFIED. ASKED TO MONITOR FOR MENTAL CHANGES, NAUSIA AND VOMITING.
[2024-05-08] MEDS ORDERED: Piperacillin/Tazobactam Sod 4.5 GM in NS 100 ML IV SCH
[2024-05-08 04:13] VITALS: BP 152/97
[2024-05-08 04:15] VITALS: BP 152/97
[2024-05-08] MEDS ORDERED: NS 500 ML IV ONE (06:03)
--- NOTE | 2024-05-08 06:22 | NUR ---
SHIFT SUMMARY PT TRANSFERED TO ROOM AT APPROX 1850. ACUTE HYPOXEMIC RESPIRATORY FAILURE. PT VERY AGITATED AND XIOUS, PULLING AT LINES AND WANTING TO GET OUT OF BED. PT HAD FALL. (SEE NOTE) PT NOT COMPLIANT WITH CONT PULSE OX. TRIED O2 MASK AND WAS NOT SUCESSFULL. PT IS A/O TIMES 2. PT HAS SULLIVAN. BED IN LOW POSITION, CALL LIGHT WITHIN REACH, RAILS TIMES 2.
[2024-05-08 06:25] LABS: Hematocrit 32.6 % (37.0-53.0); Hemoglobin 11.3 g/dL (13.5-17.5); Mean Corpuscular HGB 34.9 pg (26.0-34.0); Mean Corpuscular HGB Conc 34.7 g/dL (31.5-36.5); Mean Corpuscular Volume 101 fL (80-100); Platelet Count 160 K/mm3 (150-400); RDW Coefficient Variation 16.3 % (11.7-14.2); RDW Standard Deviation 60.1 fL (35.1-46.3); Red Blood Cell Count 3.24 M/mm3 (4.30-5.90); White Blood Cell Count 17.78 K/mm3 (4.00-11.30)
[2024-05-08 06:43] LABS: Albumin, Blood 1.8 g/dL (3.4-5.0); Anion Gap 11 mmol/L (3-11); Blood Urea Nitrogen 12 mg/dL (8-24); Bun/Creatinine Ratio 33.3 (12.0-20.0); CO2, Blood 25 mmol/L (21-32); Calcium, Blood 9.6 mg/dL (8.5-10.1); Chloride, Blood 105 mmol/L (98-108); Creatinine, Blood 0.36 mg/dL (0.60-1.20); Glomerular Filtration Rate 133 (60-); Glucose, Blood 74 mg/dL (70-99); Phosphorus, Blood 1.8 mg/dL (2.5-4.9); Potassium, Blood 2.8 mmol/L (3.5-5.5); Sodium, Blood 138 mmol/L (136-145)
[2024-05-08 06:48] LABS: BAND PERCENT MAN 4 % (0-8); BASOPHILS PERCENT MAN 0 % (0-2); EOSINOPHILS PERCENT MAN 0 % (0-6); LYMPHOCYTES ABSOLUTE MAN 1.06 K/mm3 (0.84-5.20); LYMPHOCYTES PERCENT MAN 6 % (21-46); MONOCYTES ABSOLUTE MAN 1.24 K/mm3 (0.16-1.47); MONOCYTES PERCENT MAN 7 % (4-13); NEUTROPHILS ABSOLUTE MAN 15.46 K/mm3 (1.96-9.15); SEG NEUTROPHILS PERCENT MAN 83 % (41-73); TOTAL CELLS COUNTED 100
[2024-05-08 07:40] VITALS: BP 153/95
[2024-05-08] MEDS ORDERED: Potassium Chl 20MEQ/Water100ML 100 ML IV SCH (08:50)
[2024-05-08] MEDS ORDERED: HYDROmorphone HCl/Pf 1MG SYR IV PRN (09:55)
[2024-05-08] MEDS ORDERED: TPN Consult Notification XX ONE (10:30)
[2024-05-08] MEDS ORDERED: Potassium Phosphate Dibasic 30 MM in Dextrose 5% 500 ML IV SCH (13:00)
[2024-05-08 14:59] VITALS: BP 124/91
--- NOTE | 2024-05-08 15:52 | NUR ---
Spiritual Care Visit. Pt. is somnolent and mostly not responsive during my visit. Spouse is at bedside. Facilitated an update, and spouse verbalized some of the pressure she felt on the previous day having to make comfort care decisions on behalf. Listen with empathy while seeking to normalize the Pt./family experience. Spouse displayed evidence of understanding. Prayed with the Spouse, and blessed the Pt. Spouse verbalized gratitude for the spiritual care visit and welcomed this pointer machine operator to return.
[2024-05-08] MEDS ORDERED: Parenteral Electolytes 40 ML,Potassium Phosphate Dibasic 30 MM,Multivitamins 10 ML,ZINC... IV SCH (17:00)
[2024-05-08] MEDS ORDERED: NS 500 ML IV SCH (17:10)
[2024-05-08 17:35] LABS: Vancomycin, Trough 15.5 ug/mL (5.0-10.0)
--- NOTE | 2024-05-08 18:35 | NUR ---
SHIFT SUMMARY PT WITHDRAWN AND SLEEPING MAJORITY OF SHIFT, WAKING TO VERBAL STIMULI OR TO REPORT PAIN. FENTANYL INEFFECTIVE IN MANAGING PT PAIN, SWITCHED TO DILAUDID PER PROIVDER ORDERS. PAIN MOST CONTROLLED WITH ALTERNATING DILAUDID AND ATIVAN. REPOSITIONING PT TO SIDE AND PROVIDING WARM BLANKETS ALSO PROVIDES PT COMFORT. SPEECH THERAPY COMPLETED ASSESSMENT, RECOMMENDS KEEPING PT NPO AND PLAN FOR BARRIUM SWALLOW STUDY 05/09/24. PT STARTED ON TPN. MEDIPORT ON RCW ACCESSED WITH NO BLOOD RETURN, VERFIED PLACEMENT VIA CHEST X-RAY. ASSESSMENT COMPLETE. PT MEDICATED PER EMAR. PT CURRENTLY RESTING IN HOSPITAL BED ON HIS RIGHT SIDE WITH R SIDE RAILS UP, BED ALARM ON, AND CALL LIGHT WITHIN REACH AND BED IN LOWEST POSITION.
[2024-05-08 19:28] VITALS: BP 144/90
[2024-05-09 03:24] VITALS: BP 163/78
[2024-05-09 05:32] LABS: BASOPHILS ABSOLUTE AUTO 0.03 K/mm3 (0.00-0.23); BASOPHILS PERCENT AUTO 0 % (0-2); EOSINOPHILS ABSOLUTE AUTO 0.02 K/mm3 (0.00-0.68); EOSINOPHILS PERCENT AUTO 0 % (0-6); Hemoglobin 10.8 g/dL (13.5-17.5); IMMATURE GRAN PERCENT AUTO 1 % (0-1); LYMPHOCYTES ABSOLUTE AUTO 1.26 K/mm3 (0.84-5.20); LYMPHOCYTES PERCENT AUTO 7 % (21-46); MONOCYTES ABSOLUTE AUTO 1.12 K/mm3 (0.16-1.47); MONOCYTES PERCENT AUTO 6 % (4-13); Mean Corpuscular HGB 35.1 pg (26.0-34.0); Mean Corpuscular HGB Conc 34.8 g/dL (31.5-36.5); Mean Corpuscular Volume 101 fL (80-100); Mean Platelet Volume 10.6 fL (9.1-12.4); NEUTROPHILS ABSOLUTE AUTO 15.42 K/mm3 (1.96-9.15); NEUTROPHILS PERCENT AUTO 85 % (41-73); Platelet Count 134 K/mm3 (150-400); RDW Coefficient Variation 16.4 % (11.7-14.2); RDW Standard Deviation 60.4 fL (35.1-46.3); Red Blood Cell Count 3.08 M/mm3 (4.30-5.90); White Blood Cell Count 18.05 K/mm3 (4.00-11.30)
[2024-05-09 06:09] LABS: Magnesium, Blood 1.2 mg/dL (1.6-2.4)
[2024-05-09 06:10] LABS: Albumin, Blood 1.7 g/dL (3.4-5.0); Anion Gap 11 mmol/L (3-11); Blood Urea Nitrogen 8 mg/dL (8-24); Bun/Creatinine Ratio 25.4 (12.0-20.0); CO2, Blood 25 mmol/L (21-32); Chloride, Blood 100 mmol/L (98-108); Creatinine, Blood 0.32 mg/dL (0.60-1.20); Glomerular Filtration Rate 138 (60-); Glucose, Blood 94 mg/dL (70-99); Sodium, Blood 133 mmol/L (136-145); Triglycerides 89 mg/dL (30-160)
--- NOTE | 2024-05-09 06:26 | NUR ---
SHIFT SUMMARY PT ALERT AND ORIENTED TIMES 3 . PT ADMITTED FOR CELLULITIS BILATERAL LE S. PT IS ON 2L O2. PT HAS DUAL LEAD PACER. PT HAS BLACK ULCERS BILATERALLY ON TOE TOPS. BOTH HANDS APPEAR CYONOTIC WITH SLIGHT EDEMA. PT HAS RIGHT FOREARM IV. PT AT TIMES IS RECEPTIVE TO CARE AND THEN MOOD TURNS TO AGITATION AND AGGRESSION TOWARDS STAFF NOT RESPONDING TO HIS REQUESTS WITHIN HIS TIME FRAME. PT APPEARED TO SLEEP THOUGH THE NIGHT WITHOUT ISSUES. BED IN LOW POSITION, CALL LIGHT WITHIN REACH, RAILS TIMES 2.
--- NOTE | 2024-05-09 06:27 | NUR ---
SHIFT SUMMARY PT ALERT AND ORIENTED TIMES 2 . HIGH FALL RISK. PT ADMITTED FOR ACUTE HYPOXEMIC RESPIRATORY FAILURE. PT WHILE SPLEEPING CONSTANTLY GRABBING AT LINES, TAKING O2 MASK OFF, PULLING AT SULLIVAN, AND O2 OXIMETER. PT TRY S TO GET OUT OF BED AND IS CONFUSED. HE IS REDIRECTABLE. RECOMMENDING TO CHARGE NURSE ASSIGNING A SITTER FOR NIGHTS, PT HAS HAD ONE FALL ALREADY AND PT IS NOT COHERENT ENOUGH TO USE CALL LIGHT TO MAKE NEEDS KNOWN. BED IN LOW POSITION, CALL LIGHT WITHIN REACH, RAILS TIMES 3.
[2024-05-09 07:14] VITALS: BP 142/94
[2024-05-09] MEDS ORDERED: Potassium Chl 20MEQ/Water100ML 100 ML IV SCH (10:10)
[2024-05-09] MEDS ORDERED: Magnesium Sulf 2 GM/Water 50ML 50 ML IV ONE (10:10)
[2024-05-09] MEDS ORDERED: Acetaminophen 650 MG Supp PR PRN (11:25)
[2024-05-09] MEDS ORDERED: Lidocaine 4% 1 Patch TOP ONE (11:45)
[2024-05-09] MEDS ORDERED: Ketorolac Tromethamine 30mg Vial IV SCH (12:00)
[2024-05-09] MEDS ORDERED: TPN Consult Notification XX ONE (12:05)
--- NOTE | 2024-05-09 12:55 | NUR ---
Spiritual care visit conducted. Pt is unresponsive but occasionally awakes for short periods but doesn't seem to be lucid. Pt's spouse shows visible signs of emotional distress in the form of tears. Life review conducted. Pt's spouse recounts the cicumstances that lead to their meeting as well as family dynamics. Pt spouse reiterates throughout conversation that she is unclear about what exactly she needs in this ddifuclt times, or how she's supposed to feel. Provided compassionate listening and normalized pt's spouse's feelings and concerns and cultivated an atmosphere of calmness and openmindedness. Pt's spouse describes pt's adverse childhood experiences and how this likely contributed to some unhealthy habits in his life. In spite of this, pt's spouse reflects only upon positive aspects of their relationship. Pt's spouse is aware of "where this is going" and is determined to remain logical and dependable for pt and is therefore attempting to comparmentalize emotions in order to deal with them later. Pt feels supported by son that lives nearby as well as from virtual family. Pt expresses emotion in the form of tears and also expresses emotional release in the form of frequent laughter. Encouraged self-care in the form of proper sleep and nutrition. Pt's spouse maintains her confidence in "where she's going" following and is comforted by the sentiment that souls can be connected beyond . This domestic cleaner told pt's spouse to call if you need anything and pt's spouse verbally expressed gratitude with particular emphasis on the offering of emotional support in times of duress. Prayer offered. Pt's spouse thanked me for the prayer and visit and appeared uplifted by the long conversation and emotional support.
[2024-05-09 15:26] VITALS: BP 133/89
[2024-05-09] MEDS ORDERED: Parenteral Electolytes 40 ML,Potassium Phosphate Dibasic 30 MM,Multivitamins 10 ML,ZINC... IV SCH (17:00)
--- NOTE | 2024-05-09 17:54 | NUR ---
SHIFT SUMMARY PT REMAINS WITHDRAWN AND SLEEPING FOR MAJORITY OF SHIFT, RESPONSIVE TO VERBAL STIMULI AND PAINFUL STIMULI. ONE WORD RESPONSES AND OPENS EYES WITH STIMULI. DISCUSSION OCCURED WITH PROVIDER, CASE MANAGEMENT, RN, AND PT SPOUSE REGARDING PLAN OF CARE AND NEXT STEPS. SPOUSE WOULD LIKE TO CONTINUE WITH CURRENT POC AND SEE IF ANY IMPROVEMENT OCCURS OVER THE WEEKEND. SCHEDULED PAIN MEDICATIONS ORDERS WELL LIDOCAINE PATCH FOR UNCONTROLLED PAIN, DILAUDID REMAINS AVAILABLE PRN. PT TREATED PER EMAR. REMAINS NPO, BARRIUM SWALLOW RESCHEDULED FOR SUNDAY DUE TO PT INABILITY TO REMAIN ALERT AND AWAKE. CONTINUOUS PPN AT 94 ML/HR. PT ON 3 L/MIN VIA NC AND O2 SATURATION LEVELS REMAIN ABOVE 92%. PT SPOUSE AND SISTER BY BEDSIDE MAJOIRTY OF DAY. PT CURRENTLY RESTING IN HOSPITAL BED WITH HOSPITAL BED IN LOWEST POSITION, BED ALARM ON, AND CALL LIGHT WITHIN REACH - PT DOES NOT USE CALL LIGHT APPROPRIATELY.
[2024-05-09 20:56] VITALS: BP 140/89
[2024-05-10 03:07] VITALS: BP 139/80
[2024-05-10 06:52] LABS: Phosphorus, Blood 2.8 mg/dL (2.5-4.9)
--- NOTE | 2024-05-10 06:59 | NUR ---
SHIFT SUMMARY AT START OF SHIFT, PT SLEEPING, DIFFICULT TO AROUSE. CATH CARE PERFORMED. CHG BATH PERFORMED. PT MEDICATED THROUGH NIGHT FOR PAIN MANAGEMENT. APPROX 0550, PT ATTEMPTED TO GET OUT OF BED STATING HE NEEDED TO HAVE A BOWEL MOVEMENT. PT WAS TOLD TO STAY IN BED, HE HAD ALREADY HAD A MOVEMENT IN BRIEF. PT BLOOD DRAWN FOR AM LABS. PHARMACY CONTACTED TO VERIFY PPN CAN BE RUN WITH PIPERACILLIN. BOTH MEDS RUNNING CONCURRENTLY. PT SPUTUM SUCTIONED. PT HAS BEEN PLEASANT AND COOPERATIVE WITH CARE. PT SITTING ON BEDPAN, WILL RELAY TO DAY SHIFT RN.
[2024-05-10] MEDS ORDERED: Lidocaine 4% 1 Patch TOP SCH (09:00)
--- NOTE | 2024-05-10 15:32 | NUR ---
SUPPORT VISIT: PT IN BED EYES SHUT RR E/U. NO APPARENT DISTRESS. HE IS JAUNDICED IN APPEARANCE, CACHECTIC. O2 VIA NC IN PLACE. PT DOES NOT AWAKEN DURING VISIT. FLACC 2/10 DUE TO FROWNING WHILE RESTING. AND SISTER ARE PRESENT. GAVE EMOTIONAL SUPPORT AND ENCOURAGEMENT TO FAMILY. DENIED QUESTIONS OR NEEDS AT THIS TIME. REPORTED A BROTHER AND SISTER ARE GOING TO ARRIVE TODAY AND TOMORROW TO SEE PT. INDICATED YESTERDAY SHE IS NOT READY FOR COMFORT CARE UNTIL FAMILY HAS HAD TIME TO SEE PATIENT. PRIMARY RN DENIES ANY NEEDS AT THIS TIME.
[2024-05-10 15:57] VITALS: BP 134/87
--- NOTE | 2024-05-10 17:50 | NUR ---
SHIFT SUMMARY: PATIENT HAS HAD NO NEW CHANGES THIS SHIFT. PATIENT A/O TO SELF, LETHARGIC, BUT RESPONDS TO VERBAL AND PAINFUL STIMULI. PATIENT Q2 TURN, HAS MOTTLED SKIN TO BACK/COCCYX, MEDICATED FOR PAIN AND ANXIETY PER EMAR c MOD EFFECT. PATIENT STILL ON CONTINUES PPN INFUSING AT 94 MLS/HR. PATIENT HAS WEAK PRODUCTIVE COUGH, ORAL CARE AND SUCTIONED T/O SHIFT. PATIENT ON 3L O2 VIA NC, SATTING ABOVE 93%. PATIENT HAS SULLIVAN FOR RETENTION, PATENT DRAINING YELLOW URINE TO GRAVITY. PATIENT SPOUSE AND FAMILY AT BEDSIDE ON/OFF T/O SHIFT. VITAL SIGNS REVIEWED. BED ALARM ON FOR SAFETY. CALL LIGHT IN REACH.
[2024-05-10 19:34] VITALS: BP 146/79
[2024-05-11 02:41] VITALS: BP 147/98
[2024-05-11 05:59] LABS: Magnesium, Blood 1.8 mg/dL (1.6-2.4)
--- NOTE | 2024-05-11 07:14 | NUR ---
SHIFT SUMMARY AT START OF SHIFT, PT IN HIS BED WITH FAMILY AT BEDSIDE. PT SLEEPING AFTER FAMILY LEFT. HE WOKE APPROX 0430, ASKING WHEN HE COULD SPEAK TO THE DRILLING MACHINE OPERATOR . THIS RN REMINDED PT HE IS NOT IN SENIOR LIVING, HE IS IN THE HOSPITAL. APPROX 0600, PT HAD LARGE, LOOSE BM. PT MOVED TO RECLINER WHILE BEDDING, BRIEF, AND GOWN CHANGED. PT BACK IN BED. TEGADERM REPLACED OVER MEDIPORT. STERILE TECHNIQUE MAINTAINED.
[2024-05-11 07:26] VITALS: BP 153/96
[2024-05-11 10:40] LABS: BASOPHILS ABSOLUTE AUTO 0.03 K/mm3 (0.00-0.23); BASOPHILS PERCENT AUTO 0 % (0-2); EOSINOPHILS ABSOLUTE AUTO 0.09 K/mm3 (0.00-0.68); EOSINOPHILS PERCENT AUTO 1 % (0-6); Hematocrit 29.3 % (37.0-53.0); IMMATURE GRAN ABSOLUTE AUTO 0.14 K/mm3 (0.00-0.10); IMMATURE GRAN PERCENT AUTO 1 % (0-1); LYMPHOCYTES ABSOLUTE AUTO 1.25 K/mm3 (0.84-5.20); LYMPHOCYTES PERCENT AUTO 8 % (21-46); MONOCYTES ABSOLUTE AUTO 1.12 K/mm3 (0.16-1.47); MONOCYTES PERCENT AUTO 7 % (4-13); Mean Corpuscular HGB Conc 34.1 g/dL (31.5-36.5); Mean Corpuscular Volume 102 fL (80-100); Mean Platelet Volume 10.2 fL (9.1-12.4); NEUTROPHILS ABSOLUTE AUTO 14.03 K/mm3 (1.96-9.15); NEUTROPHILS PERCENT AUTO 84 % (41-73); Platelet Count 199 K/mm3 (150-400); RDW Coefficient Variation 16.2 % (11.7-14.2); RDW Standard Deviation 61.8 fL (35.1-46.3); Red Blood Cell Count 2.86 M/mm3 (4.30-5.90); White Blood Cell Count 16.66 K/mm3 (4.00-11.30)
[2024-05-11] MEDS ORDERED: Ipratropium/Albuterol SulF 2.5-0.5MG/3 ML Amp INH PRN (11:00)
[2024-05-11 11:05] LABS: Bun/Creatinine Ratio 32.5 (12.0-20.0); Creatinine, Blood 0.37 mg/dL (0.60-1.20); Potassium, Blood 3.9 mmol/L (3.5-5.5)
[2024-05-11 14:38] VITALS: BP 130/90
--- NOTE | 2024-05-11 16:35 | NUR ---
SHIFT SUMMARY: PATIENT IS MORE ALERT TODAY, CALM, CONVERSING c FAMILY AT BEDSIDE. PATIENT EXPRESSESS TO HIS THAT HE REALLY LIKES TO EAT. PATIENT EDUCATED ON PENDING SPEECH BARIUM SWALLOW EVAL. PATIENT VERBALIZED UNDERSTANDING. PATIENT HAS WEAK PRODUCTIVE COUGH, ORAL CARE AND SUCTIONED T/O SHIFT. PATIENT MEDICATED FOR PAIN PER EMAR c MOD EFFECT. PATIENT STILL ON CONTINUES PPN FOR NUTRITION, CURRENTLY INFUSING AT 94 MLS/HR. PATIENT RECEIVED BEDBATH/LINEN CHANGED, SULLIVAN IN PLACED FOR RETENTION, PATENT DRAINING YELLOW URINE TO GRAVITY. VITAL SIGNS REVIEWED. BED ALARM ON FOR SAFETY.
[2024-05-11 19:41] VITALS: BP 153/91
[2024-05-12 02:12] VITALS: BP 159/91
[2024-05-12 07:04] LABS: BASOPHILS ABSOLUTE AUTO 0.04 K/mm3 (0.00-0.23); BASOPHILS PERCENT AUTO 0 % (0-2); EOSINOPHILS ABSOLUTE AUTO 0.11 K/mm3 (0.00-0.68); EOSINOPHILS PERCENT AUTO 1 % (0-6); Hematocrit 29.8 % (37.0-53.0); Hemoglobin 10.3 g/dL (13.5-17.5); IMMATURE GRAN ABSOLUTE AUTO 0.14 K/mm3 (0.00-0.10); IMMATURE GRAN PERCENT AUTO 1 % (0-1); LYMPHOCYTES ABSOLUTE AUTO 1.49 K/mm3 (0.84-5.20); LYMPHOCYTES PERCENT AUTO 9 % (21-46); MONOCYTES ABSOLUTE AUTO 1.35 K/mm3 (0.16-1.47); MONOCYTES PERCENT AUTO 8 % (4-13); Mean Corpuscular HGB Conc 34.6 g/dL (31.5-36.5); Mean Corpuscular Volume 101 fL (80-100); Mean Platelet Volume 10.1 fL (9.1-12.4); NEUTROPHILS ABSOLUTE AUTO 13.59 K/mm3 (1.96-9.15); NEUTROPHILS PERCENT AUTO 81 % (41-73); Platelet Count 239 K/mm3 (150-400); RDW Standard Deviation 60.3 fL (35.1-46.3); Red Blood Cell Count 2.94 M/mm3 (4.30-5.90); White Blood Cell Count 16.72 K/mm3 (4.00-11.30)
[2024-05-12 07:06] VITALS: BP 142/93
--- NOTE | 2024-05-12 07:19 | NUR ---
SHIFT SUMMARY PT SEEMS VERY CONFUSED THIS SHIFT. HE IS SPEAKING ABOUT BEING IN [facility] STATING HE DOESN T UNDERSTAND WHY HE IS BEING HELD OR WHEN HE WILL GET TO SEE THE BAND CUTTING MACHINE OPERATOR . REORIENTED PT TO LOCATION AND SITUATION. PT STILL DOES NOT SEEM TO FULLY UNDERSTAND. WILL CONTINUE REDIRECT.
[2024-05-12 07:23] LABS: Albumin, Blood 1.7 g/dL (3.4-5.0); Albumin/Globulin Ratio 0.4 (0.8-1.8); Bilirubin, Total 0.6 mg/dL (0.1-1.0); Bun/Creatinine Ratio 28.2 (12.0-20.0); Calcium, Blood 9.1 mg/dL (8.5-10.1); Creatinine, Blood 0.39 mg/dL (0.60-1.20); Globulin, Blood 3.8 g/dL (2.2-4.0); Phosphorus, Blood 2.8 mg/dL (2.5-4.9); Total Protein, Blood 5.5 g/dL (6.4-8.2)
--- NOTE | 2024-05-12 11:22 | NUR ---
PT ASSESSED BY SPEECH THERAPY AND A PUREED DIET ORDERED W/ THIN LIQUIDS. PPN TO BE D/MARILIA AFTER TODAY
[2024-05-12] MEDS ORDERED: Acetaminophen 500 MG Tab PO SCH (14:00)
[2024-05-12 14:53] VITALS: BP 138/92
--- NOTE | 2024-05-12 18:38 | NUR ---
SHIFT SUMMARY PT A&O TO SELF AND PERSON. PT TOOK SCHEDULED AND PRN MEDICATIONS WITH NO ADVERSE REACTIONS. VSS, NO COMPLAINTS OF CP/PRESSURE OR SOB. PT METAPORT CLOGGED, BERNABE CALLED TO ANSWERING SERVICE. WILL PASS TO NOC TO FOLLOW UP ON. PT IMPULSIVE AND VERBALIZES JUST WANTING TO GO HOME. PT EDUCATED ON CONDITION AND INABILITY TO LEAVE YET. X4 RAILS ORDERED TO REDUCE PT OOB UNSAFETLY. NO ACUTE EVENTS AT THIS TIME. REPOSITIONED Q2. FALL PRECAUTIONS IN PLACE AND CALL LIGHT IN REAcH.
[2024-05-12 19:29] VITALS: BP 135/87
--- NOTE | 2024-05-13 05:23 | NUR ---
SHIFT SUMMARY PATIENT IS ALERT AND ORIENTED TO SELF AND PERSON THIS SHIFT. PATIENT HAS HAD NO ACUTE EVENTS THIS SHIFT. VITAL SIGNS REVIEWED. PATIENT HAS HAD NO COMPLAINTS OF SOB, NAUSEA, OR VOMITTING. PATIENT HAS REPORTED PAIN AND MEDICATED PER EMAR.. PATIENT HAS REMAINED IN RESTRAINTS TO OOB ACTIVITY. IV FLUIDS INFUSED ORDERED. PATIENT REPOSITIONED FREQUENTLY. BED IN LOCKED AND LOWEST POSITION.
[2024-05-13 06:05] VITALS: BP 145/90
[2024-05-13 07:35] VITALS: BP 144/95
[2024-05-13] MEDS ORDERED: Methocarbamol 500 MG Tab PO SCH (15:00)
[2024-05-13 15:35] VITALS: BP 104/57
--- NOTE | 2024-05-13 17:02 | NUR ---
SPiritual Care Visit. Pt. is arousible and spouse is at bedside and welcomes my visit. The Pt. displayed evidence of much more interaction with this pest control worker helper, though drifted off every now and then. Spouse at bedside verbalized her long journey through the hard decisions and struggles with the care of the Pt. but also displayed evidence of being encouraged by the progress he has made. Spouse also gave a verbal commendation regarding the many different people who have given her spouse care. This pest control worker helper listened and sought to normalize the Pt. and spouses experience. Pt. verbalized an interest to have this pest control worker helper praye for him. Prayed for Pt. Pt. and spouse both verbalized gratitude for the spiritual care visit.
--- NOTE | 2024-05-13 17:34 | NUR ---
assumed care of pt. a/o x2 confused yet cooperative, family at bedside to assist with care. xtra mattress placed on bed for discomfort plus iv meds given for pain, to transition to po.
--- NOTE | 2024-05-13 17:39 | NUR ---
pt was assited out of bed and did very well was able to stand at bedside with fww and minimal assistence..
[2024-05-13 19:52] VITALS: BP 114/74
[2024-05-14 04:38] VITALS: BP 146/88
[2024-05-14 06:30] LABS: BASOPHILS ABSOLUTE AUTO 0.08 K/mm3 (0.00-0.23); BASOPHILS PERCENT AUTO 1 % (0-2); EOSINOPHILS ABSOLUTE AUTO 0.16 K/mm3 (0.00-0.68); EOSINOPHILS PERCENT AUTO 1 % (0-6); Hematocrit 29.8 % (37.0-53.0); Hemoglobin 9.9 g/dL (13.5-17.5); IMMATURE GRAN ABSOLUTE AUTO 0.11 K/mm3 (0.00-0.10); IMMATURE GRAN PERCENT AUTO 1 % (0-1); LYMPHOCYTES ABSOLUTE AUTO 1.66 K/mm3 (0.84-5.20); LYMPHOCYTES PERCENT AUTO 11 % (21-46); MONOCYTES ABSOLUTE AUTO 1.61 K/mm3 (0.16-1.47); MONOCYTES PERCENT AUTO 10 % (4-13); Mean Corpuscular HGB 34.4 pg (26.0-34.0); Mean Corpuscular HGB Conc 33.2 g/dL (31.5-36.5); Mean Corpuscular Volume 104 fL (80-100); Mean Platelet Volume 9.7 fL (9.1-12.4); NEUTROPHILS ABSOLUTE AUTO 12.14 K/mm3 (1.96-9.15); NEUTROPHILS PERCENT AUTO 77 % (41-73); Platelet Count 344 K/mm3 (150-400); RDW Coefficient Variation 16.4 % (11.7-14.2); RDW Standard Deviation 63.1 fL (35.1-46.3); Red Blood Cell Count 2.88 M/mm3 (4.30-5.90); White Blood Cell Count 15.76 K/mm3 (4.00-11.30)
[2024-05-14 06:48] LABS: Albumin, Blood 1.8 g/dL (3.4-5.0); Albumin/Globulin Ratio 0.4 (0.8-1.8); Bilirubin, Total 0.6 mg/dL (0.1-1.0); Calcium, Blood 9.6 mg/dL (8.5-10.1); Creatinine, Blood 0.5 mg/dL (0.60-1.20); Globulin, Blood 4.3 g/dL (2.2-4.0); Potassium, Blood 3.5 mmol/L (3.5-5.5); Total Protein, Blood 6.1 g/dL (6.4-8.2)
[2024-05-14 07:12] VITALS: BP 128/92
[2024-05-14] MEDS ORDERED: OxyCODONE HCL 5 MG TAB PO PRN (08:00)
[2024-05-14] MEDS ORDERED: Ibuprofen 400 MG Tab PO PRN (08:00)
[2024-05-14] MEDS ORDERED: Methocarbamol 500 MG Tab PO SCH (09:00)
[2024-05-14 15:07] VITALS: BP 121/79
[2024-05-14] MEDS ORDERED: Robaxin750 MG PO (15:25)
[2024-05-14] MEDS ORDERED: LIDO700A20 TOP (15:25)
[2024-05-14] MEDS ORDERED: IBUP600 PO (15:26)
[2024-05-14] MEDS ORDERED: ACET500 PO (15:27)
== END 2024-05-14 16:41 | disposition home health service (06) | DRG 871 ==
LOC: ER 04:17 → EOR 04:49 → ICUE 04:54 → MEDS 05-07 18:20
PROVIDERS: Emergency Medicine; Family Medicine; Internal Medicine Critical Care Medicine; ADMIT Internal Medicine
PROC: 5A0935A Assistance with Respiratory Ventilation, Less than 24 Consecutive Hours, High Flow/Velocity Cannula (ICD-10-PCS; principal; 2024-05-05)
PROC: 3E033XZ Introduction of Vasopressor into Peripheral Vein, Percutaneous Approach (ICD-10-PCS; 2024-05-05)
PROC: 3E03329 Introduction of Other Anti-infective into Peripheral Vein, Percutaneous Approach (ICD-10-PCS; 2024-05-05)
DX: A41.9 Sepsis, unspecified organism (principal); E43 Unspecified severe protein-calorie malnutrition; R65.21 Severe sepsis with septic shock; G92.8 Other toxic encephalopathy; J18.9 Pneumonia, unspecified organism; J96.01 Acute respiratory failure with hypoxia; F10.139 Alcohol abuse with withdrawal, unspecified; C18.9 Malignant neoplasm of colon, unspecified; C78.7 Secondary malignant neoplasm of liver and intrahepatic bile duct; C78.02 Secondary malignant neoplasm of left lung; C78.01 Secondary malignant neoplasm of right lung; D84.9 Immunodeficiency, unspecified; E87.21 Acute metabolic acidosis; Z68.1 Body mass index [BMI] 19.9 or less, adult; E87.6 Hypokalemia; E83.42 Hypomagnesemia; E83.39 Other disorders of phosphorus metabolism; I48.91 Unspecified atrial fibrillation; I25.10 Atherosclerotic heart disease of native coronary artery without angina pectoris; M54.9 Dorsalgia, unspecified; G89.29 Other chronic pain; Z66 Do not resuscitate; I25.2 Old myocardial infarction; I10 Essential (primary) hypertension; Z99.81 Dependence on supplemental oxygen; Z79.899 Other long term (current) drug therapy; F41.9 Anxiety disorder, unspecified
CPT/HCPCS: 0241U; 36415; 36600; 51701; 51702; 71045; 71260; 80048; 80053; 80069; 80202; 82330; 82803; 83605; 83735; 83880; 84100; 84145; 84478; 84484; 85025; 87040; 87070; 87077; 87186; 87205; 92526; 92610; 93005; 93010; 93306; 94640; 94644; 94660; 94664; 94760; 94762; 99285-25; A9270; J1160; J1171; J1642; J1650; J1885; J2060; J2270; J2405; J2543; J2919; J3010; J3370; J3411; J3475; J3480; J7030; J7040; J7050; J7060; J7070; J7120; P9047; Q9967

== ENCOUNTER 2024-06-22 10:37 | Inpatient (IN) | payer OTHER, MEDICARE ==
[2024-06-22] VITALS (22 sets, daily range): BP systolic 102–159; BP diastolic 59–97
[~2024-06-22] VITALS: Ht 182.9 cm; Wt 69.8 kg
[~2024-06-22 10:37] MED LIST changes: +ACET500 PO; +IBUP600 PO; +LIDO700A20 TOP; +Methocarbamol500 MG PO; +OLAN2.5 PO; +OXYC10TA19 PO
[2024-06-22 11:11] LABS: BASOPHILS ABSOLUTE AUTO 0.04 K/mm3 (0.00-0.23); BASOPHILS PERCENT AUTO 1 % (0-2); Hematocrit 29.5 % (37.0-53.0); LYMPHOCYTES ABSOLUTE AUTO 1.27 K/mm3 (0.84-5.20); LYMPHOCYTES PERCENT AUTO 28 % (21-46); MONOCYTES ABSOLUTE AUTO 0.76 K/mm3 (0.16-1.47); MONOCYTES PERCENT AUTO 17 % (4-13); Mean Corpuscular HGB 29.9 pg (26.0-34.0); Mean Corpuscular HGB Conc 33.9 g/dL (31.5-36.5); Mean Corpuscular Volume 88 fL (80-100); Mean Platelet Volume 9.4 fL (9.1-12.4); NRBC ABSOLUTE 0.02 K/mm3 (0.00-0.02); NRBC Auto 0.4 /100 WBC (0.0-0.2); Platelet Count 302 K/mm3 (150-400); RDW Coefficient Variation 18.7 % (11.7-14.2); RDW Standard Deviation 60.5 fL (35.1-46.3); Red Blood Cell Count 3.35 M/mm3 (4.30-5.90); White Blood Cell Count 4.49 K/mm3 (4.00-11.30)
[2024-06-22 11:13] LABS: EOSINOPHILS ABSOLUTE AUTO 0.09 K/mm3 (0.00-0.68); EOSINOPHILS PERCENT AUTO 2 % (0-6); IMMATURE GRAN ABSOLUTE AUTO 0.02 K/mm3 (0.00-0.10); IMMATURE GRAN PERCENT AUTO 0 % (0-1); NEUTROPHILS ABSOLUTE AUTO 2.31 K/mm3 (1.96-9.15); NEUTROPHILS PERCENT AUTO 52 % (41-73)
[2024-06-22 11:21] LABS: Albumin/Globulin Ratio 0.4 (0.8-1.8); Bilirubin, Total 0.9 mg/dL (0.1-1.0); Bun/Creatinine Ratio 32.2 (12.0-20.0); Calcium, Blood 9.7 mg/dL (8.5-10.1); Creatinine, Blood 0.4 mg/dL (0.60-1.20); Globulin, Blood 4.5 g/dL (2.2-4.0); Total Protein, Blood 6.5 g/dL (6.4-8.2)
[2024-06-22 11:25] LABS: Base Excess Venous 1 mmol/L; Bicarbonate Venous 24.8 mmol/L (24.0-30.0); PCO2 Venous 43.8 mmHg (38-42); pH Blood Venous 7.38 (7.34-7.37)
[2024-06-22 11:39] LABS: BAND PERCENT MAN 7 % (0-8); BASOPHILS PERCENT MAN 0 % (0-2); EOSINOPHILS ABSOLUTE MAN 0.13 K/mm3 (0.00-0.68); EOSINOPHILS PERCENT MAN 3 % (0-6); LYMPHOCYTES % ATYPICAL MANUAL 1 % (0-0); LYMPHOCYTES ABSOLUTE MAN 1.43 K/mm3 (0.84-5.20); LYMPHOCYTES PERCENT MAN 31 % (21-46); METAMYELOCYTE ABSOLUTE MAN 0.04 K/mm3 (0.00-0.00); METAMYELOCYTE PERCENT MAN 1 % (0-0); MONOCYTES ABSOLUTE MAN 0.58 K/mm3 (0.16-1.47); MONOCYTES PERCENT MAN 13 % (4-13); NEUTROPHILS ABSOLUTE MAN 2.28 K/mm3 (1.96-9.15); SEG NEUTROPHILS PERCENT MAN 44 % (41-73); TOTAL CELLS COUNTED 100
[2024-06-22 11:59] LABS: Influenza A, PCR NEGATIVE (NEGATIVE); Influenza B, PCR NEGATIVE (NEGATIVE); Resp Syncytial Virus, PCR NEGATIVE (NEGATIVE); SARS-Cov-2 (COVID-19) PCR, MMC NEGATIVE (NEGATIVE)
[2024-06-22] MEDS ORDERED: Piperacillin/Tazobactam Sod 4.5 GM in NS 100 ML IV ONE (12:15)
[2024-06-22] MEDS ORDERED: Ondansetron 4 MG TAB PO PRN (13:00)
[2024-06-22] MEDS ORDERED: FLU VACC TS2024-25(6MOS UP)/PF 45 MCG/0.5 ML SYRINGE IM ONE (13:00)
[2024-06-22] MEDS ORDERED: OxyCODONE HCL 5 MG TAB PO PRN (13:00)
[2024-06-22] MEDS ORDERED: NS 1,000 ML IV SCH ×2 (13:00→17:45)
[2024-06-22] MEDS ORDERED: Vancomycin HCL 1,250 MG in NS 250 ML IV ONE (13:25)
[2024-06-22] MEDS ORDERED: Potassium Chloride 20 MEQ in NS 90 ML IV SCH (14:00)
[2024-06-22] MEDS ORDERED: Lactated Ringer's 1,000 ML IV SCH (15:20)
[2024-06-22] MEDS ORDERED: Lidocaine HCl/Pf 1% 5 ML VIAL ONE (15:36)
[2024-06-22] MEDS ORDERED: FentaNYL Citrate 50 MCG/ML 2 ML Injection IV PRN (15:40)
[2024-06-22 16:16] LABS: International Normalized Ratio 1.17; Prothrombin Time Results 12.4 Sec (9.7-11.5)
[2024-06-22] MEDS ORDERED: Midazolam HCl 1MG / ML 2ML Vial IV ONE (16:31)
[2024-06-22] MEDS ORDERED: Propofol 10mg/ml 20 ml Vial (Procedural) IV ONE (16:31)
[2024-06-22 16:34] LABS: Bun/Creatinine Ratio 33.4 (12.0-20.0); Calcium, Blood 9.5 mg/dL (8.5-10.1); Creatinine, Blood 0.33 mg/dL (0.60-1.20); Potassium, Blood 3.3 mmol/L (3.5-5.5)
[2024-06-22] MEDS ORDERED: NS 1,000 ML IV ONE (17:15)
[2024-06-22 17:39] LABS: Glucose, Body Fluid 6 mg/dL
[2024-06-22 17:41] LABS: Body Fluid WBC Count 74200 /mm3 (0-999)
[2024-06-22 17:42] LABS: RBC Count, Body Fluid 330000 /mm3 (0-0)
[2024-06-22 17:45] LABS: Lactate Dehydrogenase, Body Fl 3287 U/L; Protein, Body Fluid 1.4 g/dL
[2024-06-22] MEDS ORDERED: Meropenem 2,000 MG in NS 250 ML IV SCH (18:00)
[2024-06-22] MEDS ORDERED: Piperacillin/Tazobactam Sod 4.5 GM in NS 100 ML IV SCH (18:00)
[2024-06-22] MEDS ORDERED: dexmedeTOMIDine 100 ML IV SCH (18:00)
[2024-06-22] MEDS ORDERED: Acetaminophen 325 MG TABLET PO PRN (18:15)
[2024-06-22] MEDS ORDERED: Potassium Chloride 40 MEQ in NS 250 ML IV ONE (19:00)
[2024-06-22 19:08] LABS: Total Cell Count, Body Fluid 100
[2024-06-22 19:09] LABS: Appearance, Body Fluid Cloudy (Clear)
--- NOTE | 2024-06-22 19:17 | NUR ---
SHIFT SUMMARY NO NEW ACUTE EVENTS OCCURRED TODAY. PT REPORTED GENERALIZED PAIN THROUGHOUT THE DAY WHICH WAS TREATED WITH PAIN MEDS ON EMAR. FENTANYL WEANING ENCOURAGED TO PT. PT LIFTED TO RECLINER WITH A POSITIVE OUTCOME AND ATTITUDE FROM PATIENT. REPORT WAS GIVEN TO ONCOMING NURSE.
--- NOTE | 2024-06-22 19:21 | NUR ---
PT ARRIVAL PT ARRIVED TO ICU AT APPROXIMATELY 1510. PT WAS AOX4 AND DENIED ANY PAIN. AT BEDSIDE. MD PERFORMED ULTRASOUND GIDED CHEST TUBE PLACEMENT. A TOTAL OF 100MCG OF FENTANYL WAS GIVEN BEFORE AND DURING PROCEDURE. PT POST PROCEDURE BECAME CONFUSED AND AGGITATED. PRECEDEX GTT WAS ORDERED AND STARTED. REPORT FROM ED STATED PORT WAS NOT ACCESSIBLE SO PICC LINE WAS PLACED IN LEFT UPPER ARM. L AC IV WAS DC. R FOREARM 20G IV WAS ALSO PLACED. 1L BOLUS WAS STARTED WITH MD RUTHERFORD ORDERED A SECOND BOLUS FOR A TOTAL OF 2L. K+ BEING REPLACED CURRENTLY WITH A TOTAL OF 60 MEQ OF POTASSIUM. PT HR INCREASED DURING CHEST TUBE PLACEMENT TO 180'S AND SUSTAINED. AMIOBOLUS GIVEN AND MAINTENENCE GTT STARTED. PT CONTINUED TO BE CONFUSED AND ATTEMPTED AT PULLING AT LINES AND TUBES AND THEN WAS PLACED IN BLUE RESTRAINTS AT SHIFT CHANGE. TEMP SULLIVAN WAS PLACED FOR CONCERNS OF A FEVER. TMAX DURING THIS TIME WAS 105.3. COOLING BLANKET WAS PLACED AROUND CORE AND LEGS. PT OXYGEN WAS 3L ON ARRIVAL AND HAS BEEN TITRATED UP TO 5L OXY MASK TO NC. STATED THAT PT HAS RECURRENT AND SEVERE ICU DELERIUM. CHEST TUBE HAS HIGH EXPECTED OUTPUT PER MD, TOTAL 1350 OF PURULENT DRAINAGE. REPORT WAS GIVEN TO ONCOMING NURSE.
[2024-06-22] MEDS ORDERED: LONSURF 20 MG-1 EAC1 PO (19:51)
[2024-06-22] MEDS ORDERED: Lactobacil 2-S.Thermo-Bifido 1 1 Cap PO SCH (21:00)
[2024-06-22] MEDS ORDERED: Vancomycin HCL 1,000 MG in NS 250 ML IV SCH (22:00)
--- NOTE | 2024-06-22 22:29 | NUR ---
ASSUMPTION OF CARE: PT IN ICU, ARRIVAL THROUGH ED. UPON THIS RN ENTERING ROOM, PATIENT SLIGHTLY DISORIENTED AND CONFUSED. PER PRIOR RN REPORT, PT HAD ACUTE CONFUSION/DISORIENTATION FOLLOWING ADMINISTRATION OF FENTANYL FOR CHEST TUBE PLACEMENT.PLEASANT AND EASILY RE-DIRECTED. PT BECAME MORE ORIENTED THIS RN PERFORMED ASSESSMENT. FOLLOWING ASSESSMENT, ABLE TO ANSWER NAME,SITUATION, M/D/Y, AND PLACE. HR 100-130S. SINUS TACH. SBP 100S. AMIODORONE DRIP RUNNING 1MG/MIN. PRECEDEX 1MCG/KG/HR. NO EDEMA NOTED. PT ON 6L O2 VIA NC. SATS >95%. NOT NORMALLY ON HOME O2. BREATHING UNLABORED. CHEST TUBE LOCATED ON RIGHT LATERAL SIDE, DRAINING GREEN PURULENT DRAINAGE. PER PT HX, PT DX WITH COLON CA. PER , USUALLY HAS N/V. HAS NOT HAD N/V SINCE ADMISSION TODAY. TEMP SULLIVAN IN PLACE,PATENT, DRAINING CONCENTRATED, DAVID, URINE. SKIN WARM, DRY. PT FEBRILE, COOLING BLANKETS IN PLACE. PT C/O OF BACK PAIN, PER PT, THIS IS CHRONIC AND HE GENERALLY MANAGES IT W/ REPOSITIONING AND MEDICATIONS. PICC LINE TO SULAIMAN. , JESICA, AT BEDSIDE. THIS RN TO CONTINUE TO MONITOR.
[2024-06-22 23:32] LABS: PCO2 Arterial 32.7 mmHg (35-45); PO2 Arterial 52.3 mmHg (80-100); pH Blood Arterial 7.45 (7.35-7.45)
--- NOTE | 2024-06-22 23:38 | NUR ---
ABG ABG RESULTS CALLED TO DR RUTHERFORD. ORDER FOR AIRVO
[2024-06-22 23:41] LABS: Bun/Creatinine Ratio 34.6 (12.0-20.0); Creatinine, Blood 0.32 mg/dL (0.60-1.20); Potassium, Blood 3.4 mmol/L (3.5-5.5)
[2024-06-23] VITALS (95 sets, daily range): BP systolic 77–176; BP diastolic 54–105
[2024-06-23] MEDS ORDERED: Potassium Chloride 20 MEQ TabCR PO ONE (00:05)
[2024-06-23 03:18] LABS: Hematocrit 22.6 % (37.0-53.0); Hemoglobin 7.4 g/dL (13.5-17.5); Mean Corpuscular HGB Conc 32.7 g/dL (31.5-36.5); Mean Corpuscular Volume 89 fL (80-100); Mean Platelet Volume 9.6 fL (9.1-12.4); Platelet Count 201 K/mm3 (150-400); RDW Coefficient Variation 18.7 % (11.7-14.2); RDW Standard Deviation 59.7 fL (35.1-46.3); Red Blood Cell Count 2.55 M/mm3 (4.30-5.90); White Blood Cell Count 4.09 K/mm3 (4.00-11.30)
[2024-06-23 03:21] LABS: Acinetobacter baumannii DNA Not Detected copy/mL (NOT DETECT); Enterobacter cloacae DNA Not Detected copy/mL (NOT DETECT); Escherichia coli DNA Not Detected copy/mL (NOT DETECT); Haemophilus influenzae DNA Not Detected copy/mL (NOT DETECT)
[2024-06-23 03:22] LABS: Adenovirus DNA Not Detected (NOT DETECT); Chlamydia pneumonia Not Detected (NOT DETECT); Human Coronavirus RNA Not Detected (NOT DETECT); Human Metapneumovirus RNA Not Detected (NOT DETECT); Influenza virus A RNA Not Detected (NOT DETECT); Influenza virus B RNA Not Detected (NOT DETECT); Klebsiella aerogenes DNA Not Detected copy/mL (NOT DETECT); Klebsiella oxytoca DNA Not Detected copy/mL (NOT DETECT); Klebsiella pneumoniae DNA Not Detected copy/mL (NOT DETECT); Legionella pneumophila Not Detected (NOT DETECT); Moraxella catarrhalis DNA Not Detected copy/mL (NOT DETECT); Mycoplasma pneumoniae Not Detected (NOT DETECT); Parainfluenza virus RNA Not Detected (NOT DETECT); Proteus sp DNA Not Detected copy/mL (NOT DETECT); Pseudomonas aeruginosa DNA Not Detected copy/mL (NOT DETECT); Respiratory syncytial Vir RNA Not Detected (NOT DETECT); Rhinovirus+Enterovirus RNA Not Detected (NOT DETECT); Serratia marcescens DNA Not Detected copy/mL (NOT DETECT); Staphylococcus aureus DNA Not Detected copy/mL (NOT DETECT); Streptococcus agalactiae DNA Not Detected copy/mL (NOT DETECT); Streptococcus pneumoniae DNA Not Detected copy/mL (NOT DETECT); Streptococcus pyogenes DNA Not Detected copy/mL (NOT DETECT)
[2024-06-23 03:37] LABS: Albumin, Blood 1.3 g/dL (3.4-5.0); Albumin/Globulin Ratio 0.4 (0.8-1.8); Bilirubin, Total 0.6 mg/dL (0.1-1.0); Bun/Creatinine Ratio 34.2 (12.0-20.0); Calcium, Blood 8.1 mg/dL (8.5-10.1); Creatinine, Blood 0.29 mg/dL (0.60-1.20); Globulin, Blood 3.2 g/dL (2.2-4.0); Potassium, Blood 3.7 mmol/L (3.5-5.5)
[2024-06-23 03:38] LABS: Total Protein, Blood 4.5 g/dL (6.4-8.2)
[2024-06-23 03:41] LABS: BAND PERCENT MAN 19 % (0-8); BASOPHILS ABSOLUTE MAN 0.04 K/mm3 (0.00-0.23); BASOPHILS PERCENT MAN 1 % (0-2); EOSINOPHILS ABSOLUTE MAN 0.24 K/mm3 (0.00-0.68); EOSINOPHILS PERCENT MAN 6 % (0-6); LYMPHOCYTES ABSOLUTE MAN 1.02 K/mm3 (0.84-5.20); LYMPHOCYTES PERCENT MAN 25 % (21-46); MONOCYTES ABSOLUTE MAN 0.81 K/mm3 (0.16-1.47); MONOCYTES PERCENT MAN 20 % (4-13); NEUTROPHILS ABSOLUTE MAN 1.96 K/mm3 (1.96-9.15); SEG NEUTROPHILS PERCENT MAN 29 % (41-73); TOTAL CELLS COUNTED 100
--- NOTE | 2024-06-23 05:57 | NUR ---
SHIFT SUMMARY: PT ARRIVED TO ICU 5 FROM ED VIA GURNEY. TRANSPORTED BY ED RN DONALD. PT ALERT AND ORIENTED X4. PLEASANT, ABLE TO FOLLOW COMMANDS, AND ANSWERS APPROPRIATELY TO ASSESSMENT QUESTIONS. TEMP 98.1 TEMPORAL. HR 70S-80S. SBP SOFT 80S-100S. SINUS W/MAPS <65. PT DENIES CHEST PAIN OR SOB. DR BLOOM IN ROOM ASSESSING PT SHORTLY AFTER HER ARRIVAL. GOAL SUPPORT BP/MAP W/FLUID RESUSCITATION. LUNG LOVETT CLEAR T/O. PT ON RA. SATS >95%. PER PT, SHE STARTED HAVING NAUSEA ON 06/20/24 AND THEN VOMITING 06/21/24. SHE CAME TO THE ED 06/22/24 DUE TO SPIKING A FEVER AND HER BEING IMMUNOCOMPROMISED. SHE DENIES ANY DIARRHEA. DENIES URINARY ISSUES BUT STATES SHE "HASN'T GONE MUCH." PER ED, PT WAS STRAIGHT CATHED AND ABOUT 200MLS REMOVED. PT BLADDER SCANNED THIS SHIFT AND FOUND TO HAVE ONLY 156MLS IN BLADDER. PTS ED IVS FOUND TO BE PAINFUL AND NOT PATENT. POWERGLIDE PLACED IN HOLLY. THIS RN WILL CONTINUE TO MONITOR AND REPORT TO ONCOMING RN.
[2024-06-23] MEDS ORDERED: NS 250 ML IV ONE (06:00)
--- NOTE | 2024-06-23 06:23 | NUR ---
SHIFT SUMMARY: PT RESTING IN ROOM, WAKES UP AND CALLS OUT PERIODICALLY. APPEARS CONFUSED AND STATES THAT HE WAS HAVING "BAD DREAMS." PT EASILY COMFORTED BY RNS PRESENCE AND VOICE. PER PTS SPOUSE, PT CAN BECOME VERY DISORIENTED WHILST IN THE HOSPITAL, ESPECIALLY IN THE EVENINGS. OTHERWISE, PT IS EASILY ORIENTED BACK TO PLACE. HE IS AWARE OF SELF AND ANSWERS APPROPRIATELY. PT AFEBRILE, TEMP 97.5. HR HAS BEEN IN THE 60S, W/ ONE EPISODE OF IT DROPPING INTO THE 40S. AMIODORONE DRIP DC'D PER DRS ORDERS. PRECEDEX DRIP CONTINUING AT 1MCG/KG/MIN. SBP HAS REMAINED IN THE 100S. MAPS>65. PT NOW ON AIRVO RECEIVING 40 LPM 50 FIO2. SATS >95% CHEST TUBE ON RIGHT LATERAL SIDE, CONTINUES TO DRAIN GREENISH-PURULENT FLUID. SULLIVAN IN PLACE, PATENT, DRAINING TO GRAVITY. PICC LINE IN SULAIMAN.
--- NOTE | 2024-06-23 08:29 | NUR ---
START OF SHIFT THIS NURSE ASSUMED CARE AT APPROXIMATELY 0700. PT RESTING COMFORTABLY IN BED WITHOUT ANY COMPLAINTS. PT DENIES PAIN AT THIS TIME. PT IS ON PRECEDEX GTT AT 1MCG/KG/HR AND IS EASILY ARROUSABLE WITH VERBAL STIMULI. CHEST TUBE SITE IS C/D/I AND WNL. PT IS NORMOTHERMIC WITH SR 60'S. BP IS TABLE 100'S/90'S. AMIO GTT WAS STOPPED PRIOR TO SHIFT D/T BRADYCARDIA. PT ON 45% AND 40L AIRVO. WILL CONTINUE WITH THE PLAN OF CARE.
[2024-06-23] MEDS ORDERED: Enoxaparin 40 MG/0.4 ML SYR SC SCH ×2 (09:00)
[2024-06-23 10:15] LABS: Hematocrit 23.2 % (37.0-53.0); Hemoglobin 7.8 g/dL (13.5-17.5)
[2024-06-23 13:47] LABS: Vancomycin, Trough 12.9 ug/mL (5.0-10.0)
[2024-06-23] MEDS ORDERED: Dornase Alfa 5 MG,NS 25 ML in Syringe 1 SYR XX SCH (14:05)
[2024-06-23] MEDS ORDERED: Alteplase Recombinant 2 MG / Vial IV SCH (14:05)
[2024-06-23] MEDS ORDERED: Dornase Alfa 1 MG/ML Neb INH SCH (14:05)
[2024-06-23] MEDS ORDERED: Vancomycin HCL 1,250 MG in NS 250 ML IV SCH (14:30)
[2024-06-23] MEDS ORDERED: Alteplase 1 MG/ML 10 MG,NS 30 ML in Syringe 1 SYR XX SCH (14:30)
[2024-06-23] MEDS ORDERED: NS 20 ML IV ONE (14:45)
[2024-06-23] MEDS ORDERED: Ipratropium/Albuterol SulF 2.5-0.5MG/3 ML Amp INH SCH (15:20)
--- NOTE | 2024-06-23 16:51 | NUR ---
SHIFT SUMMARY PT RESTING IN BED. PT HAS HAD NO COMPLAINTS OF PAIN OR DISCOMFORT. PT TRANSITIONED TO HF NC ON 8L SAT ABOVE 95%. PT HAS HAD FLUCTUATING UOP DECREASING THROUGHOUT THE DAY TO 20-30ML/HR, MD MORRISON AWARE. CT OUTPUT HAD STOPPED AND CT OF CHEST WAS OBTAINED. TAMIKO INFUSED TPA THROUGH THE CHEST TUBE AND WAS CLAMPED FOR [address] OUTPUT FOR TOTAL OUT. PT EARS WERE FLUSHED WITH NS AND HYDROGEN PYROXIDE TO REMOVE LARGE EAR WAX BLOCK. PT WAS [place] AND THAT ISSUE HAS SINCE RESOLVED. WILL CONTINUE WITH THE PLAN OF CARE UNTIL REPORT IS GIVEN.
--- NOTE | 2024-06-23 20:50 | NUR ---
ASSUMPTION OF CARE: PT ALERT AND ORIENTED X4. PLEASANT AND AGREEABLE TO CARE. ANSWERS QUESTIONS APPROPRIATELY. HR 90-100S. SINUS. SBP 160S-170S. TEMP 99.1. LUNGS HAVE EXPIRATORY WHEEZING IN UPPER LOBES, DIMINISHED IN BASES. LLL HAS A RUB. PT ON O2 VIA HFNC ON 8L. SATS >95%. PT EATING DINNER UPON THIS RN ENTERING ROOM. PT ON MECHANICAL SOFT DIET, TOLERATING BOTH FOOD AND FLUIDS WELL. ABD SOFT, NONTENDER. TEMP SULLIVAN CATHETER IN PLACE, PATENT, DRAINING TO GRAVITY. CHEST TUBE IN PLACE ON RIGHT SIDE, PATENT, DRAINING GREENISH-YELLOW PRURULENT FLUID. 20G IV IN HOLLY. PICC LINE IN SULAIMAN. MAINTENANCE FLUIDS RUNNING. PT C/O OF GENERALIZED CHRONIC PAIN IN UPPER BACK. PRN MEDICATIONS ADMINISTERED PER ORDERS. SEE EMAR. SKIN C/D/I. THIS RN TO CONTINUE TO MONITOR PT.
[2024-06-24] VITALS (61 sets, daily range): BP systolic 75–143; BP diastolic 53–84
[2024-06-24] MEDS ORDERED: BusPIRone HCl 5 MG Tab PO SCH (01:00)
[2024-06-24 03:55] LABS: Hematocrit 24.1 % (37.0-53.0); Mean Corpuscular HGB Conc 33.2 g/dL (31.5-36.5); Mean Corpuscular Volume 87 fL (80-100); Mean Platelet Volume 9.3 fL (9.1-12.4); NRBC ABSOLUTE 0.02 K/mm3 (0.00-0.02); NRBC Auto 0.3 /100 WBC (0.0-0.2); Platelet Count 278 K/mm3 (150-400); RDW Standard Deviation 59.9 fL (35.1-46.3); Red Blood Cell Count 2.76 M/mm3 (4.30-5.90); White Blood Cell Count 6.48 K/mm3 (4.00-11.30)
[2024-06-24 04:17] LABS: Bun/Creatinine Ratio 29.5 (12.0-20.0); Calcium, Blood 8.6 mg/dL (8.5-10.1); Creatinine, Blood 0.27 mg/dL (0.60-1.20); Magnesium, Blood 1.2 mg/dL (1.6-2.4); Phosphorus, Blood 2.1 mg/dL (2.5-4.9); Potassium, Blood 3.3 mmol/L (3.5-5.5)
[2024-06-24 04:19] LABS: BAND PERCENT MAN 7 % (0-8); BASOPHILS ABSOLUTE MAN 0.12 K/mm3 (0.00-0.23); BASOPHILS PERCENT MAN 2 % (0-2); EOSINOPHILS ABSOLUTE MAN 0.32 K/mm3 (0.00-0.68); EOSINOPHILS PERCENT MAN 5 % (0-6); LYMPHOCYTES PERCENT MAN 14 % (21-46); MONOCYTES ABSOLUTE MAN 0.51 K/mm3 (0.16-1.47); MONOCYTES PERCENT MAN 8 % (4-13); SEG NEUTROPHILS PERCENT MAN 64 % (41-73); TOTAL CELLS COUNTED 100
[2024-06-24] MEDS ORDERED: Magnesium Sulf 2 GM/Water 50ML 50 ML IV ONE ×2 (04:55→09:55)
[2024-06-24] MEDS ORDERED: Potassium Chloride 20 MEQ TabCR PO ONE (04:55)
--- NOTE | 2024-06-24 04:56 | NUR ---
UPDATE: THIS RN CALLED DR BLOOM THIS AM TO NOTIFY HIM ABOUT MORNING LABS: K+,CHLORIDE,PHOSPHATE, AND MAGNESIUM. RECEIVED ORDERS FOR REPLACEMENT. SEE EMAR.
[2024-06-24] MEDS ORDERED: Sodium Phosphate 15 MM in Dextrose 5% 250 ML IV ONE (05:30)
--- NOTE | 2024-06-24 05:52 | NUR ---
SHIFT SUMMARY: PT REMAINS ALERT & ORIENTED X4. AGREEABLE W/CARE AND USES CALL LIGHT APPROPRIATELY. TEMP 98.2. HR 80S-100S THIS SHIFT, SINUS RHYTHM. SBP 80S-100S, BP CUFF ON HOLLY. PRIOR BPS 100-170S WERE FROM RLE (PT CROSSING LEGS). PT NOW ON 5L O2 VIA HFNC. SATS >95%. BREATHING UNLABORED. RESPIRATORY CARE GAVE CPT TX THIS SHIFT. PT TOLERATED WELL. PT HAD BM THIS SHIFT, USING BEDPAN. TEMP SULLIVAN REMAINS IN PLACE, PATENT,DRAINING YELLOW URINE. PICC LINE IN SULAIMAN. 20G IV IN RFA. CHEST TUBE COLLECTION CHAMBER CHANGED OUT THIS SHIFT. CHEST TUBE PATENT, DRAINING [id number] DRAINAGE. THIS RN TO REPORT TO ONCOMING RN.
[2024-06-24] MEDS ORDERED: Alteplase Recombinant 2 MG / Vial IV SCH (09:10)
[2024-06-24] MEDS ORDERED: Dornase Alfa 1 MG/ML Neb INH SCH (09:10)
[2024-06-24] MEDS ORDERED: Dornase Alfa 5 MG,NS 25 ML in Syringe 1 SYR XX SCH (09:15)
[2024-06-24] MEDS ORDERED: Alteplase 1 MG/ML 10 MG,NS 30 ML in Syringe 1 SYR XX SCH (09:15)
[2024-06-24] MEDS ORDERED: NS 1,000 ML IV SCH ×3 (09:55→11:00)
[2024-06-24] MEDS ORDERED: Nicotine 14 MG PATCH TOP SCH (10:00)
--- NOTE | 2024-06-24 10:53 | NUR ---
"Spiritual Care | Pt. / Family Request Pt. is resting when I visit. Spouse is present at bedside and welcomes visit. As introductions are made the Pt. woke up. Pt. and spouse are known to this roll over press operator from a previous admission to this hospital. Was engaged with the Pt. Visit is aborted, as the Pts. nursing team came to work with him. With remain available."
--- NOTE | 2024-06-24 12:55 | NUR ---
JUST BEFORE 1000 PUSHED ALTEPLASE AND DORNASE INTO RIGHT CHEST TUBE. PT WAS THEN POSITIONED ON HIS RIGHT SIDE HEAD DOWN FOR 30 MINUTES, THEN POSITIONED TO HIS LEFT SIDE FOR 30 MINUTES, THEN SAT UPRIGHT FOR 30 MINUTES. CHEST TUBE WAS UNCLAMPED AT NOON WITH RETURN OF MILKY THIN LIQUID ABOUT 100ML. PT BECOMING SLIGHTLY DISORIENTED, RE-ORIENTS WELL WITH REDIRECTION, PT C/O BEING VERY EXHAUSTED. PLAN TO ALLOW PT TO SLEEP FOR >1HR AND REEVALUATE.
[2024-06-24 14:45] LABS: Bun/Creatinine Ratio 27.3 (12.0-20.0); Calcium, Blood 8.1 mg/dL (8.5-10.1); Creatinine, Blood 0.26 mg/dL (0.60-1.20); Phosphorus, Blood 2.4 mg/dL (2.5-4.9); Potassium, Blood 3.7 mmol/L (3.5-5.5)
--- NOTE | 2024-06-24 17:24 | NUR ---
PT ARRIVES FROM PACU WITH AMI MCKINLEY TO ICU 5. PT IS SONOROUS, VSS, WAKES AND ASKS FOR PAIN MEDS, DRIFTS OFF BACK TO SLEEP. LEFT ARM WITH INCISION FROM HAND TO ANTE-CUBITAL, WOUND VAC IN PLACE, PICTURES TAKEN FOR CHART. KEEP LEFT ARM ELEVATED. PT REPOSITIONS SELF, PILLOWS UNDER LEFT ARM.
--- NOTE | 2024-06-24 18:30 | NUR ---
TEREZA HAS CONTINUED TO BE VERY TIRED, ATTEMPTING TO SLEEP INTERMITTENTLY. A SLEEP HYGIENE SIGN WAS PLACED ON HIS DOOR AND IT CAUSED INCREASED ANXIETY. HE IS ON THE PRECEDEX @ 0.4MCG/KG AND IT SEEMS TO BE HELPING. CT TO THE RIGHT HAD ABOUT 85MLS NET OUTPUT THIS SHIFT. SULLIVAN WITH 400ML. PT WITH DIMINISHED APPETITE. IN FOR LARGE PART OF THE AFTERNOON. CONTINUE PLAN OF CARE.
[2024-06-25] VITALS (35 sets, daily range): BP systolic 75–114; BP diastolic 56–80
[2024-06-25 05:39] LABS: Hematocrit 22.8 % (37.0-53.0); Hemoglobin 7.5 g/dL (13.5-17.5); Mean Corpuscular HGB 29.2 pg (26.0-34.0); Mean Corpuscular HGB Conc 32.9 g/dL (31.5-36.5); Mean Corpuscular Volume 89 fL (80-100); Mean Platelet Volume 9.3 fL (9.1-12.4); Platelet Count 254 K/mm3 (150-400); RDW Coefficient Variation 19.3 % (11.7-14.2); Red Blood Cell Count 2.57 M/mm3 (4.30-5.90); White Blood Cell Count 5.79 K/mm3 (4.00-11.30)
[2024-06-25 06:12] LABS: Magnesium, Blood 1.7 mg/dL (1.6-2.4)
[2024-06-25 06:15] LABS: Anion Gap 10 mmol/L (3-11); Blood Urea Nitrogen 6 mg/dL (8-24); Bun/Creatinine Ratio 18.9 (12.0-20.0); CO2, Blood 25 mmol/L (21-32); Calcium, Blood 7.9 mg/dL (8.5-10.1); Chloride, Blood 97 mmol/L (98-108); Creatinine, Blood 0.32 mg/dL (0.60-1.20); Glomerular Filtration Rate 138 (60-); Glucose, Blood 89 mg/dL (70-99); Phosphorus, Blood 2.3 mg/dL (2.5-4.9); Potassium, Blood 3.8 mmol/L (3.5-5.5); Sodium, Blood 128 mmol/L (136-145); Vancomycin, Trough 22.1 ug/mL (5.0-10.0)
--- NOTE | 2024-06-25 06:24 | NUR ---
SHIFT SUMMARY: NO SIGNIFICANT CHANGES OR OVERNIGHT EVENTS FOR THE PT. VITALS ARE STABLE, PT MAINTAINING SPO2 >90% WITHOUT OXYGEN. HE CONTINUES TO BE VERY SOMNOLENT AND FALLS ASLEEP IN THE MIDDLE OF CONVERSATION. HOWEVER, WHEN AWAKE HE HAS BEEN APPROPRIATE. LEFT ARM REMAINS THE SAME, SWOLLEN AND RED, WOUND VAC IN PLACE. PT DID NOT HAVE MUCH COMPLAINT OF PAIN THOUGH, SO THAT SEEMS TO BE IMPROVING.
[2024-06-25 07:29] LABS: BAND PERCENT MAN 4 % (0-8); BASOPHILS ABSOLUTE MAN 0.05 K/mm3 (0.00-0.23); BASOPHILS PERCENT MAN 1 % (0-2); EOSINOPHILS ABSOLUTE MAN 0.23 K/mm3 (0.00-0.68); EOSINOPHILS PERCENT MAN 4 % (0-6); LYMPHOCYTES PERCENT MAN 19 % (21-46); MONOCYTES PERCENT MAN 19 % (4-13); SEG NEUTROPHILS PERCENT MAN 53 % (41-73); TOTAL CELLS COUNTED 100
[2024-06-25] MEDS ORDERED: Sodium Phosphate 20 MM in Dextrose 5% 500 ML IV STA (08:10)
[2024-06-25] MEDS ORDERED: Dornase Alfa 1 MG/ML Neb INH SCH (08:30)
[2024-06-25] MEDS ORDERED: Alteplase Recombinant 2 MG / Vial IV SCH (08:30)
[2024-06-25] MEDS ORDERED: Vancomycin HCL 1,250 MG in NS 250 ML IV SCH (11:00)
--- NOTE | 2024-06-25 11:07 | NUR ---
Spiritual Care Visit. Pt. is resting but reponds after I enter the room. Pt. welcomes my visit. Pt. is unsettled by a recent diagnosis, and acknoweldged with a nod his concern. Pt. displays evidence of being guarded with his words, but displays evidence of trust and being comforted with this sheet rock nailer's presence. The Pt. welcomed prayer. Prayed with Pt. Pt. verbalized gratitude for the spiritual care visit and welcomed this sheet rock nailer to return especially when his spouse is present.
[2024-06-25 15:39] LABS: Acinetobacter baumannii DNA Not Detected copy/mL (NOT DETECT); Enterobacter cloacae DNA Not Detected copy/mL (NOT DETECT); Escherichia coli DNA Not Detected copy/mL (NOT DETECT); Haemophilus influenzae DNA Not Detected copy/mL (NOT DETECT); Klebsiella aerogenes DNA Not Detected copy/mL (NOT DETECT); Klebsiella oxytoca DNA Not Detected copy/mL (NOT DETECT); Klebsiella pneumoniae DNA Not Detected copy/mL (NOT DETECT); Moraxella catarrhalis DNA Not Detected copy/mL (NOT DETECT); Proteus sp DNA Not Detected copy/mL (NOT DETECT); Pseudomonas aeruginosa DNA Not Detected copy/mL (NOT DETECT); Serratia marcescens DNA Not Detected copy/mL (NOT DETECT); Staphylococcus aureus DNA Not Detected copy/mL (NOT DETECT); Streptococcus agalactiae DNA Not Detected copy/mL (NOT DETECT); Streptococcus pneumoniae DNA Not Detected copy/mL (NOT DETECT); Streptococcus pyogenes DNA Not Detected copy/mL (NOT DETECT)
[2024-06-25 15:40] LABS: Adenovirus DNA Not Detected (NOT DETECT); Chlamydia pneumonia Not Detected (NOT DETECT); Human Coronavirus RNA Not Detected (NOT DETECT); Human Metapneumovirus RNA Not Detected (NOT DETECT); Influenza virus A RNA Not Detected (NOT DETECT); Influenza virus B RNA Not Detected (NOT DETECT); Legionella pneumophila Not Detected (NOT DETECT); Mycoplasma pneumoniae Not Detected (NOT DETECT); Parainfluenza virus RNA Not Detected (NOT DETECT); Respiratory syncytial Vir RNA Not Detected (NOT DETECT); Rhinovirus+Enterovirus RNA Not Detected (NOT DETECT)
--- NOTE | 2024-06-25 17:23 | NUR ---
TEREZA CONTINUES ON PRECEDEX. HE WAS GIVEN ANOTHER DOSE OF ALTEPLASE AND DORNASE WITH GOOD RETURN FROM CHEST TUBE. THE DRAINAGE HAS CHUNKS AND IS LESS GREEN THAN PREVIOUS. HE HAS SLEPT ON AND OFF T/O THE DAY, TAKEN IN MORE OF HIS MEALS, AND BEEN LESS DISORIENTED T/O THE SHIFT. SULLIVAN WITH GOOD OUTPUT. NO BM THIS SHIFT.
[2024-06-25] MEDS ORDERED: Protein Supplement 30 ML UD PO SCH (21:00)
--- NOTE | 2024-06-25 23:48 | NUR ---
SHIFT SUMMARY FROM 06/24: PT HAS NOT HAD ANY SIGNIFICANT CHANGE IN CONDITION OVER NIGHT. HIS VITALS REMAIN STABLE, SYSTOLIC REMAINS IN THE 80S BUT MAP >65. HE HAS HAD MINIMAL COMPLAINT OF PAIN, BUT FEELS VERY ANXIOUS. CHEST TUBE IS DRAINING, SULLIVAN IS PATENT. PT HAS BEEN APPROPRIATE, NO SIGN OF DELIRIUM THROUGH NIGHT. THAT SEEMED TO BE A CONCERN DURING THE DAY. HE WAS ABLE TO SLEEP FOR A FEW HOURS AT A TIME.
[2024-06-26] VITALS (36 sets, daily range): BP systolic 83–134; BP diastolic 53–93
[2024-06-26 03:37] LABS: Hemoglobin 7.4 g/dL (13.5-17.5); Mean Corpuscular HGB 29.4 pg (26.0-34.0); Mean Corpuscular HGB Conc 33.6 g/dL (31.5-36.5); Mean Corpuscular Volume 87 fL (80-100); Mean Platelet Volume 9.5 fL (9.1-12.4); Platelet Count 290 K/mm3 (150-400); RDW Coefficient Variation 19.3 % (11.7-14.2); RDW Standard Deviation 60.8 fL (35.1-46.3); Red Blood Cell Count 2.52 M/mm3 (4.30-5.90)
[2024-06-26 03:57] LABS: Bun/Creatinine Ratio 21.9 (12.0-20.0); Calcium, Blood 7.7 mg/dL (8.5-10.1); Creatinine, Blood 0.32 mg/dL (0.60-1.20); Magnesium, Blood 1.6 mg/dL (1.6-2.4); Phosphorus, Blood 2.1 mg/dL (2.5-4.9); Potassium, Blood 3.5 mmol/L (3.5-5.5)
[2024-06-26 04:46] LABS: BAND PERCENT MAN 1 % (0-8); BASOPHILS PERCENT MAN 0 % (0-2); EOSINOPHILS PERCENT MAN 0 % (0-6); LYMPHOCYTES ABSOLUTE MAN 1.65 K/mm3 (0.84-5.20); LYMPHOCYTES PERCENT MAN 25 % (21-46); MONOCYTES ABSOLUTE MAN 1.05 K/mm3 (0.16-1.47); MONOCYTES PERCENT MAN 16 % (4-13); NEUTROPHILS ABSOLUTE MAN 3.82 K/mm3 (1.96-9.15); PLASMA CELL ABSOLUTE MAN 0.06 K/mm3 (0.00-0.00); PLASMA CELLS PERCENT MAN 1 % (0-0); SEG NEUTROPHILS PERCENT MAN 57 % (41-73); TOTAL CELLS COUNTED 100
--- NOTE | 2024-06-26 06:18 | NUR ---
SHIFT SUMMARY: NO OVERNIGHT EVENTS. PT WORK OF BREATHING UNLABORED. MORE AWAKE AND ALERT THIS SHIFT. ALSO MORE TEARFUL AND EXPRESSED INCREASED ANXIETY. CHEST TUBE CONTINUES TO DRAIN. SULLIVAN IS PATENT. VITALS ARE STABLE, SYSTOLIC HAS BEEN HIGHER THAN LAST NIGHT. INCREASED COMPLAINT OF PAIN TONIGHT.
[2024-06-26] MEDS ORDERED: Magnesium Sulf 2 GM/Water 50ML 50 ML IV ONE (07:50)
[2024-06-26] MEDS ORDERED: Sodium Phosphate 20 MM in Dextrose 5% 500 ML IV STA (11:50)
[2024-06-26] MEDS ORDERED: propofoL 100 ML IV SCH (13:45)
[2024-06-26] MEDS ORDERED: Midazolam HCL 1 MG/ML 5MLVIAL IV SCH (13:45)
[2024-06-26] MEDS ORDERED: FentaNYL Citrate 50 MCG/ML 2 ML Injection IV SCH (13:45)
--- NOTE | 2024-06-26 16:44 | NUR ---
SUMMARY: PT WAS BRONCHED AT 1400, DR. MORRISON HAD BEEN DISCUSSING OPTIONS WITH PATIENT AND THE . THEY AGREED UPON THE BRONCHOSCOPY, CONSENT WAS SIGNED. PT WAS MEDICATED WITH VERSED AND PROPOFOL. PROCEDURE WENT ABOUT 20 MINUTES, SEE DR. MORRISON'S NOTE. PT AWOKE EASILY, FOLLOWING COMMANDS, COUGHING UP SPUTUM, ABLE TO KEEP AIRWAY CLEAR. RETURNED TO ROOM.
[2024-06-26 17:24] LABS: Bun/Creatinine Ratio 26.6 (12.0-20.0); Calcium, Blood 8.1 mg/dL (8.5-10.1); Creatinine, Blood 0.3 mg/dL (0.60-1.20); Potassium, Blood 3.8 mmol/L (3.5-5.5)
--- NOTE | 2024-06-26 17:50 | NUR ---
TEREZA CONTINUES TO RUN AN ELEVATED TEMP DESPITE TYLENOL. TEMP IS 101.8. PT HAD A SHORT RUN OF SVT AND DID NOT FEEL WELL DURING EPISODE. WILL UPDATE
--- NOTE | 2024-06-26 17:58 | NUR ---
ORDERS RECEIVED FROM . TEREZA HAS CONTINUED WITH TACHYCARDIA SINCE COMPLETION OF BRONCH TODAY. TEMPERATURES HAVE CONTINUED TO CLIMB. PT STATES HE DOESN'T FEEL WELL. HE IS STILL SLIGHTLY DISORIENTED FROM THE VERSED GIVEN DURING THE BRONCHOSCOPY. BLOOD PRESSURE HAS BEEN STABLE. ANTIBIOTICS CONTINUE. SULLIVAN TO GRAVITY DRAINAGE WITH IMPROVED OUTPUT. NO BM THIS SHIFT. BREATHING EASIER WITH GOOD COUGH, USING SUCTION.
[2024-06-26 18:19] LABS: Acinetobacter baumannii DNA Not Detected copy/mL (NOT DETECT); Adenovirus DNA Not Detected (NOT DETECT); Chlamydia pneumonia Not Detected (NOT DETECT); Enterobacter cloacae DNA Not Detected copy/mL (NOT DETECT); Escherichia coli DNA Not Detected copy/mL (NOT DETECT); Haemophilus influenzae DNA Not Detected copy/mL (NOT DETECT); Klebsiella aerogenes DNA Not Detected copy/mL (NOT DETECT); Klebsiella oxytoca DNA Not Detected copy/mL (NOT DETECT); Klebsiella pneumoniae DNA Not Detected copy/mL (NOT DETECT); Legionella pneumophila Not Detected (NOT DETECT); Moraxella catarrhalis DNA Not Detected copy/mL (NOT DETECT); Mycoplasma pneumoniae Not Detected (NOT DETECT); Proteus sp DNA Not Detected copy/mL (NOT DETECT); Pseudomonas aeruginosa DNA Not Detected copy/mL (NOT DETECT); Serratia marcescens DNA Not Detected copy/mL (NOT DETECT); Staphylococcus aureus DNA Not Detected copy/mL (NOT DETECT); Streptococcus agalactiae DNA Not Detected copy/mL (NOT DETECT); Streptococcus pneumoniae DNA Not Detected copy/mL (NOT DETECT); Streptococcus pyogenes DNA Not Detected copy/mL (NOT DETECT)
[2024-06-26 18:20] LABS: Human Coronavirus RNA Not Detected (NOT DETECT)
[2024-06-26] MEDS ORDERED: Melatonin 5 MG Tablet PO PRN (19:35)
[2024-06-26] MEDS ORDERED: QUEtiapine Fumarate 25 MG Tab PO PRN (19:35)
[2024-06-27] VITALS (29 sets, daily range): BP systolic 86–145; BP diastolic 54–91
[2024-06-27 03:53] LABS: Hematocrit 23.5 % (37.0-53.0); Hemoglobin 7.7 g/dL (13.5-17.5); Mean Corpuscular HGB 28.8 pg (26.0-34.0); Mean Corpuscular HGB Conc 32.8 g/dL (31.5-36.5); Mean Corpuscular Volume 88 fL (80-100); Mean Platelet Volume 9.3 fL (9.1-12.4); Platelet Count 308 K/mm3 (150-400); RDW Coefficient Variation 19.7 % (11.7-14.2); RDW Standard Deviation 62.1 fL (35.1-46.3); Red Blood Cell Count 2.67 M/mm3 (4.30-5.90); White Blood Cell Count 6.27 K/mm3 (4.00-11.30)
[2024-06-27 04:35] LABS: Bun/Creatinine Ratio 21.3 (12.0-20.0); Calcium, Blood 8.1 mg/dL (8.5-10.1); Creatinine, Blood 0.33 mg/dL (0.60-1.20); Potassium, Blood 3.5 mmol/L (3.5-5.5)
[2024-06-27 05:18] LABS: BASOPHILS PERCENT MAN 0 % (0-2); EOSINOPHILS ABSOLUTE MAN 0.06 K/mm3 (0.00-0.68); EOSINOPHILS PERCENT MAN 1 % (0-6); LYMPHOCYTES % ATYPICAL MANUAL 1 % (0-0); LYMPHOCYTES ABSOLUTE MAN 1.69 K/mm3 (0.84-5.20); LYMPHOCYTES PERCENT MAN 26 % (21-46); MONOCYTES ABSOLUTE MAN 1.06 K/mm3 (0.16-1.47); MONOCYTES PERCENT MAN 17 % (4-13); NEUTROPHILS ABSOLUTE MAN 3.44 K/mm3 (1.96-9.15); SEG NEUTROPHILS PERCENT MAN 55 % (41-73); TOTAL CELLS COUNTED 100
--- NOTE | 2024-06-27 05:19 | NUR ---
SHIFT SUMMARY: NO ADVERSE EVENTS OVERNIGHT. PT WAS FINALLY ABLE TO SLEEP, PRECEDEX HAS BEEN OFF ALL SHIFT BUT OTHER NIGHTTIME PRNS SEEMED TO HELP. PT REQUIRED SIGNIFICANTLY LESS MEDICATION TO MANAGE PAIN THIS EVENING. BREATHING APPEARS UNLABORED THROUGHOUT SHIFT. PT CONTINUES TO HAVE PRODUCTIVE COUGH, USING SUCTION HIMSELF NEEDED. VITALS ARE STABLE. SODIUM HAS IMPROVED. URINE OUTPUT HAS INCREASED QUITE A BIT FROM LAST NIGHT.
[2024-06-27 06:26] LABS: Human Metapneumovirus RNA Not Detected (NOT DETECT); Influenza virus A RNA Not Detected (NOT DETECT); Influenza virus B RNA Not Detected (NOT DETECT); Parainfluenza virus RNA Not Detected (NOT DETECT); Respiratory syncytial Vir RNA Not Detected (NOT DETECT); Rhinovirus+Enterovirus RNA Not Detected (NOT DETECT)
[2024-06-27 08:14] LABS: Magnesium, Blood 1.8 mg/dL (1.6-2.4); Phosphorus, Blood 2.5 mg/dL (2.5-4.9)
[2024-06-27] MEDS ORDERED: OXYC10TA19 PO (09:40)
[2024-06-27] MEDS ORDERED: Ipratropium/Albuterol SulF 2.5-0.5MG/3 ML Amp INH SCH (10:30)
[2024-06-27] MEDS ORDERED: Protein Supplement 30 ML UD PO SCH (14:00)
--- NOTE | 2024-06-27 14:02 | NUR ---
Spiritual Care Visit. Pt. is awake in bed and welcomes my visit. Pt. is Pleasant; sipping some juice and displays evidence of awaeness and engagement. As I facilitate an update the Pt. verbalized a possible care plan where he would be transferred to another hospital for surgery. Consider matters of eliu and comfort. Listen with empahty and a calming presence. Prayed with Pt. Pt. verbalized gratitude for the spiritual care visit.
--- NOTE | 2024-06-27 17:25 | NUR ---
SHIFT SUMMARY NO ACUTE CHANGES THIS SHIFT. PT HAS REMAINED AWAKE, ALERT, AND ORIENTED THIS SHIFT. PT WITH PERIODS OF FORGETFULNESS AT TIMES. PT IS ABLE TO MAKE NEEDS KNOWN WELL. PT HAS COMPLAINED OF PAIN TO RIBS/BACK AND MED PER EMAR. PT TAKING PO INTAKE WELL. PICC TO [place] C/D/I WITH NS INFUSING TKO. PIV SALINE LOCKED. CHEST TUBE TO RIGHT LATERAL SITE INTACT WITH MINIMAL DRAINAGE NOTED THIS SHIFT. CHEST TUBE IRRIGATED BY DR SANCHEZ THIS AFTERNOON WITHOUT MUCH RETURN NOTED. NO AIR LEAK OR TIDALING NOTED. SULLIVAN TEMP PROBE REMAINS IN PLACE WITH YELLOW URINE OUTPUT NOTED. PT REMAINS ON 2L O2 NC. VITAL SIGNS STABLE. PT SAT UP AND DANGLED AT BEDSIDE THIS AFTERNOON WITH EASE. NO FAMILY AT BEDSIDE. WILL CONTINUE TO MONITOR AND REPORT OFF TO ONCOMING RN.
[2024-06-28] VITALS (52 sets, daily range): BP systolic 86–145; BP diastolic 63–101
--- NOTE | 2024-06-28 00:16 | NUR ---
DR WRIGHT NOTIFIED THAT PT IS HAVING SOME MILD HALLUCINATIONS WHICH IS NEW. SEE ORDERS
[2024-06-28 05:29] LABS: Hemoglobin 7.3 g/dL (13.5-17.5); Mean Corpuscular HGB 29.4 pg (26.0-34.0); Mean Corpuscular HGB Conc 33.2 g/dL (31.5-36.5); Mean Corpuscular Volume 89 fL (80-100); Mean Platelet Volume 9.3 fL (9.1-12.4); Platelet Count 338 K/mm3 (150-400); RDW Coefficient Variation 19.9 % (11.7-14.2); RDW Standard Deviation 63.6 fL (35.1-46.3); Red Blood Cell Count 2.48 M/mm3 (4.30-5.90); White Blood Cell Count 7.85 K/mm3 (4.00-11.30)
--- NOTE | 2024-06-28 05:54 | NUR ---
SHIFT SUMMERY PT HAS BEEN ALERT AND ORIENTED X 4 W/SOME VISUAL HALLUCINATIONS EARLY IN THE SHIFT. DR WRIGHT WAS NOTIFIED AND THE HALLUCINATIONS RESOLVED W/OUT INTERVENTION. PT HAS BEEN SR ON THE BLEMISH REMOVER, BP WNL. HE HAS NOT SLEPT WELL TONIGHT. HE HAS BEEN MEDICATIED FOR BACK/RIB PAIN PER EMAR. NO N/V/D. SULLIVAN CATH INTACT PATENT AND DRAINING YELLOW URINE TO GRAVITY. CHEST TUBE W/NO OUTPUT THIS SHIFT.
[2024-06-28 06:00] LABS: Albumin, Blood 1.1 g/dL (3.4-5.0); Albumin/Globulin Ratio 0.3 (0.8-1.8); Bilirubin, Total 0.3 mg/dL (0.1-1.0); Calcium, Blood 7.8 mg/dL (8.5-10.1); Creatinine, Blood 0.25 mg/dL (0.60-1.20); Globulin, Blood 3.3 g/dL (2.2-4.0); Potassium, Blood 3.8 mmol/L (3.5-5.5); Total Protein, Blood 4.4 g/dL (6.4-8.2)
[2024-06-28 06:07] LABS: BASOPHILS ABSOLUTE MAN 0.07 K/mm3 (0.00-0.23); BASOPHILS PERCENT MAN 1 % (0-2); EOSINOPHILS ABSOLUTE MAN 0.07 K/mm3 (0.00-0.68); EOSINOPHILS PERCENT MAN 1 % (0-6); LYMPHOCYTES % ATYPICAL MANUAL 1 % (0-0); LYMPHOCYTES ABSOLUTE MAN 1.02 K/mm3 (0.84-5.20); LYMPHOCYTES PERCENT MAN 12 % (21-46); MONOCYTES ABSOLUTE MAN 0.94 K/mm3 (0.16-1.47); MONOCYTES PERCENT MAN 12 % (4-13); NEUTROPHILS ABSOLUTE MAN 5.73 K/mm3 (1.96-9.15); SEG NEUTROPHILS PERCENT MAN 73 % (41-73); TOTAL CELLS COUNTED 100
[2024-06-28 10:32] LABS: Percent Saturation 15.2 % (20.0-50.0)
--- NOTE | 2024-06-28 10:55 | NUR ---
BRONCH BONCHOSCOPY DONE BY DR SANCHEZ WITH RT TEMI AND ERNESTINE AT BEDSIDE. BRONCH STARTED AT 1025 AND ENDED AT 1042. PT RECIEVED 50 MCG FENTANYL, 2 MG VERSED, AND 160 MG PROPOFOL. VITAL SIGNS REMAINED STABLE. PT ON 10L O2 HIFLOW NC. CXR POST BRONCH DONE. PT DROWSEY, BUT ABLE TO FOLLOW COMMANDS AT THIS TIME. WILL CONTINUE TO MONTIOR.
[2024-06-28] MEDS ORDERED: Lidocaine HCl 2% 10 ML SDA XX ONE (11:00)
[2024-06-28] MEDS ORDERED: Dornase Alfa 1 MG/ML Neb INH SCH (11:30)
[2024-06-28] MEDS ORDERED: Dornase Alfa 5 MG,NS 25 ML in Syringe 1 SYR XX SCH (15:35)
[2024-06-28] MEDS ORDERED: Alteplase 1 MG/ML 10 MG,NS 30 ML in Syringe 1 SYR XX SCH (15:35)
[2024-06-28] MEDS ORDERED: Dornase Alfa 1 MG/ML Neb XX ONE (16:00)
[2024-06-28] MEDS ORDERED: Ondansetron HCl 2 MG / ML 2ML Vial ONE (16:28)
[2024-06-28] MEDS ORDERED: Ondansetron HCl 2 MG / ML 2ML Vial IV PRN (16:30)
[2024-06-28 17:00] LABS: Automated BF WBC Count 0.934 K/mm3 (0-999)
[2024-06-28 17:07] LABS: Body Fluid WBC Count 934 /mm3 (0-999)
[2024-06-28 17:20] LABS: RBC Count, Body Fluid 11 /mm3 (0-0)
[2024-06-28 17:23] LABS: Appearance, Body Fluid Clear (Clear); Color, Body Fluid L Yellow (None-Yellow); Glucose, Body Fluid 100 mg/dL; Lactate Dehydrogenase, Body Fl 54 U/L; Protein, Body Fluid 1.2 g/dL
--- NOTE | 2024-06-28 17:28 | NUR ---
SHIFT SUMMARY PT HAS REMAINED ALERT AND ORIENTED WHEN AWAKE THIS SHIFT. PT WITH A FEW PERIODS OF NAPPING THROUGHOUT THE DAY. PT WITH PAIN RELATED TO MULTIPLE PROCEDURES THIS SHIFT. PT MED WITH FENTANYL, OXYCODONE, AND TYLENOL PER EMAR. BRONCHOSCOPY DONE THIS MORNING BY DR SANCHEZ. SEE NN. PT TO CT SCAN THIS AFTERNOON AND LEFT POSTERIOR THORCENTESIS DONE BY DR SANCHEZ AT BEDSIDE WITH 850 CC OF FLUID DRAINED. PT WITH GAUZE AND TEGADERM DRESSING TO SITE INTACT. CHEST TUBE TO RIGHT LATERAL SITE REMAINS IN PLACE WITH SCANT DRAINAGE NOTED THIS SHIFT. INTRAPLEURAL TPA ADMINISTERED VIA CHEST TUBE THIS EVENING BY DR SANCHEZ. CHEST TUBE TO REMAIN CLAMPED FOR 1 HOUR POST TPA ADMIN, THEN RETURN TO SUCTION. PICC TO SULAIMAN REMAINS C/D/I, SALINE LOCKED. MEDIPORT NOTED TO CHEST, NOT ACCESSED. PT TAKING SIPS OF WATER, BUT WITH POOR APPETITE THIS SHIFT. PT TITRATED FROM 4L O2 NC TO ROOM AIR THIS AFTERNOON. VITAL SIGNS STABLE. SULLIVAN TEMP PROBE REMAINS IN PLACE WITH LARGE AMOUNT OF YELLOW URINE OUTPUT NOTED. PT SPOUSE AT BEDSIDE MOST OF THIS AFTERNOON AND UPDATED MULTIPLE TIMES. WILL CONTINUE TO MONITOR AND REPORT OFF TO ONCOMING RN.
[2024-06-28 17:31] LABS: pH, Body Fluid 7.1
[2024-06-28 17:37] LABS: Albumin, Body Fluid 0.5 g/dL; Triglycerides, Body Fluid 14 mg/dL
[2024-06-28 17:54] LABS: Total Cell Count, Body Fluid 100
--- NOTE | 2024-06-28 20:41 | NUR ---
PT REQUESTED THAT LIGHT BE LEFT ON IN HIS ROOM AND HIS DOOR REMAIN OPEN WELL HIS CURTAIN. ALL HS MEDICATIONS GIVEN EARLY POSSIBLE PER EMAR AND UNDERSTAND PT REQUEST LITTLE DISTURBANCE ICU PROTOCOL ALLOWS
[2024-06-28] MEDS ORDERED: N-Acetylcysteine 600 MG CAP PO SCH (21:00)
[2024-06-29] VITALS (80 sets, daily range): BP systolic 85–132; BP diastolic 53–97
[2024-06-29 03:47] LABS: BASOPHILS ABSOLUTE AUTO 0.03 K/mm3 (0.00-0.23); BASOPHILS PERCENT AUTO 0 % (0-2); EOSINOPHILS ABSOLUTE AUTO 0.06 K/mm3 (0.00-0.68); EOSINOPHILS PERCENT AUTO 1 % (0-6); Hematocrit 22.5 % (37.0-53.0); Hemoglobin 7.5 g/dL (13.5-17.5); IMMATURE GRAN ABSOLUTE AUTO 0.09 K/mm3 (0.00-0.10); IMMATURE GRAN PERCENT AUTO 1 % (0-1); LYMPHOCYTES ABSOLUTE AUTO 1.82 K/mm3 (0.84-5.20); LYMPHOCYTES PERCENT AUTO 16 % (21-46); MONOCYTES ABSOLUTE AUTO 1.16 K/mm3 (0.16-1.47); MONOCYTES PERCENT AUTO 10 % (4-13); Mean Corpuscular HGB 29.3 pg (26.0-34.0); Mean Corpuscular HGB Conc 33.3 g/dL (31.5-36.5); Mean Corpuscular Volume 88 fL (80-100); Mean Platelet Volume 8.9 fL (9.1-12.4); NEUTROPHILS ABSOLUTE AUTO 8.15 K/mm3 (1.96-9.15); NEUTROPHILS PERCENT AUTO 72 % (41-73); Platelet Count 409 K/mm3 (150-400); RDW Coefficient Variation 19.9 % (11.7-14.2); RDW Standard Deviation 63.6 fL (35.1-46.3); Red Blood Cell Count 2.56 M/mm3 (4.30-5.90); White Blood Cell Count 11.31 K/mm3 (4.00-11.30)
[2024-06-29 04:03] LABS: Calcium, Blood 8.4 mg/dL (8.5-10.1); Creatinine, Blood 0.3 mg/dL (0.60-1.20); Potassium, Blood 3.8 mmol/L (3.5-5.5)
--- NOTE | 2024-06-29 06:15 | NUR ---
SHIFT SUMMERY PT HAS HAD NO ACUTE CHANGES OVERNIGHT. CHEST TUBE DRAINING SEROSANGUINOUS DRAINAGE. PT HAS BEEN SR/ST ON THE POSTAL TRANSPORTATION CLERK. SULLIVAN CATH INTACT PATENT AND DRAINING. MEDICATED FOR PAIN PER EMAR. NO N/V/D. 2L NC W/OXYGEN SAT >92%
[2024-06-29] MEDS ORDERED: Polyethylene Glycol 3350 17 gm PO PRN (15:05)
--- NOTE | 2024-06-29 18:47 | NUR ---
Summary. Pt appears more improved this shift. Up to chair with walker and gait belt during physical therapy. PRN pain meds used with good effect throughout shift. Chest tube remains in place, site intact. No acute events this shift. See chart for details.
[2024-06-29] MEDS ORDERED: Methocarbamol 500 MG Tab PO SCH (21:00)
[2024-06-30] VITALS (17 sets, daily range): BP systolic 87–111; BP diastolic 57–84
[2024-06-30 04:09] LABS: BASOPHILS ABSOLUTE AUTO 0.03 K/mm3 (0.00-0.23); BASOPHILS PERCENT AUTO 0 % (0-2); EOSINOPHILS ABSOLUTE AUTO 0.06 K/mm3 (0.00-0.68); EOSINOPHILS PERCENT AUTO 1 % (0-6); Hematocrit 21.6 % (37.0-53.0); Hemoglobin 7.2 g/dL (13.5-17.5); Mean Corpuscular HGB 29.9 pg (26.0-34.0); Mean Corpuscular HGB Conc 33.3 g/dL (31.5-36.5); Mean Corpuscular Volume 90 fL (80-100); Mean Platelet Volume 8.7 fL (9.1-12.4); Platelet Count 436 K/mm3 (150-400); RDW Coefficient Variation 19.7 % (11.7-14.2); RDW Standard Deviation 63.2 fL (35.1-46.3); Red Blood Cell Count 2.41 M/mm3 (4.30-5.90); White Blood Cell Count 9.42 K/mm3 (4.00-11.30)
[2024-06-30 04:10] LABS: IMMATURE GRAN ABSOLUTE AUTO 0.08 K/mm3 (0.00-0.10); IMMATURE GRAN PERCENT AUTO 1 % (0-1); LYMPHOCYTES ABSOLUTE AUTO 1.63 K/mm3 (0.84-5.20); LYMPHOCYTES PERCENT AUTO 17 % (21-46); MONOCYTES PERCENT AUTO 14 % (4-13); NEUTROPHILS ABSOLUTE AUTO 6.32 K/mm3 (1.96-9.15); NEUTROPHILS PERCENT AUTO 67 % (41-73)
[2024-06-30 04:26] LABS: Bun/Creatinine Ratio 21.1 (12.0-20.0); Calcium, Blood 8.8 mg/dL (8.5-10.1); Creatinine, Blood 0.33 mg/dL (0.60-1.20); Potassium, Blood 3.4 mmol/L (3.5-5.5)
[2024-06-30 04:46] LABS: Magnesium, Blood 1.9 mg/dL (1.6-2.4); Phosphorus, Blood 2.2 mg/dL (2.5-4.9)
[2024-06-30] MEDS ORDERED: Potassium Phosphate Dibasic 30 MM in Dextrose 5% 500 ML IV ONE (05:00)
[2024-06-30] MEDS ORDERED: Mag Sulfate 1 GM/D5% 100ML 100 ML IV ONE (05:00)
--- NOTE | 2024-06-30 06:23 | NUR ---
SHIFT SUMMERY PT HAS BEEN ALERT AND ORIENTED X4, HE HAS RESTED OFF AND ON THIS SHIFT. SULLIVAN CATHETER INTACT PATENT AND DRAINING TO GRAVITY. RIGHT CHEST TUBE INTACT AND DRAINING. SR-ST ON THE MOBILE UI DESIGNER. BP WNL. NO ACUTE CHANGES OVERNIGHT. OXYGEN SAT >90% W/NO COMPLAINTS OF SHORTNESS OF BREATH.
[2024-06-30] MEDS ORDERED: Docusate Sodium 100 MG Cap PO SCH (09:00)
--- NOTE | 2024-06-30 15:27 | NUR ---
TRANSFER TO [facility] TRANSFERED FROM ICU. SLID OVER AND TRANSFERED TO BED. 2 RN SKIN CHECK COMPLETED WITH RUTHY, AMI. SMALL WOUND APPROX THE SIZE OF A PENCIL ERASER TO R BUTTOCKS, APPEARS TO BE HEALING. ORINETED TO ROOM. WATER PROVIDED. LS DIM T/O, THICK WHITE SPUTUM. PT USING SUCTION AT BEDSIDE. CHEST TUBE HOOKED UP TO SUCTION. INERTION SITE APPEARS TO BE FREE OF REDNESS OR DRAINAGE. NO DRAINAGE REPORTED FROM LAST ASSEMBLY MANAGER. PT DENIES OTHER NEEDS AT THIS TIME. CALL LIGHT IN TEACH. VS REVIEWED.
--- NOTE | 2024-06-30 15:38 | NUR ---
Transfer. Pt taken to PCU 14 at approximately 1511. All personal belongings sent with patient to new room. Report given to RN assuming care. Chest tube clamped per Dr. Arnold during transport. No acute events this shift. called and updated with new room number and patient location. See chart for further details.
[2024-06-30] MEDS ORDERED: NS 250 ML IV PRN (17:10)
--- NOTE | 2024-06-30 17:28 | NUR ---
SHIFT SUMMARY PT TRANSFERED TO UNIT THIS AFTERNOON. SPOKE ABOUT WANTING A REGULAR DIET RATHER THAN SOFT BITE SIZED. DR. CHATMAN AGREED TO THIS ORDER AND IT WAS PLACED BY RN. PT CHEST TUBE TAPED TO FLOOR AND HOOKED UP TO SUCTION. NO OTHER ACTE CHANGES IN PRIOR ASSESSMENT AT THIS TIME. CALL LIGHT IN REACH. BED LOW. BED ALARM ON PT HAS A HISTORY OF HOSPITAL DELERIUM.
[2024-07-01 00:21] VITALS: BP 93/70
[2024-07-01 04:04] LABS: BASOPHILS ABSOLUTE AUTO 0.02 K/mm3 (0.00-0.23); BASOPHILS PERCENT AUTO 0 % (0-2); EOSINOPHILS ABSOLUTE AUTO 0.06 K/mm3 (0.00-0.68); EOSINOPHILS PERCENT AUTO 1 % (0-6); Hemoglobin 7.4 g/dL (13.5-17.5); IMMATURE GRAN ABSOLUTE AUTO 0.06 K/mm3 (0.00-0.10); IMMATURE GRAN PERCENT AUTO 1 % (0-1); LYMPHOCYTES ABSOLUTE AUTO 1.61 K/mm3 (0.84-5.20); LYMPHOCYTES PERCENT AUTO 16 % (21-46); MONOCYTES ABSOLUTE AUTO 1.16 K/mm3 (0.16-1.47); MONOCYTES PERCENT AUTO 12 % (4-13); Mean Corpuscular HGB 28.8 pg (26.0-34.0); Mean Corpuscular HGB Conc 32.2 g/dL (31.5-36.5); Mean Corpuscular Volume 90 fL (80-100); Mean Platelet Volume 8.6 fL (9.1-12.4); NEUTROPHILS ABSOLUTE AUTO 7.15 K/mm3 (1.96-9.15); NEUTROPHILS PERCENT AUTO 71 % (41-73); Platelet Count 470 K/mm3 (150-400); RDW Coefficient Variation 19.8 % (11.7-14.2); RDW Standard Deviation 63.6 fL (35.1-46.3); Red Blood Cell Count 2.57 M/mm3 (4.30-5.90); White Blood Cell Count 10.06 K/mm3 (4.00-11.30)
[2024-07-01 04:12] VITALS: BP 115/77
[2024-07-01 04:34] LABS: Calcium, Blood 9.8 mg/dL (8.5-10.1); Creatinine, Blood 0.42 mg/dL (0.60-1.20); Potassium, Blood 3.7 mmol/L (3.5-5.5)
--- NOTE | 2024-07-01 06:35 | NUR ---
PT ESSENTIALLY STABLE THROUGHOUT THE SHIFT. PT IS AOX4 BUT HAS WOKEN UP X2 THIS SHIFT DISORIENTED AND CALLING FOR HELP AND ASKING "IS THIS REALLY HAPPENING RIGHT NOW? IS THIS REAL?" NO REPORTS OF HALLUCINATIONS WHEN AWAKE THOUGH. PT IS REORIENTABLE BUT DID HAVE TO CALL INITIALLY TO HELP WITH ORIENTATION AND EASE ANXIETY. VITAL SIGNS HAVE REMAINED STABLE. RESPIRATORY STATUS UNCHANGED, MINIMAL SEROUS DRAINAGE FROM CHEST TUBE, NO TIDALING OR AIR LEAK NOTED. CHEST TUBE DRESSING C/D/I, NO CREPITUS. CHEST TUBE REMAINS -[id number] WITH ACTIVE WALL SUCTION. PT HAS BEEN MEDICATED FOR PAIN X3, SEE MAR. PT HAS BEEN COOPERATIVE AND APPRECIATIVE OF CARE. PICC LINE FLUSHES AND DRAWS ALL LINES.
[2024-07-01] MEDS ORDERED: Polyethylene Glycol 3350 17 gm PO PRN (07:55)
[2024-07-01 08:35] VITALS: BP 127/81
[2024-07-01 11:13] VITALS: BP 120/87
[2024-07-01] MEDS ORDERED: Sod Ferric Gluc Complx/Sucrose 125 MG in NS 100 ML IV SCH (14:44)
[2024-07-01 16:31] VITALS: BP 116/88
[2024-07-01] MEDS ORDERED: Ampicillin Sod/Sulbactam Sod 3 GM in NS 100 ML IV SCH (18:00)
--- NOTE | 2024-07-01 18:20 | NUR ---
Spiritual Care Visit. Pt. is awake and welcomes my visit. Pt. displays evidence of being more aware and verbally engaged from previous visits. Pt. verbalized an exp[ectation that he might go home on Sunday. Consdiered matters of eliu and belief and sought to normalize the Pt. experience. Prayed with the Pt. Pt. verbalized gratitude for the spiritual care visit and weolcomed this turret press operator to return.
--- NOTE | 2024-07-01 19:45 | NUR ---
End of Shift Pt A&O x4. Pt denying hallucinations this shift. VSS. Spo2 intermittently 88-90% on RA. 1L NC applied PRN for spo2 > 92%. Chest tube to suction remains in place w/ no output this shift. Pt w/ cough producing thick grande secretions. Monitor showing SR-ST, HR 90s-110. Pt 1 person moderate assist for out of bed transfers.
[2024-07-01 20:47] VITALS: BP 125/4
[2024-07-02] VITALS (8 sets, daily range): BP systolic 97–155; BP diastolic 68–100
[2024-07-02 05:05] LABS: Hematocrit 21.1 % (37.0-53.0); Hemoglobin 6.9 g/dL (13.5-17.5); Mean Corpuscular HGB 29.4 pg (26.0-34.0); Mean Corpuscular HGB Conc 32.7 g/dL (31.5-36.5); Mean Corpuscular Volume 90 fL (80-100); Mean Platelet Volume 8.5 fL (9.1-12.4); Platelet Count 458 K/mm3 (150-400); RDW Coefficient Variation 19.8 % (11.7-14.2); RDW Standard Deviation 63.8 fL (35.1-46.3); Red Blood Cell Count 2.35 M/mm3 (4.30-5.90); White Blood Cell Count 8.13 K/mm3 (4.00-11.30)
[2024-07-02 05:33] LABS: Albumin, Blood 1.3 g/dL (3.4-5.0); Albumin/Globulin Ratio 0.4 (0.8-1.8); Bilirubin, Total 0.2 mg/dL (0.1-1.0); Bun/Creatinine Ratio 24.9 (12.0-20.0); Calcium, Blood 9.6 mg/dL (8.5-10.1); Creatinine, Blood 0.4 mg/dL (0.60-1.20); Globulin, Blood 3.7 g/dL (2.2-4.0); Potassium, Blood 3.2 mmol/L (3.5-5.5)
[2024-07-02 06:30] LABS: BAND PERCENT MAN 4 % (0-8); BASOPHILS ABSOLUTE MAN 0.08 K/mm3 (0.00-0.23); BASOPHILS PERCENT MAN 1 % (0-2); EOSINOPHILS ABSOLUTE MAN 0.16 K/mm3 (0.00-0.68); EOSINOPHILS PERCENT MAN 2 % (0-6); LYMPHOCYTES ABSOLUTE MAN 1.38 K/mm3 (0.84-5.20); LYMPHOCYTES PERCENT MAN 17 % (21-46); MONOCYTES ABSOLUTE MAN 0.65 K/mm3 (0.16-1.47); MONOCYTES PERCENT MAN 8 % (4-13); NEUTROPHILS ABSOLUTE MAN 5.85 K/mm3 (1.96-9.15); SEG NEUTROPHILS PERCENT MAN 68 % (41-73); TOTAL CELLS COUNTED 100
--- NOTE | 2024-07-02 06:34 | NUR ---
PT STABLE THROUGHOUT SHIFT EXCEPT FOR INTERMITTENTLY NEEDING SUPPLEMENTAL O2 TO MAINTAIN SATS >92%. PT VITAL SIGNS OTHERWISE WNL. PT REMAINED AOX4 AND DID NOT HAVE ANY EPISODES OF CALLING OUT OR ANXIETY PREVIOUS NOC SHIFT. CHEST TUBE REMAINS IN PLACE, NO AIR LEAK OR TIDALING AND NO OUTPUT. DRESSING REMAINS C/D/I. PT TOLERATING IV ABX WELL IN LT ARM PICC. PT HAS HAD GOOD URINARY OUTPUT USING URINAL AT BEDSIDE. PT CONTINUES TO HAVE PRODUCTIVE COUGH AND SELF SUCTIONS APPROPRIATELY. BED IN LOWEST POSITION, BRAKES ON, EXIT ALARM ON. CALL LIGHT AND BEDSIDE TABLE IN REACH.
[2024-07-02] MEDS ORDERED: Potassium Chloride 20 MEQ TabCR PO ONE (07:00)
[2024-07-02 16:58] LABS: Hematocrit 25.2 % (37.0-53.0); Hemoglobin 8.3 g/dL (13.5-17.5)
--- NOTE | 2024-07-02 18:18 | NUR ---
End of Shift Pt A&O x4. VSS. Chest tube removed by foreign policy officer this shift & dressing placed to site. Pt tolerated well. Spo2 > 92% on 2L NC titrated to RA this shift. Monitor showing SR-ST, Hr 90s-110. Pt c/o pain "in between shoulders." Pt medicated w/ medication per emar/pt request w/ pt report of improvement. Pt hgb low this AM. 1 unit pRBCs transfused per MD order. Pt tolerated well. Pt anticipating discharge home tomorrow.
--- NOTE | 2024-07-02 20:00 | NUR ---
ASSUMPTION OF CARE NOTE A/Ox4 AND COOPERATIVE WITH CARE. ANSWERS QUESTIONS APPROPRIATELY AND ABLE TO MAKE HIS NEEDS KNOWN. CARDIAC, TELE SHOWS SR-ST 90-110'S WIHT NO REPORTS OF CP, PRESSURE OR DIZZINESS. DBP ELEVATED RANGING 90-100'S. RESPIRATORY, MAINTAINS SPO2 >90% ON RA WITH NO REPORTS OF SOB OR DYSPNEA AT REST. CHEST TUBE REMOVED ON DAYSHIFT 07/02/24 WITH SITE DRESSING C/D/I. MINOR SITE TENDERNESS REPORTED. GI/, ABLE TO USE URINAL IN BED INDEPENDENTLY VOIDING CLEAR YELLOW URINE. DENIES N/V/D OR ABD PAIN AT THIS TIME. ENDORSES SOME CHRONIC BACK PAIN THAT IS WELL CONTROLLED WITH PRN PAIN MEDICATIONS. SKIN OVERALL C/D/I. PICC LINE IN PLACE IN LEFT UPPER ARM. KVO INFUSING AT THIS TIME. JESUS BOYER OF THIS NOTE.
[2024-07-03 04:11] VITALS: BP 150/94
[2024-07-03 04:46] LABS: Hematocrit 25.2 % (37.0-53.0); Hemoglobin 8.2 g/dL (13.5-17.5); Mean Corpuscular HGB 28.7 pg (26.0-34.0); Mean Corpuscular HGB Conc 32.5 g/dL (31.5-36.5); Mean Corpuscular Volume 88 fL (80-100); Mean Platelet Volume 8.6 fL (9.1-12.4); Platelet Count 458 K/mm3 (150-400); RDW Coefficient Variation 18.6 % (11.7-14.2); RDW Standard Deviation 59.2 fL (35.1-46.3); Red Blood Cell Count 2.86 M/mm3 (4.30-5.90); White Blood Cell Count 9.05 K/mm3 (4.00-11.30)
[2024-07-03 05:24] LABS: Albumin, Blood 1.4 g/dL (3.4-5.0); Albumin/Globulin Ratio 0.4 (0.8-1.8); Bilirubin, Total 0.4 mg/dL (0.1-1.0); Bun/Creatinine Ratio 23.7 (12.0-20.0); Calcium, Blood 9.8 mg/dL (8.5-10.1); Creatinine, Blood 0.42 mg/dL (0.60-1.20); Potassium, Blood 3.3 mmol/L (3.5-5.5); Total Protein, Blood 5.4 g/dL (6.4-8.2)
[2024-07-03 05:29] LABS: BAND PERCENT MAN 1 % (0-8); BASOPHILS PERCENT MAN 0 % (0-2); EOSINOPHILS ABSOLUTE MAN 0.18 K/mm3 (0.00-0.68); EOSINOPHILS PERCENT MAN 2 % (0-6); LYMPHOCYTES % ATYPICAL MANUAL 2 % (0-0); LYMPHOCYTES ABSOLUTE MAN 1.71 K/mm3 (0.84-5.20); LYMPHOCYTES PERCENT MAN 17 % (21-46); MONOCYTES ABSOLUTE MAN 0.72 K/mm3 (0.16-1.47); MONOCYTES PERCENT MAN 8 % (4-13); NEUTROPHILS ABSOLUTE MAN 6.42 K/mm3 (1.96-9.15); SEG NEUTROPHILS PERCENT MAN 70 % (41-73); TOTAL CELLS COUNTED 100
--- NOTE | 2024-07-03 05:54 | NUR ---
SHIFT SUMMARY NO ACUTE CHANGES SINCE ASSUMPTION OF CARE NOTE. SEE NOTE FOR MORE DETAILS. DID HAVE TO PLACE PT ON 1L NC WHEN SLEEPING TO MAINTAIN SPO2 >90%. BACK TO RA WHEN AWAKE. NO NEW ORDERS AT THIS TIME, WILL REPORT TO ONCOMING RN. JESUS BOYER OF THIS NOTE.
[2024-07-03] MEDS ORDERED: Potassium Chloride 20 MEQ TabCR PO ONE ×2 (06:00→08:00)
[2024-07-03] MEDS ORDERED: Potassium Chloride 40 MEQ in NS 250 ML IV ONE (06:40)
[2024-07-03 07:42] VITALS: BP 130/94
[2024-07-03] MEDS ORDERED: Amoxicillin/Clavulanate K 875 MG Tab PO SCH (09:00)
[2024-07-03] MEDS ORDERED: AMOCLA875 PO (10:54)
[2024-07-03] MEDS ORDERED: FERSU300 PO (10:54)
[2024-07-03] MEDS ORDERED: VISBIOME 112.51 EACH PO (10:56)
[2024-07-03] MEDS ORDERED: Nicoderm Cq1 EAC1 TOP (10:57)
--- NOTE | 2024-07-03 11:04 | NUR ---
"Spiritual care | Prior to discharge Pt. is awake in bed and welcmoed my visit. Facilitated an update and was able to tell the Pt. his discharge order had been received, as his nurse verbalized to me prior to my visit. Pt. displayed evidence of great alfredo. Prayed with the Pt. after he verbalized some of his minor concerns. Pt. verbalized gratitude for the many psiritual care visits."
[2024-07-03 11:33] VITALS: BP 150/98
--- NOTE | 2024-07-03 13:23 | NUR ---
DISCHARGE PATIENT TRANSPORTED VIA WC TO [facility] OF FACILITY, ASSISTED INTO VEHICLE. PRESENT DURING DISCHARGE INSTRUCTIONS. ENCOURAGED TO CALL WITH ANY QUESTIONS PRN.
== END 2024-07-03 13:07 | disposition home health service (06) | DRG 871 ==
LOC: ER 10:37 → ICUE 12:56 → PCU 12:56 → ICUE 14:42 → PCU 06-30 16:15
PROVIDERS: Emergency Medicine; Family Medicine; Internal Medicine Critical Care Medicine; Student in an Organized Health Care Education/Training Program; ADMIT Internal Medicine
PROC: 0W9930Z Drainage of Right Pleural Cavity with Drainage Device, Percutaneous Approach (ICD-10-PCS; principal; 2024-06-22)
PROC: 3E03329 Introduction of Other Anti-infective into Peripheral Vein, Percutaneous Approach (ICD-10-PCS; 2024-06-22)
PROC: 4A033R1 Measurement of Arterial Saturation, Peripheral, Percutaneous Approach (ICD-10-PCS; 2024-06-22)
PROC: 3E0L317 Introduction of Other Thrombolytic into Pleural Cavity, Percutaneous Approach (ICD-10-PCS; 2024-06-24)
PROC: 3E0L3GC Introduction of Other Therapeutic Substance into Pleural Cavity, Percutaneous Approach (ICD-10-PCS; 2024-06-24)
PROC: 3E0L317 Introduction of Other Thrombolytic into Pleural Cavity, Percutaneous Approach (ICD-10-PCS; 2024-06-25)
PROC: 3E0L3GC Introduction of Other Therapeutic Substance into Pleural Cavity, Percutaneous Approach (ICD-10-PCS; 2024-06-25)
PROC: 02HV33Z Insertion of Infusion Device into Superior Vena Cava, Percutaneous Approach (ICD-10-PCS; 2024-06-25)
PROC: B548ZZA Ultrasonography of Superior Vena Cava, Guidance (ICD-10-PCS; 2024-06-25)
PROC: 0B9C8ZZ Drainage of Right Upper Lung Lobe, Via Natural or Artificial Opening Endoscopic (ICD-10-PCS; 2024-06-26)
PROC: 0B938ZZ Drainage of Right Main Bronchus, Via Natural or Artificial Opening Endoscopic (ICD-10-PCS; 2024-06-28)
PROC: 0W9B3ZZ Drainage of Left Pleural Cavity, Percutaneous Approach (ICD-10-PCS; 2024-06-28)
PROC: 3E0L317 Introduction of Other Thrombolytic into Pleural Cavity, Percutaneous Approach (ICD-10-PCS; 2024-06-28)
PROC: 3E0L3GC Introduction of Other Therapeutic Substance into Pleural Cavity, Percutaneous Approach (ICD-10-PCS; 2024-06-28)
PROC: 0JH63WZ Insertion of Totally Implantable Vascular Access Device into Chest Subcutaneous Tissue and Fascia, Percutaneous Approach (ICD-10-PCS; 2024-06-30)
PROC: 0WH933Z Insertion of Infusion Device into Right Pleural Cavity, Percutaneous Approach (ICD-10-PCS; 2024-06-30)
DX: A41.9 Sepsis, unspecified organism (principal); J85.0 Gangrene and necrosis of lung; J96.01 Acute respiratory failure with hypoxia; C18.9 Malignant neoplasm of colon, unspecified; E87.21 Acute metabolic acidosis; E87.1 Hypo-osmolality and hyponatremia; C78.7 Secondary malignant neoplasm of liver and intrahepatic bile duct; I47.10 Supraventricular tachycardia, unspecified; J94.8 Other specified pleural conditions; E87.0 Hyperosmolality and hypernatremia; J98.11 Atelectasis; J90 Pleural effusion, not elsewhere classified; R65.20 Severe sepsis without septic shock; I10 Essential (primary) hypertension; I25.10 Atherosclerotic heart disease of native coronary artery without angina pectoris; Z96.611 Presence of right artificial shoulder joint; E87.6 Hypokalemia; D50.9 Iron deficiency anemia, unspecified; I48.0 Paroxysmal atrial fibrillation; F17.210 Nicotine dependence, cigarettes, uncomplicated; R45.1 Restlessness and agitation; R74.8 Abnormal levels of other serum enzymes; E83.42 Hypomagnesemia; E83.39 Other disorders of phosphorus metabolism; M54.9 Dorsalgia, unspecified; Z79.899 Other long term (current) drug therapy; Z79.891 Long term (current) use of opiate analgesic; Z79.2 Long term (current) use of antibiotics; Z79.1 Long term (current) use of non-steroidal anti-inflammatories (NSAID); Z91.018 Allergy to other foods; Z51.11 Encounter for antineoplastic chemotherapy; Z98.890 Other specified postprocedural states; Z87.19 Personal history of other diseases of the digestive system; Z90.49 Acquired absence of other specified parts of digestive tract
CPT/HCPCS: 0241U; 0528U; 32551; 36415; 36430; 36569; 36600; 51702; 71045; 71250; 71260; 80048; 80053; 80202; 82042; 82140; 82728; 82803; 82945; 82947; 83540; 83550; 83605; 83615; 83735; 83880; 83986; 84100; 84157; 84295; 84300; 84478; 84484; 85014; 85018; 85025; 85610; 85730; 86850; 86900; 86901; 86923; 87040; 87070; 87075; 87076; 87077; 87186; 87205; 87206; 88108; 88305; 88341; 88342; 89051; 93005; 93010; 94640; 94664; 94667; 94668; 94760; 94761; 94762; 96365-59; 97110; 97116; 97162; 97165; 97530; 97535; 99285-25; A9270; C1729; C1751; C1769; J0282; J0295; J1650; J2003; J2185; J2250; J2405; J2543; J2704; J2916; J2997; J3010; J3370; J3475; J3480; J7030; J7050; J7060; J7120; P9016; Q9967